=== PATIENT | male | born 1930 | race Hispanic/Latino ===

== ENCOUNTER 2018-05-20 11:06 | Day surgery (SDC) | payer MEDICARE, BC ==
[2018-05-17 13:03] VITALS: BMI 25.9
[2018-05-20] MEDS ORDERED: Midazolam 2 MG/2 ML VIAL ONE (14:43)
[2018-05-20] MEDS ORDERED: Lidocaine 1% Inj (20ml) ONE (14:43)
[2018-05-20] MEDS ORDERED: Oxycodone/Acetaminophen 5/325 mg Tab PO PRN (16:12)
[2018-05-20] MEDS ORDERED: Sodium Chloride 0.45% 1,000 ML IV SCH (16:15)
[2018-05-20 17:15] VITALS: RESP 18; TEMP 97.8; O2SAT 96
[2018-05-20 17:50] VITALS: BP 132/70; PULSE 73
--- NOTE | 2018-05-20 19:53 | CT ---
PROCEDURE: CT guided liver biopsy. HISTORY: Pancreatic mass with multiple liver lesions. Evaluate for metastatic disease. PHYSICIAN(S): Albert Clark MD. TECHNIQUE: The relative risks and indications of the procedure were explained to the patient and consent obtained. The patient was placed supine on the CT scanner and preliminary images through the liver obtained. Conscious sedation and monitoring were provided throughout the procedure by a nurse. A 2.5 cm lesion in the right lobe of the liver adjacent to the gallbladder was selected for biopsy. . A right lateral approach was selected and the area prepped and draped in the usual sterile fashion. 1% Xylocaine was used to anesthetize the skin and soft tissues. A 17-gauge guiding needle was advanced into the 2.5 cm right liver mass. Its position was confirmed with CT. Using coaxial technique, multiple core biopsies were obtained. The postprocedure images show no evidence of significant hemorrhage. IMPRESSION: 1. CT-guided liver biopsy as described above.
== END 2018-05-20 17:50 | disposition home or self-care (01) ==
LOC: SDS 11:06
PROVIDERS: ATTEND Radiology Vascular & Interventional Radiology
DX: K86.89 Other specified diseases of pancreas (principal); K76.89 Other specified diseases of liver
CPT/HCPCS: 47000; 77012; 88307; J2250; J2405; J3010; J7030

== ENCOUNTER 2018-06-15 08:23 | Day surgery (SDC) | payer MEDICARE, BC ==
[2018-06-14 11:22] VITALS: BMI 26.1
[2018-06-15 09:04] LABS: BASO # 0.02 K/mm3 (0.0-2.0); BASO % 0.4 % (0.0-3.0); EOS # 0.1 (0.0-0.7); EOS % 1.5 % (1.5-5.0); GRAN # 3.25 (1.4-6.5); GRAN % 62.2 % (50.0-68.0); HEMOGLOBIN 12.5 g/dL (14.0-18.0); LYMPH # 1.4 (1.2-3.4); LYMPH % 25.9 % (22.0-35.0); MEAN CELL VOLUME 88.6 fl (80.0-105.0); MEAN CORPUSCULAR HEMOGLOBIN 29.6 pg (25.0-35.0); MEAN CORPUSCULAR HGB CONC 33.4 g/dl (31.0-37.0); MEAN PLATELET VOLUME 9.2 fl (7.0-11.0); MONO # 0.5 (0.1-0.6); RBC 4.22 10^6/uL (3.5-6.1); RED CELL DISTRIBUTION WIDTH 14.5 % (11.5-14.5); WHITE BLOOD COUNT 5.2 10^3/ul (4.5-11.0)
[2018-06-15 09:07] LABS: INR 0.99; PROTHROMBIN TIME 11.4 SECONDS (9.4-12.5)
[2018-06-15 09:10] LABS: PARTIAL THROMBOPLASTIN TIME 27.9 Seconds (25.1-36.5)
[2018-06-15] MEDS ORDERED: Midazolam 2 MG/2 ML VIAL ONE (11:14)
[2018-06-15] MEDS ORDERED: Oxycodone/Acetaminophen 5/325 mg Tab PO PRN (12:11)
[2018-06-15] MEDS ORDERED: Sodium Chloride 0.45% 1,000 ML IV SCH (12:15)
[2018-06-15 12:31] VITALS: O2SAT 96
[2018-06-15 13:18] VITALS: BP 143/46; PULSE 61; RESP 20; TEMP 97
--- NOTE | 2018-06-15 15:14 | VASCULAR ---
PROCEDURE: Ultrasound and fluoroscopic right internal jugular venous access port. CLINICAL HISTORY: Pancreatic carcinoma.Venous port for chemotherapy. PHYSICIAN(S): Albert Clark M.D. TECHNIQUE: The relative risks and indications of the procedure were explained to the patient and his daughter and consent obtained. The patient was placed supine on the arteriogram table and the right neck and chest prepped and draped in the usual sterile fashion. Conscious sedation monitoring was provided throughout the procedure by a nurse. Antibiotics were given prior to the procedure. Under direct ultrasound guidance, the right internal jugular vein was punctured with a micro-puncture set. A 0.035 angled Glidewire was advanced into the IVC. A 4 cm incision was made below the right clavicle and the pocket blunted dissected. A 8 Spanish single-lumen catheter, 22 cm long, was advanced to the SVC/RA junction. The catheter was trimmed and attached to the port. The port aspirates and injects easily. The port was placed in the pocket and closed in 2 layers. The patient tolerated the procedure well. IMPRESSION: Ultrasound and fluoroscopically placed right internal jugular venous access port.
== END 2018-06-15 13:36 | disposition home or self-care (01) ==
LOC: SDS 08:23
PROVIDERS: ATTEND Radiology Vascular & Interventional Radiology
DX: C25.9 Malignant neoplasm of pancreas, unspecified (principal)
CPT/HCPCS: 36415; 36561; 76937; 77001; 85025; 85610; 85730; 99152; C1769; C1788; J0690; J1644; J2250; J2405; J3010; J7030

== ENCOUNTER 2018-10-31 12:07 | Emergency (ER) | payer MEDICARE, BC ==
[2018-10-31 12:33] VITALS: BMI 27.8
[2018-10-31 12:35] VITALS: TEMP 97.4
--- NOTE | 2018-10-31 12:46 | ED PDOC ---
Arrival/HPI - General Time Seen by Provider: 10/31/18 12:19 Historian: Patient - History of Present Illness Narrative History of Present Illness (Text): 10/31/18 12:47 88 year old male, whose past medical history includes pancreatic CA (chemotherapy on 10/26/18), and persistent hernia, presents with abdominal pain associated with hernia, for 1 week. Patient states he's had hernia for many months. Patient informs starting chemotherapy in the summer, and it exacerbating his hernia. Patient informs of chronic constipation, which he states makes he pain much worse. Patient denies any fevers, chills, headache, dizziness, chest pain, shortness of breath, cough, back pain, neck pain, or any other complaint. Oncology: Dr Pearson PMD: Dr Oates Time/Duration: 1 week Symptom Course: Unchanged Past Medical History - Provider Review Nursing Documentation Reviewed: Yes - Infectious Disease Hx of Infectious Diseases: None - Cardiac Hx Pacemaker: No - Neurological Hx Paralysis: No - Hematological/Oncological Hx Blood Transfusions: No Hx Blood Transfusion Reaction: No - Musculoskeletal/Rheumatological Hx Musculoskeletal Disorders: Yes - Psychiatric Hx Emotional Abuse: No Hx Physical Abuse: No Hx Substance Use: No - Anesthesia Hx Anesthesia Reactions: No Hx Malignant Hyperthermia: No - Suicidal Assessment Feels Threatened In Home Enviroment: No Family/Social History - Physician Review Nursing Documentation Reviewed: Yes Family/Social History: No Known Family HX Hx Alcohol Use: Yes (FEW GLASSES WINE/NIGHT; STOPPED FEW WEEKS AGO) Hx Substance Use: No Allergies/Home Meds Allergies/Adverse Reactions: Allergies No Known Allergies Allergy (Verified 10/31/18 12:35) Home Medications: Home Meds Medication Instructions Recorded Confirmed Aspirin [Adult Low Dose Aspirin EC] 81 mg PO QAM 05/18/18 06/15/18 Atorvastatin [Lipitor] 20 mg PO QAM 05/18/18 06/15/18 Fluticasone/Vilanterol [Breo 1 pow IH [facility] 05/18/18 06/15/18 Ellipta] Umeclidinium [place] [Incruse 62.5 mcg [facility] 05/18/18 06/15/18 Ellipta] Lipase/Protease/Amylase [Creon 1 cap PO ACTID 06/14/18 06/15/18 [id number]] Review of Systems - Physician Review All systems were reviewed & negative as marked: Yes - Review of Systems Constitutional: absent: Fevers, Night Sweats Respiratory: absent: SOB, Cough Cardiovascular: absent: Chest Pain Gastrointestinal: Abdominal Pain Musculoskeletal: absent: Back Pain, Neck Pain Neurological: absent: Headache, Dizziness Physical Exam Vital Signs Reviewed: Yes Vital Signs Temp Pulse Resp BP Pulse Ox 10/31/18 12:33 97.4 F L 95 H 20 119/76 96 Temperature: Afebrile Blood Pressure: Normal Pulse: Regular Respiratory Rate: Normal Appearance: Positive for: Well-Appearing, Non-Toxic, Comfortable Pain Distress: None Mental Status: Positive for: Alert and Oriented X 3 - Systems Exam Head: Present: Atraumatic, Normocephalic Pupils: Present: PERRL Extroacular Muscles: Present: EOMI Conjunctiva: Present: Normal Mouth: Present: Moist Mucous Membranes Neck: Present: Normal Range of Motion Respiratory/Chest: Present: Clear to Auscultation, Good Air Exchange. No: Respiratory Distress, Accessory Muscle Use Cardiovascular: Present: Regular Rate and Rhythm, Normal S1, S2. No: Murmurs Abdomen: Present: Tenderness (Hernia mildly tender), Hernias (right inguinal hernia ) Back: Present: Normal Inspection Upper Extremity: Present: Normal Inspection. No: Cyanosis, Edema Lower Extremity: Present: Normal Inspection. No: Edema Neurological: Present: Speech Normal Skin: Present: Warm, Dry, Normal Color. No: Rashes Psychiatric: Present: Alert, Oriented x 3, Normal Insight, Normal Concentration Medical Decision Making ED Course and Treatment: 10/31/18 12:56 Impression: 88 year old male presents with hernia and abdominal pain. Plan: -- CMP, Lipase, Mg -- CBC, Heme -- Urinalysis -- Reassess and disposition Prior Visits: Notes and results from previous visits were reviewed. Progress Notes: 10/31/18 12:57 EKG reviewed by me, shows: Normal sinus rhythm @85 Right Bundle Branch Block 10/31/18 15:02 incerated hernia reduced by surgery bedside. leukocysosis suspected 2/2 pillo serrano. s/p reductions abd soft no ttp pain resolved. asking for dc. updated dr juarez covering dr puente./ - Scribe Statement The provider has reviewed the documentation as recorded by the Sharlene Jamison Provider Scribe Attestation: All medical record entries made by the Scribe were at my direction and personally dictated by me. I have reviewed the chart and agree that the record accurately reflects my personal performance of the history, physical exam, medical decision making, and the department course for this patient. I have also personally directed, reviewed, and agree with the discharge instructions and disposition. Disposition/Present on Arrival - Present on Arrival Any Indicators Present on Arrival: No History of DVT/PE: No History of Uncontrolled Diabetes: No Urinary Catheter: No History of Decub. Ulcer: No History Surgical Site Infection Following: None - Disposition Have Diagnosis and Disposition been Completed?: Yes Diagnosis: Hernia Disposition: HOME/ ROUTINE Disposition Time: 14:00 Condition: STABLE Discharge Instructions (ExitCare): Abdominal Hernia (DC) Additional Instructions: return to er with worsening symptoms or concerns. Referrals: Gerardo Oates MD [Primary Care Provider] - Follow up with primary Mckay Verma MD [Staff Provider] - Follow up with primary Feliciano Cote MD [Staff Provider] - Follow up with primary Forms: [employer] (Polish)
[2018-10-31] MEDS ORDERED: Morphine 2 mg/ml ISec IVP STA (13:10)
[2018-10-31] MEDS ORDERED: Sodium Chloride 0.9% 500 ML IV STA (13:10)
[2018-10-31 13:40] LABS: VENOUS BLOOD GAS BASE EXCESS 2.4 mmol/L (0.0-2.0); VENOUS BLOOD GAS PO2 69 mm/Hg (30-55); VENOUS BLOOD PH 7.32 (7.32-7.43)
[2018-10-31 13:43] LABS: BASO # 0.02 K/mm3 (0.0-2.0); BASO % 0.1 % (0.0-3.0); EOS % 0.2 % (1.5-5.0); GRAN # 15.34 (1.4-6.5); GRAN % 93.7 % (50.0-68.0); HEMOGLOBIN 9.9 g/dL (14.0-18.0); LYMPH # 0.8 (1.2-3.4); LYMPH % 5.1 % (22.0-35.0); MEAN CELL VOLUME 88.4 fl (80.0-105.0); MEAN CORPUSCULAR HGB CONC 31.6 g/dl (31.0-37.0); MEAN PLATELET VOLUME 9.6 fl (7.0-11.0); MONO # 0.2 (0.1-0.6); MONO % 0.9 % (1.0-6.0); PLATELET COUNT 289 10^3/uL (120.0-450.0); RBC 3.54 10^6/uL (3.5-6.1); WHITE BLOOD COUNT 16.4 10^3/uL (4.5-11.0)
[2018-10-31 13:56] LABS: ALB/GLOB RATIO 1.4 (1.1-1.8); ALBUMIN 3.5 g/dL (3.0-4.8); ALT/SGPT 41 U/L (7-56); AST/SGOT 25 U/L (17-59); BLOOD UREA NITROGEN 10 mg/dL (7-21); CALCIUM 8.9 mg/dL (8.4-10.5); GFR NON-AFRICAN AMERICAN > 60; LIPASE 35 U/L (23-300)
--- NOTE | 2018-10-31 14:01 | RAD ---
Date of service: 10/31/2018 HISTORY: abd pain COMPARISON: 11/29/2017 FINDINGS: LUNGS: No active pulmonary disease. PLEURA: No significant pleural effusion identified, no pneumothorax apparent. CARDIOVASCULAR: Aortic calcification Normal cardiac size. No pulmonary vascular congestion. OSSEOUS STRUCTURES: No significant abnormalities. VISUALIZED UPPER ABDOMEN: Normal. OTHER FINDINGS: Right-sided Port-A-Cath IMPRESSION: No active disease.
[2018-10-31 14:09] LABS: INR 1.03; PROTHROMBIN TIME 11.9 SECONDS (9.4-12.5)
[2018-10-31 14:18] LABS: LYMPHOCYTE 1 % (22.0-35.0); NEUTROPHIL 99 % (50.0-70.0); PLATELET ESTIMATE NORMAL (NORMAL)
--- NOTE | 2018-10-31 14:20 | CP.PCM.CON ---
History of Present Illness - History of Present Illness History of Present Illness: Surgery consult note for Dr. Cote, covering for Dr. Verma Consulted for: painful inguinal hernia Patient is an 88M with extensive PMH including CAD s/p NORMA, COPD, GERD and pancreatic cancer with invasion of the liver who is on chemotherapy and PSH including open appendectomy for ruptured appendix who has had BL inguinal her nias for several years. Patient states that the hernias have started giving him pain since he has started chemotherapy which causes him constipation. Patient states that yesterday he took several stool softeners and had many large, non- bloody bowel movements and last night/this AM he had worsening pain in his right inguinal hernia and could not reduce either inguinal hernia. He denies any nausea, vomiting, abdominal pain, fevers, chills, dysuria, hematuria, melena, hematochezia, chest pain, or SOB. He is passing gas. PMH: CAD, COPD, GERD, pancreatic adenocarcinoma PSH; R portacath, percutaneous coronary stent 2014, spinal surgery, open appendectomy ALL: NKDA Social: smoking cigarettes for 50 years--quit 20 years ago, smoked cigars--quit 5 years ago. 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 when he began chemotherapy, denies any drugs Review of Systems - Review of Systems All systems: reviewed and no additional remarkable complaints except (as per HPI) Past Patient History - Infectious Disease Hx of Infectious Diseases: None - Past Medical History & Family History Past Medical History?: Yes Past Family History: Reviewed and not pertinent - Past Social History Smoking Status: Former Smoker (quit cigarettes 20 years ago--smoked 50 years) Cigar Use: Yes (former quit 5 years ago) Alcohol: Other (former daily whisky) Drugs: Denies Home Situation {Lives}: With Family - CARDIAC Hx Pacemaker: No - NEUROLOGICAL Hx Paralysis: No - HEMATOLOGICAL/ONCOLOGICAL Hx Blood Transfusions: No Hx Blood Transfusion Reaction: No - MUSCULOSKELETAL/RHEUMATOLOGICAL Hx Musculoskeletal Disorders: Yes - PSYCHIATRIC Hx Emotional Abuse: No Hx Physical Abuse: No Hx Substance Use: No - SURGICAL HISTORY Hx Surgeries: Yes - ANESTHESIA Hx Anesthesia Reactions: No Hx Malignant Hyperthermia: No Meds Allergies/Adverse Reactions: Allergies Allergy/AdvReac Type Severity Reaction Status Date / Time No Known Allergies Allergy Verified 10/31/18 12:35 Physical Exam - Constitutional Appears: Well, Non-toxic, No Acute Distress - Head Exam Head Exam: ATRAUMATIC, NORMOCEPHALIC - Eye Exam Eye Exam: Normal appearance. absent: Conjunctival injection, Scleral icterus - ENT Exam ENT Exam: Mucous Membranes Moist, Normal Oropharynx - Respiratory Exam Respiratory Exam: NORMAL BREATHING PATTERN. absent: Accessory Muscle Use, Respiratory Distress - Cardiovascular Exam Cardiovascular Exam: RRR - GI/Abdominal Exam GI & Abdominal Exam: Soft. absent: Distended, Rebound, Tenderness - Exam Additional comments: BL inguinal hernias with no overlying skin changes L inguinal hernia easily reducible, non-tender R inguinal hernia reduced with some difficulty, moderately tender - Extremities Exam Extremities exam: Positive for: pedal pulses present. Negative for: calf tende rness, pedal edema - Neurological Exam Neurological exam: Alert, Oriented x3 - Psychiatric Exam Psychiatric exam: Normal Affect, Normal Mood - Skin Skin Exam: Dry, Intact, Normal Color, Warm Results - Vital Signs Recent Vital Signs: Last Vital Signs Temp 97.4 F L 10/31/18 12:33 Pulse 95 H 10/31/18 12:33 Resp 20 10/31/18 12:33 BP 119/76 10/31/18 12:33 Pulse Ox 96 10/31/18 12:33 - Labs Result Diagrams: 10/31/18 13:15 10/31/18 13:15 Labs: Laboratory Results - last 24 hr 10/31/18 10/31/18 10/31/18 13:15 13:15 13:15 WBC 16.4 H RBC 3.54 Hgb 9.9 L D Hct 31.3 L MCV 88.4 MCH 28.0 MCHC 31.6 RDW 18.0 H Plt Count 289 MPV 9.6 Gran % 93.7 H Lymph % (Auto) 5.1 L [place] % (Auto) 0.9 L Eos % (Auto) 0.2 L Baso % (Auto) 0.1 Gran # 15.34 H Lymph # (Auto) 0.8 L [place] # (Auto) 0.2 Eos # (Auto) 0.0 Baso # (Auto) 0.02 PT 11.9 INR 1.03 APTT 25.0 L pO2 VBG pH VBG pCO2 VBG HCO3 VBG Total CO2 VBG O2 Sat (Calc) VBG Base Excess VBG Potassium Sodium 131 L Chloride 97 L Glucose Lactate FiO2 Potassium 4.6 Carbon Dioxide 29 Anion Gap 10 BUN 10 Creatinine 0.6 L Est GFR ( Amer) > 60 Est GFR (Non-Af Amer) > 60 Random Glucose 105 Calcium 8.9 Magnesium 1.9 Total Bilirubin 0.9 AST 25 ALT 41 Alkaline Phosphatase 121 Total Protein 6.1 Albumin 3.5 Globulin 2.6 Albumin/Globulin Ratio 1.4 Lipase 35 Venous Blood Potassium 10/31/18 13:15 WBC RBC Hgb Hct MCV MCH MCHC RDW Plt Count MPV Gran % Lymph % (Auto) [place] % (Auto) Eos % (Auto) Baso % (Auto) Gran # Lymph # (Auto) [place] # (Auto) Eos # (Auto) Baso # (Auto) PT INR APTT pO2 69 H VBG pH 7.32 VBG pCO2 58.0 VBG HCO3 29.9 H VBG Total CO2 31.7 H VBG O2 Sat (Calc) 95.2 H VBG Base Excess 2.4 H VBG Potassium 4.6 Sodium 131.0 L Chloride 98.0 Glucose 107 Lactate 1.0 FiO2 21.0 Potassium Carbon Dioxide Anion Gap BUN Creatinine Est GFR ( Amer) Est GFR (Non-Af Amer) Random Glucose Calcium Magnesium Total Bilirubin AST ALT Alkaline Phosphatase Total Protein Albumin Globulin Albumin/Globulin Ratio Lipase Venous Blood Potassium 4.6 Assessment & Plan - Assessment and Plan (Free Text) Assessment: 88M with reducible BL inguinal hernias Plan: Inguinal hernias were reduced at bedside in the ER. Patient had no abdominal pain, no sign of obstruction Patient is clear for discharge to home with follow up with Dr. Verma in his office if needed for recurrent symptoms Patient educated on when to return to the ER: any fevers, chills, abdominal pain, nausea, vomiting, failure to pass gas or a bowel movement, or any other c oncerning symptoms. Discussed with Dr. Cote, who is covering for Dr. Luci Duncan, PGY2
[2018-10-31 14:34] VITALS: BP 124/80; PULSE 88; RESP 18
[2018-10-31 14:44] VITALS: O2SAT 99
--- NOTE | 2018-11-01 01:13 | CARD ---
APPROVED REPORT Date of service: 10/31/2018 EKG Measurement Heart [id number] IN [id number] <Conclusion> Sinus rhythm with 1st degree AV block with premature atrial complexes Left axis deviation Right bundle branch block Abnormal ECG
== END 2018-10-31 14:44 | disposition home or self-care (01) ==
LOC: ED 12:07
DX: K40.20 Bilateral inguinal hernia, without obstruction or gangrene, not specified as recurrent (principal); I25.10 Atherosclerotic heart disease of native coronary artery without angina pectoris; J44.9 Chronic obstructive pulmonary disease, unspecified; K21.9 Gastro-esophageal reflux disease without esophagitis; C25.9 Malignant neoplasm of pancreas, unspecified; Z87.891 Personal history of nicotine dependence
CPT/HCPCS: 71045; 80053; 82803; 83690; 83735; 85025; 85610; 85730; 93005; 96361; 96374; 99284; J2270; J7040

== ENCOUNTER 2018-11-06 08:49 | Inpatient (IN) | payer MEDICARE, BC ==
[2018-11-06] MEDS ORDERED: Sodium Chloride 0.9% 500 ML IV STA (09:17)
--- NOTE | 2018-11-06 09:23 | ED PDOC ---
Arrival/HPI - General Chief Complaint: Abdominal Pain Time Seen by Provider: 11/06/18 09:12 Historian: Patient - History of Present Illness Narrative History of Present Illness (Text): 11/06/18 09:20 88 year old male, whose past medical history includes pancreatic CA, hernia, chemotherapy, and CAD, who presents to the Emergency department complaining of abdominal hernia pain, subjective fever, and diarrhea. Patient was seen and d/c in the Emergency department last week. Patient denies any chills, chest pain, shortness of breath, nausea, vomiting, back pain, neck pain, headache, dizziness, or any other complaint. Symptom Onset: Gradual Symptom Course: Unchanged Activities at Onset: Light Context: Home Past Medical History - Provider Review Nursing Documentation Reviewed: Yes - Infectious Disease Hx of Infectious Diseases: None - Cardiac Hx Hypertension: Yes Hx Pacemaker: No - Neurological Hx Paralysis: No - Hematological/Oncological Hx Blood Transfusions: No Hx Blood Transfusion Reaction: No Hx Cancer: Yes (Pancreatic) - Musculoskeletal/Rheumatological Hx Musculoskeletal Disorders: Yes - Gastrointestinal Other/Comment: Pancreatic cancer - Psychiatric Hx Emotional Abuse: No Hx Physical Abuse: No Hx Substance Use: No - Surgical History Other/Comment: Port-a-cath - Anesthesia Hx Anesthesia Reactions: No Hx Malignant Hyperthermia: No - Suicidal Assessment Feels Threatened In Home Enviroment: No Family/Social History - Physician Review Nursing Documentation Reviewed: Yes Family/Social History: Unknown Family HX Smoking Status: Former Smoker Hx Alcohol Use: Yes (FEW GLASSES WINE/NIGHT; STOPPED FEW WEEKS AGO) Hx Substance Use: No Allergies/Home Meds Allergies/Adverse Reactions: Allergies No Known Allergies Allergy (Verified 11/06/18 09:10) Home Medications: Home Meds Medication Instructions Recorded Confirmed Aspirin [Adult Low Dose Aspirin EC] 81 mg PO QAM 05/18/18 11/06/18 Atorvastatin [Lipitor] 20 mg PO QAM 05/18/18 11/06/18 Fluticasone/Vilanterol [Breo 1 pow IH QAM 05/18/18 11/06/18 Ellipta] Umeclidinium [place] [Incruse 62.5 mcg IH QAM 05/18/18 11/06/18 Ellipta] Lipase/Protease/Amylase [Creon 1 cap PO ACTID 06/14/18 11/06/18 [id number]] Review of Systems - Physician Review All systems were reviewed & negative as marked: Yes - Review of Systems Constitutional: Normal Eyes: Normal ENT: Normal Respiratory: Normal. absent: SOB, Cough Cardiovascular: Normal. absent: Chest Pain Gastrointestinal: Abdominal Pain, Diarrhea. absent: Nausea, Vomiting Genitourinary Male: Normal. absent: Dysuria, Frequency Musculoskeletal: Normal. absent: Back Pain, Neck Pain Skin: Normal. absent: Rash Neurological: Normal. absent: Headache, Dizziness Endocrine: Normal Hemo/Lymphatic: Normal Psychiatric: Normal Physical Exam Vital Signs Reviewed: Yes Vital Signs Temp Pulse Resp BP Pulse Ox 11/06/18 09:01 98.8 F 78 18 121/70 95 Temperature: Afebrile Blood Pressure: Normal Pulse: Regular Respiratory Rate: Normal Appearance: Positive for: Well-Appearing, Non-Toxic, Comfortable Pain Distress: None Mental Status: Positive for: Alert and Oriented X 3 - Systems Exam Head: Present: Atraumatic, Normocephalic Pupils: Present: PERRL Extroacular Muscles: Present: EOMI Conjunctiva: Present: Normal Mouth: Present: Moist Mucous Membranes Neck: Present: Normal Range of Motion Respiratory/Chest: Present: Clear to Auscultation, Good Air Exchange. No: Respiratory Distress, Accessory Muscle Use Cardiovascular: Present: Regular Rate and Rhythm, Normal S1, S2. No: Murmurs Abdomen: Present: Tenderness (mild tenderness rt side), Hernias (bilateral inguinal hernias). No: Distention, Peritoneal Signs Back: Present: Normal Inspection Upper Extremity: Present: Normal Inspection. No: Cyanosis, Edema Lower Extremity: Present: Normal Inspection. No: Edema Neurological: Present: GCS=15, CN II-XII Intact, Speech Normal Skin: Present: Warm, Dry, Normal Color. No: Rashes Psychiatric: Present: Alert, Oriented x 3, Normal Insight, Normal Concentration Medical Decision Making ED Course and Treatment: 11/06/18 09:23 Impression: 88 year old male presents to the Emergency department complaining of abdominal hernia pain, fever, and diarrhea. Plan: -- VBG -- Cardiac ISO -- EKG -- Labs -- Chest X-ray -- Sodium Chloride -- UA -- Reassess and disposition Progress Notes: 11/06/18 09:32 EKG reviewed, shows NSR at 94 bpm. PVC's. 11/06/18 09:54 CXR reviewed, shows: IMPRESSION: Stable chronic prominence of the bilateral interstitial markings. No focal consolidation or pleural effusion. 11/06/18 14:17 CT abd/pelvis: IMPRESSION: Pancolitis, likely infectious/inflammatory in etiology. Redemonstration of pancreatic neck/body mass and Hepatic metastases. Additional stable findings as above. - RAD Interpretation Radiology Orders: 11/06/18 09:16 CHEST PORTABLE [RAD] Stat - Medication Orders Current Medication Orders: Sodium Chloride (Sodium Chloride 0.9%) 500 mls @ 999 mls/hr IV .Q31M STA Stop: 11/06/18 09:47 - Scribe Statement The provider has reviewed the documentation as recorded by the Scribe Stacy Hameed All medical record entries made by the Scribe were at my direction and personally dictated by me. I have reviewed the chart and agree that the record accurately reflects my personal performance of the history, physical exam, medical decision making, and the department course for this patient. I have also personally directed, reviewed, and agree with the discharge instructions and disposition. Disposition/Present on Arrival - Present on Arrival History of DVT/PE: No History of Uncontrolled Diabetes: No Urinary Catheter: No History of Decub. Ulcer: No History Surgical Site Infection Following: None - Disposition
[2018-11-06 09:42] LABS: BASO # 0.02 K/mm3 (0.0-2.0); BASO % 0.2 % (0.0-3.0); EOS % 0.1 % (1.5-5.0); GRAN # 7.5 (1.4-6.5); GRAN % 73.3 % (50.0-68.0); HEMOGLOBIN 10.1 g/dL (14.0-18.0); LYMPH # 0.8 (1.2-3.4); LYMPH % 7.6 % (22.0-35.0); MEAN CELL VOLUME 86.3 fl (80.0-105.0); MEAN CORPUSCULAR HEMOGLOBIN 27.6 pg (25.0-35.0); MEAN PLATELET VOLUME 9.6 fl (7.0-11.0); MONO # 1.9 (0.1-0.6); MONO % 18.8 % (1.0-6.0); RBC 3.66 10^6/uL (3.5-6.1); RED CELL DISTRIBUTION WIDTH 17.7 % (11.5-14.5); VENOUS BLOOD GAS BASE EXCESS -0.4 mmol/L (0.0-2.0); VENOUS BLOOD GAS PO2 116 mm/Hg (30-55); VENOUS BLOOD PH 7.38 (7.32-7.43); WHITE BLOOD COUNT 10.2 10^3/uL (4.5-11.0)
--- NOTE | 2018-11-06 09:44 | RAD ---
Date of service: 11/06/2018 HISTORY: abd pain COMPARISON: Chest radiograph dated 10/31/2018. FINDINGS: LUNGS: Stable chronic prominence of the bilateral interstitial markings. No focal consolidation. PLEURA: No significant pleural effusion identified, no pneumothorax apparent. CARDIOVASCULAR: Aortic atherosclerotic calcifications. Cardiomediastinal silhouette stably enlarged. OSSEOUS STRUCTURES: Unchanged. VISUALIZED UPPER ABDOMEN: Normal. OTHER FINDINGS: Right internal jugular access chest port, unchanged.. IMPRESSION: Stable chronic prominence of the bilateral interstitial markings. No focal consolidation or pleural effusion.
[2018-11-06 09:49] LABS: INR 1.11; PARTIAL THROMBOPLASTIN TIME 28.6 Seconds (25.1-36.5); PROTHROMBIN TIME 12.8 SECONDS (9.4-12.5)
[2018-11-06 10:03] LABS: TROPONIN I 0.06 ng/mL
[2018-11-06] MEDS ORDERED: Iohexol 240 (50 ml) ONE (10:11)
[2018-11-06] MEDS ORDERED: Iohexol 350 MG/100 ML VIAL ONE (10:11)
[2018-11-06 10:28] LABS: ALB/GLOB RATIO 1.3 (1.1-1.8); ALBUMIN 3.6 g/dL (3.0-4.8); ALT/SGPT 40 U/L (7-56); AST/SGOT 25 U/L (17-59); BLOOD UREA NITROGEN 9 mg/dL (7-21); CALCIUM 8.7 mg/dL (8.4-10.5); GFR NON-AFRICAN AMERICAN > 60; LIPASE 35 U/L (23-300)
[2018-11-06] MEDS ORDERED: Morphine 4 mg/ml ISec IVP STA (10:29)
--- NOTE | 2018-11-06 11:33 | CP.PCM.CON ---
History of Present Illness - History of Present Illness History of Present Illness: General surgery consult note for Dr. Cote, covering Dr. 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 Patient states that the hernias have started giving him pain since he has started chemotherapy which causes him constipation. Patient presented to the ED 6 days ago after taking multiple stool softeners with a painful right inguinal hernia that he couldn't reduce at home. Hernia was reduced at bedside with improvement in the symptoms and patient was sent home. Patient states that he has had persistent pain in the right groin all week, and has had non-bloody diarrhea for a few days, where he has a bowel movement every 2-3 hours. The hernia has recurred and he hasn't been able to reduce it, and now is associated with RLQ abdominal pain. He also admits to increased urinary frequency but denies any nausea, vomiting, fevers, chills, dysuria, hematuria, melena, hematochezia, chest pain, or SOB. He is passing gas. Hernia was reducible at bedside but recurred shortly afterwards. CT with PO contrast was performed which showed no intestinal obstruction, BL inguinal hernias with fat and fluid contents only, but pancolitis. PMH: CAD, COPD, GERD, pancreatic adenocarcinoma, BL inguinal hernias PSH; R portacath, percutaneous coronary stent 2014, spinal surgery, open appendectomy ALL: NKDA Social: smoking cigarettes for 50 years--quit 20 years ago, smoked cigars--quit 5 years ago. 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 when he began chemoth erapy, denies any drugs Review of Systems - Review of Systems All systems: reviewed and no additional remarkable complaints except (as per HPI) Past Patient History - Infectious Disease Hx of Infectious Diseases: None - Past Medical History & Family History Past Medical History?: Yes Past Family History: Reviewed and not pertinent - Past Social History Smoking Status: Former Smoker Alcohol: Other (former drinker 2-3 whiskies/day until began chemotherapy) Drugs: Denies - CARDIAC Hx Hypertension: Yes Hx Pacemaker: No - NEUROLOGICAL Hx Paralysis: No - HEMATOLOGICAL/ONCOLOGICAL Hx Blood Transfusions: No Hx Blood Transfusion Reaction: No Hx Cancer: Yes (Pancreatic) - MUSCULOSKELETAL/RHEUMATOLOGICAL Hx Musculoskeletal Disorders: Yes - GASTROINTESTINAL Other/Comment: Pancreatic cancer - PSYCHIATRIC Hx Emotional Abuse: No Hx Physical Abuse: No Hx Substance Use: No - SURGICAL HISTORY Other/Comment: Port-a-cath - ANESTHESIA Hx Anesthesia Reactions: No Hx Malignant Hyperthermia: No Meds Allergies/Adverse Reactions: Allergies Allergy/AdvReac Type Severity Reaction Status Date / Time No Known Allergies Allergy Verified 11/06/18 09:10 Physical Exam - Constitutional Appears: Well, Non-toxic, No Acute Distress - Head Exam Head Exam: ATRAUMATIC, NORMOCEPHALIC - Eye Exam Eye Exam: Normal appearance. absent: Conjunctival injection, Scleral icterus - ENT Exam ENT Exam: Mucous Membranes Moist, Normal Oropharynx - Respiratory Exam Respiratory Exam: NORMAL BREATHING PATTERN. absent: Accessory Muscle Use, Respiratory Distress - Cardiovascular Exam Cardiovascular Exam: RRR - GI/Abdominal Exam GI & Abdominal Exam: Soft, Tenderness (RLQ mild tenderness to palpation). absent: Distended - Exam Additional comments: Right inguinal hernia with palpable bowel contents, mildly tender, no overlying skin changes, reducible left inguinal hernia with palpable bowel contents, non-tender, no overlying skin changes, easily reduced - Extremities Exam Extremities exam: Positive for: pedal pulses present. Negative for: calf tenderness, pedal edema - Neurological Exam Neurological exam: Alert, Oriented x3 - Psychiatric Exam Psychiatric exam: Normal Affect, Normal Mood - Skin Skin Exam: Dry, Intact, Normal Color, Warm Results - Vital Signs Recent Vital Signs: Last Vital Signs Temp 98.8 F 11/06/18 09:01 Pulse 78 11/06/18 09:01 Resp 18 11/06/18 09:01 BP 121/70 11/06/18 09:01 Pulse Ox 95 11/06/18 09:01 - Labs Result Diagrams: 11/06/18 09:25 11/06/18 09:25 Labs: Laboratory Results - last 24 hr 11/06/18 11/06/18 11/06/18 09:25 09:25 09:25 WBC 10.2 D RBC 3.66 Hgb 10.1 L Hct 31.6 L MCV 86.3 MCH 27.6 MCHC 32.0 RDW 17.7 H Plt Count 153 MPV 9.6 Gran % 73.3 H Lymph % (Auto) 7.6 L Banner % (Auto) 18.8 H Eos % (Auto) 0.1 L Baso % (Auto) 0.2 Gran # 7.50 H Lymph # (Auto) 0.8 L [place]anner # (Auto) 1.9 H Eos # (Auto) 0.0 Baso # (Auto) 0.02 PT 12.8 H INR 1.11 APTT 28.6 pO2 VBG pH VBG pCO2 VBG HCO3 VBG Total CO2 VBG O2 Sat (Calc) VBG Base Excess VBG Potassium Sodium 128 L Chloride 97 L Glucose Lactate FiO2 Potassium 4.3 Carbon Dioxide 27 Anion Gap 8 L BUN 9 Creatinine 0.6 L Est GFR ( Amer) > 60 Est GFR (Non-Af Amer) > 60 Random Glucose 110 Calcium 8.7 Magnesium 1.8 Total Bilirubin 0.6 AST 25 ALT 40 Alkaline Phosphatase 164 H D Lactate Dehydrogenase 419 Total Creatine Kinase 24 L Troponin I 0.06 Total Protein 6.3 Albumin 3.6 Globulin 2.7 Albumin/Globulin Ratio 1.3 Lipase 35 Venous Blood Potassium 11/06/18 09:25 WBC RBC Hgb Hct MCV MCH MCHC RDW Plt Count MPV Gran % Lymph % (Auto) Banner % (Auto) Eos % (Auto) Baso % (Auto) Gran # Lymph # (Auto) Banner # (Auto) Eos # (Auto) Baso # (Auto) PT INR APTT pO2 116 H VBG pH 7.38 VBG pCO2 42.0 VBG HCO3 24.8 VBG Total CO2 26.1 VBG O2 Sat (Calc) 99.1 H VBG Base Excess -0.4 L VBG Potassium 4.1 Sodium 129.0 L Chloride 97.0 L Glucose 109 Lactate 0.8 FiO2 21.0 Potassium Carbon Dioxide Anion Gap BUN Creatinine Est GFR ( Amer) Est GFR (Non-Af Amer) Random Glucose Calcium Magnesium Total Bilirubin AST ALT Alkaline Phosphatase Lactate Dehydrogenase Total Creatine Kinase Troponin I Total Protein Albumin Globulin Albumin/Globulin Ratio Lipase Venous Blood Potassium 4.1 Assessment & Plan - Assessment and Plan (Free Text) Assessment: 88M with pancolitis and painful right inguinal hernia, non-painful left inguinal hernia Plan: No surgical intervention indicated at this time--patient is currently on chem otherapy and has pancolitis, so repair of the inguinal hernia is not ideal. May reconsider if patient's hernia becomes incarcerated or shows signs of obstruction Trend CBC and BMP, Mag, phos while inpatient--supplement as needed PRN pain and nausea medication IVF PT, incentive spirometer, SCD's Discussed with Dr. Cote, covering Dr. Luci Duncan, PGY2
--- NOTE | 2018-11-06 13:46 | CT ---
Date of service: 11/06/2018 PROCEDURE: CT Abdomen and Pelvis with contrast HISTORY: abd pain vomiting diarhea, h/o of hernia COMPARISON: PET-CT dated 09/13/2018 TECHNIQUE: Contrast dose: 100 mL Omnipaque 350 Radiation dose: Total exam DLP = 607.73 mGy-cm. This CT exam was performed using one or more of the following dose reduction techniques: Automated exposure control, adjustment of the mA and/or kV according to patient size, and/or use of iterative reconstruction technique. FINDINGS: LOWER THORAX: Cardiomegaly. Coronary arterial and valvular calcifications. Partially imaged implanted cardiac device leads. Chronic bibasilar interstitial changes. Right lower lobe 1.0 cm and 5 mm adjacent pulmonary nodules. LIVER: Multiple low-density hepatic lesions, the largest of which measures 4.8 x 4.1 cm in the inferior right hepatic lobe. Small scattered hepatic cysts. Mild intrahepatic biliary ductal dilatation. GALLBLADDER AND BILE DUCTS: Distended gallbladder. Dilated CBD measuring up to 1.4 cm. PANCREAS: Pancreatic atrophy. Low-density pancreatic neck/body lesion measuring 1.6 x 1.9 cm. Dilated main pancreatic duct measuring 9 mm. SPLEEN: Unremarkable. ADRENALS: Unremarkable. No mass. KIDNEYS AND URETERS: Unremarkable. No hydronephrosis. No solid mass. VASCULATURE: Unremarkable. No aortic aneurysm. No aortic atherosclerotic calcification or mural plaque present. BOWEL: Diffuse colonic wall thickening and pericolonic inflammatory change. APPENDIX: Findings to suggest acute appendicitis. PERITONEUM: Bilateral fat fluid containing inguinal hernias. No free air. LYMPH NODES: Unremarkable. No enlarged lymph nodes. BLADDER: Unremarkable. REPRODUCTIVE: Unremarkable. BONES: Diffuse osteopenia. Scattered lucent lesions within a few vertebral bodies and within the left iliac bone, measuring 121.6 x 1.0 cm (series 3, image 106). Multilevel spinal degenerative changes. Prior laminectomies from L3-5. OTHER FINDINGS: None. IMPRESSION: Pancolitis, likely infectious/inflammatory in etiology. Redemonstration of pancreatic neck/body mass and Hepatic metastases. Additional stable findings as above.
[2018-11-06] MEDS ORDERED: Piperacillin/Tazobact 3.375 gm 100 ML IVPB STA (13:52)
[2018-11-06] MEDS ORDERED: Sodium Chloride 0.9% 1,000 ML IV SCH (16:00)
[2018-11-06] MEDS: LIPASE PO SCH (17:23)
[2018-11-06] MEDS: PROTEASE PO SCH (17:23)
[2018-11-06] MEDS: AMYLASE PO SCH (17:23)
[2018-11-06 17:39] VITALS: BMI 24.2
--- NOTE | 2018-11-06 20:22 | CARD ---
APPROVED REPORT Date of service: 11/06/2018 EKG Measurement Heart [id number] <Conclusion> Sinus rhythm with premature ventricular complexes in bigeminy pattern RBBB Marked T wave abnormality, consider inferolateral ischemia Abnormal ECG
[2018-11-06] MEDS ORDERED: cefTRIAXone 1 gm 1 GM/100 ML BAG IV ONE (21:00)
[2018-11-06] MEDS ORDERED: metroNIDAZOLE IV 500 mg/100 ml 500 MG/100 ML BAG IV ONE (21:00)
--- NOTE | 2018-11-07 00:05 | HP ---
DATE OF EXAM: 11/06/2018 HISTORY OF PRESENT ILLNESS: This is an 88-year-old male who is coming into the hospital with pain in his right inguinal area. The patient has a past medical history of pancreatic cancer with invasion into his liver. He has been on chemotherapy, coronary artery disease with stent, COPD, GERD. The patient has right inguinal hernia. He had presented to the emergency room 6 days ago and it was reduced and he was discharged home. He has been on stool softeners. He currently was feeling well and he had another episode overnight. The patient has been having persisting pain in the right groin all week. The patient also complains of diarrhea. He has been given chemotherapy from Dr. Pearson for his pancreatic cancer. His next dose of chemotherapy in 3 days. The patient had his hernia reduced. The patient also was complaining of right lower quadrant abdominal pain. The patient had a CAT scan that showed colitis and is being admitted to the hospital for further evaluation. He denies any fevers or chills. No nausea. No vomiting. No dysuria, frequency. He has been having diarrhea for the past 3 days. He has no dizziness. No dysarthria. No diplopia. ALLERGIES: NO KNOW DRUG ALLERGIES. PAST MEDICAL HISTORY: 1. Coronary artery disease. 2. COPD. 3. GERD. 4. Pancreatic adenocarcinoma. 5. Inguinal hernia. PAST SURGICAL HISTORY: Right Port-A-Cath placement, stent placement 2014, spinal surgery, appendectomy. SOCIAL HISTORY: He quit smoking about 20 years ago, but he used to smoker cigars. He quit cigars about 5 years ago, he did smoke for about 50 years. He has a history of drinking whisky, but quit earlier this year when started getting physical therapy. He denies drug use. FAMILY HISTORY: Noncontributory. REVIEW OF SYSTEMS: All other review of symptoms are within normal limits except as mentioned. PHYSICAL EXAMINATION" VITAL SIGNS: Temperature is 98.2, pulse 78, blood pressure 122/62, respirations 18, O2 saturation 98%, height 5 feet 3 inches, weight 150 pounds, BMI is 26.6. GENERAL: The patient lying in bed, uncomfortable, and in no acute distress. HEENT: Atraumatic and normocephalic. Anicteric sclerae. Moist mucosa. [place] conjunctivae. No oral lesions. NECK: No JVD, anterior and posterior adenopathy, thyromegaly, or bruits. CARDIOVASCULAR: S1 and S2 regular. No murmur, rubs, or gallop. LUNGS: Clear to auscultation bilaterally. No wheezes, rales, or rhonchi. ABDOMEN: Bowel sounds are positive. Soft, nontender and nondistended. No hepatosplenomegaly. No rebound and no guarding EXTREMITIES: No cyanosis, clubbing, or edema. NEUROLOGIC: No facial asymmetry. Tongue is midline. No vulva deviation. Power is 5/5 upper extremity and lower extremity. Sensation intact in upper extremity and lower extremity. PSYCHIATRIC: He is awake, alert and oriented x3. No anxiety or depression. He has normal affect. GENITOURINARY: No CVA tenderness. Right inguinal hernia reduced, mild bulge. VASCULAR: 2+ pulses in the carotid pulses and pedal pulses. SKIN: No erythema or nodules SPINE: Shows normal curvature. LABORATORY DATA: White count of 10.2, hemoglobin 10.1, platelet count 153, INR is 1.1. Chemistry showed sodium 128, potassium 4.3, creatinine 0.6, AST, ALT 25 and 40. Troponin 0.06. Lipase is 35. He has CT of the abdomen and pelvis p.o. and IV contrast and it showed pancolitis with hepatic metastasis. His chest x-ray done shows stable chronic prominence of the bilateral incisional markings, no focal consolidation. ASSESSMENT: 1. Colitis. 2. Hyponatremia. 3. Coronary artery disease. 4. Right Port-A-Cath. 5. Diarrhea. 6. Right inguinal hernia. 7. Chronic obstructive pulmonary disease. 8. Gastroesophageal reflux disease. 9. Anemia, chronic. PLAN: The patient is going to be admitted to the hospital. He has colitis. He is going to be started on Zosyn for antibiotic. I will get consultation with Dr. Pearson from Oncology for the pancreatic adenocarcinoma and also get Dr. Lemus for colitis. The patient was seen by surgery. No surgical intervention done at this time. The patient is going to be on liquid diet. I will place the patient on IV fluids. The patient has hyponatremia, so I will repeat the patient's blood work tomorrow including magnesium and phosphorous level. I will order Clostridium difficile to rule out infection. I did speak to the patient's family at the bedside. Kana Penaloza MD [facility] # [id number]
[2018-11-07 00:37] VITALS: RESP 20
[2018-11-07 04:26] LABS: URINE BILIRUBIN NEGATIVE (NEGATIVE); URINE BLOOD LARGE (NEGATIVE); URINE GLUCOSE (UA) NEGATIVE (NEGATIVE); URINE LEUKOCYTE ESTERASE NEGATIVE Leu/uL (NEGATIVE); URINE PROTEIN TRACE mg/dL (<30 mg/dL); URINE UROBILINOGEN 0.2 E.U./dL (<1 E.U./dL)
[2018-11-07 04:35] LABS: URINE APPEARANCE SL CLOUDY (CLEAR); URINE COLOR YELLOW (YELLOW)
[2018-11-07 04:41] LABS: URINE BACTERIA RARE /hpf; URINE EPITHELIAL CELLS 0 - 2 /hpf (0-5); URINE RBC 20 - 25 /hpf (0-2); URINE WBC 0 - 2 /hpf (0-6)
[2018-11-07] MEDS: metroNIDAZOLE IV 500 mg/100 ml 500 MG/100 ML BAG IV SCH ×3 (05:12→21:23)
[2018-11-07 07:05] LABS: HEMOGLOBIN 8.9 g/dL (14.0-18.0); MEAN CELL VOLUME 86.8 fl (80.0-105.0); MEAN CORPUSCULAR HEMOGLOBIN 27.9 pg (25.0-35.0); MEAN CORPUSCULAR HGB CONC 32.1 g/dl (31.0-37.0); MEAN PLATELET VOLUME 9.9 fl (7.0-11.0); RBC 3.19 10^6/uL (3.5-6.1); RED CELL DISTRIBUTION WIDTH 17.7 % (11.5-14.5); WHITE BLOOD COUNT 8.5 10^3/uL (4.5-11.0)
[2018-11-07 07:15] LABS: ALB/GLOB RATIO 1.2 (1.1-1.8); ALBUMIN 2.8 g/dL (3.0-4.8); ALT/SGPT 30 U/L (7-56); AST/SGOT 19 U/L (17-59); BLOOD UREA NITROGEN 8 mg/dL (7-21); GFR NON-AFRICAN AMERICAN > 60
[2018-11-07 07:20] LABS: TROPONIN I 0.08 ng/mL
--- NOTE | 2018-11-07 08:44 | CP.PCM.PN ---
Subjective - Date & Time of Evaluation Date of Evaluation: 11/07/18 Time of Evaluation: 07:44 - Subjective Subjective: PGY-1 Farrah Geronimo D.O. Surgery progress note for Dr. Cote (covering Dr. Verma): Patient was seen and examined this morning. He states his inguinal hernias are back out, but it does not bother him. He denies any pain. He is tolerating PO intake. His diarrhea has improved. He admits to one episode of hematuria yesterday but subsequently has not seen any blood in his urine. He denies recent use of urinary catheters. Denies fevers/chills. Denies abdominal pain, nausea, vomiting. Objective - Vital Signs/Intake and Output Vital Signs (last 24 hours): Temp Pulse Resp BP Pulse Ox 99.6 F 74 20 98/55 L 95 11/07/18 08:14 11/07/18 08:14 11/07/18 08:14 11/07/18 08:14 11/07/18 08:14 - Medications Medications: Current Medications Acetaminophen (Tylenol 325mg Tab) 650 mg PO Q6H PRN PRN Reason: Fever >100.4 F Last Admin: 11/06/18 22:00 Dose: 650 mg Aspirin (Ecotrin) 81 mg PO QAM [facility]RA Sodium Chloride (Sodium Chloride 0.9%) 1,000 mls @ 100 mls/hr IV .Q10H [facility] Stop: 11/07/18 11:59 Last Admin: 11/06/18 17:22 Dose: 100 mls/hr Metronidazole (Flagyl) 500 mg in 100 mls @ 100 mls/hr IV Q8 [facility]; Protocol Last Admin: 11/07/18 05:12 Dose: 100 mls/hr Ceftriaxone Sodium (Rocephin 1 Gram Ivpb) 1 gm in 100 mls @ 200 mls/hr IV DAILY [facility]; Protocol Metoprolol Tartrate (Lopressor) 25 mg PO Q12 [facility] Lipase/Protease/Amylase [Suamya Martinez 24 ,000 Units Capsule] 1 Cap (Home Med) 1 cap PO ACTID [facility] Last Admin: 11/06/18 17:23 Dose: Not Given - Labs Labs: 11/07/18 05:30 11/07/18 05:30 PT 12.8 SECONDS (9.4-12.5) H 11/06/18 09:25 INR 1.11 11/06/18 09:25 APTT 28.6 Seconds (25.1-36.5) 11/06/18 09:25 - Constitutional Appears: Non-toxic, No Acute Distress - Head Exam Head Exam: ATRAUMATIC, NORMAL INSPECTION - Eye Exam Eye Exam: EOMI, Normal appearance - ENT Exam ENT Exam: Mucous Membranes Moist - Neck Exam Neck Exam: Normal Inspection - Respiratory Exam Respiratory Exam: NORMAL BREATHING PATTERN. absent: Accessory Muscle Use, Respiratory Distress - Cardiovascular Exam Cardiovascular Exam: REGULAR RHYTHM - GI/Abdominal Exam GI & Abdominal Exam: Soft. absent: Distended, Tenderness - Exam Additional comments: b/l inguinal hernia- easily reducible, no overlying skin changes, nontender - Extremities Exam Extremities Exam: absent: Pedal Edema - Neurological Exam Neurological Exam: Alert, Awake, Oriented x3 - Psychiatric Exam Psychiatric exam: Normal Affect, Normal Mood - Skin Skin Exam: Dry, Intact, Normal Color, Warm Assessment and Plan - Assessment and Plan (Free Text) Assessment: 88M with pancolitis and bilateral inguinal hernias (chronic) Plan: - No surgical intervention- poor candidate (chemotherapy for pancreatic CA) and patient does not desire surgical repair at this time - PRN analgesics Case discussed with attending, Dr. Cote.
[2018-11-07] MEDS: cefTRIAXone 1 gm 1 GM/100 ML BAG IV SCH (09:09)
--- NOTE | 2018-11-07 10:25 | PN ---
DATE: 11/07/2018 SUBJECTIVE: The patient has no complaints of any chest pain or shortness of breath. He says that his abdominal pain is better. PHYSICAL EXAMINATION: VITAL SIGNS: Temperature is 99.6, pulse of 74, blood pressure 98/55, respirations 20. GENERAL: The patient is lying in bed, flat, comfortable. HEENT: No oral lesion. Anicteric sclerae. Moist mucosa. NECK: No JVD, adenopathy, or thyromegaly. CARDIOVASCULAR: S1 and S2, regular. No murmurs, rubs, or gallops. LUNGS: Clear to auscultation bilaterally. No wheeze, rales, or rhonchi. ABDOMEN: Bowel sounds are positive, soft, nontender and nondistended. EXTREMITIES: No cyanosis, clubbing or edema. LABS: White count of 8.5, hemoglobin 8.9, creatinine 0.6. Sodium is 128. ASSESSMENT: 1. Colitis, acute. 2. Hyponatremia. 3. Coronary artery disease. 4. Diarrhea. 5. Right Port-A-Cath. 6. Right inguinal hernia. 7. Chronic obstructive pulmonary disease. 8. Gastroesophageal reflux disease. 9. Anemia, chronic. PLAN: The patient is currently comfortable. He is on Flagyl for his antibiotics. He is on morphine for pain. He is on metoprolol for his coronary disease. He is on Rocephin for antibiotics. The patient is on Tylenol. He is getting IV fluids. His troponin is 0.08. He does not have any chest pain. Currently, he is feeling well. I will advance his diet to a regular diet. He is waiting to get physical therapy. Kana Penaloza MD
[2018-11-07] MEDS ORDERED: Darbepoetin Alfa 100 mcg/ml Inj SC ONE (11:46)
[2018-11-07] MEDS: Lactobacillus Acidophilus 500 MU Cap PO SCH ×2 (13:42→17:13)
[2018-11-07] MEDS: LIPASE PO SCH ×2 (13:43→17:14)
[2018-11-07] MEDS: PROTEASE PO SCH ×2 (13:43→17:14)
[2018-11-07] MEDS: AMYLASE PO SCH ×2 (13:43→17:14)
--- NOTE | 2018-11-07 17:49 | CON ---
DATE: 11/07/2018 GASTROENTEROLOGY CONSULTATION REQUESTING PHYSICIAN: Dr. Penaloza. REASON FOR CONSULTATION: I have been asked to see this 88-year-old male with known stage IV pancreatic cancer with liver metastasis on chemotherapy with last chemotherapy dose approximately 12 days ago, who comes to the hospital with 3 days of worsening diarrhea. The patient states that his chemotherapy usually gives some constipation. He had been taking Senokot and Colace. The patient also has a right inguinal hernia, which has been reducible. He complains of intermittent right groin pain when the hernia protrudes. He denies any fevers, chills, nausea or vomiting. He denies any recent travel. He denies the ingestion of any unusual foods. There is no one at home with a gastrointestinal illness. PAST MEDICAL HISTORY: Notable for stage IV pancreatic cancer, right inguinal hernia, coronary artery disease, COPD, gastroesophageal reflux disease. PAST SURGICAL HISTORY: Past surgical history is notable for appendectomy, spinal surgery and right Port-A-Cath placement. SOCIAL HISTORY: The patient is a former cigarette smoker, having quit 20 years ago. The patient consumed alcohol socially. FAMILY HISTORY: Noncontributory. REVIEW OF SYSTEMS: Fourteen-point review of systems is notable for diarrhea and right inguinal pain. MEDICATIONS: Medications at home include Incruse Ellipta, Creon 120,000, Breo Ellipta, Lipitor, and aspirin. PHYSICAL EXAMINATION: GENERAL: Elderly male, sitting in a chair, in no acute distress. VITAL SIGNS: Reveal a temperature of 99.6, blood pressure 98/55, heart rate 74. HEENT: Revealed sclerae to be white. Conjunctivae pale. NECK: Supple. CHEST: Revealed lungs to be clear. HEART: Exam reveals regular rate and rhythm. ABDOMEN: Softly distended. There are increased bowel sounds. He has a reducible right inguinal hernia. EXTREMITIES: Show no edema. He has a right Port-A-Cath. LABORATORY DATA: Revealed white blood cell count 8.5, hemoglobin 8.9, platelet count 158,000. Chemistries revealed sodium of 128. AST, ALT are normal. Alk phos is 128. CT scan of the abdomen and pelvis revealed a hypodense mass in the body and neck of the pancreas with multiple liver metastasis. There is also diffuse mural thickening of the colon with some mild pericolonic inflammatory changes. IMPRESSION: An 88-year-old male with stage IV pancreatic cancer with liver metastasis, status post chemotherapy approximately 12 days ago, now with increasing diarrhea. CT scan of the abdomen and pelvis reveals diffuse mural thickening with some mild pericolonic inflammatory changes. One must rule out an infectious etiology versus a viral gastroenteritis. RECOMMENDATIONS: 1. Check stool for C and S, O and P and C. difficile. 2. Continue IV fluid hydration. 3. Advance diet as tolerated. His long-term prognosis is extremely poor. Raymundo Sinclair MD [facility] # [id number]
--- NOTE | 2018-11-07 21:39 | CON ---
DATE: 11/07/2018 This is [facility] consult on the medical floor. For Dr. Pearson: CHIEF COMPLAINT: Diarrhea. 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 He is admitted via the emergency room for worsening diarrhea with his herniae reduced by surgical team earlier. Upon testing, he was noted to have to colitis for which he is now admitted for evaluation and treatment. He also has significant anemic indices which will also be treated. ALLERGIES: NO KNOWN ALLERGIES. PRESENT MEDICATIONS: Include Ecotrin, Flagyl, pancreas, Lopressor, Rocephin, piperacillin/tazobactam, Tylenol. PAST MEDICAL HISTORY: Significant for ASCVD, pancreatic cancer with invasion to liver on chemotherapy, stenting of his heart, GERD, bilateral inguinal herniae, anemic of chronic disease. FAMILY/SOCIAL HISTORY: Quit smoking 20 years ago. Smoked for about 50 years prior to this. Quit alcohol years ago. Daughter and son at the bedside, otherwise noncontributory. REVIEW OF SYSTEMS: A 12-point review of systems was done which is negative to questions except for items mentioned in history of present illness. OBJECTIVE/PHYSICAL EXAMINATION VITAL SIGNS: Temperature 99.6 with 100.8 noted yesterday, pulse 74, respirations 20, blood pressure 98/55, pulse oximetry 95%. HEENT: Unremarkable. NECK: Supple. HEART: Regular rate. LUNGS: Clear. ABDOMEN: Minimal generalized tenderness with herniae noted bilaterally. EXTREMITIES: No edema. SKIN: Warm and dry. NEUROLOGIC: Awake and alert. LABORATORY DATA: The patient's labs were done. White blood cell count 8.5 today with hemoglobin 8.9, hematocrit 27.7 with a platelet count of 158,000, INR of 1.1. Metabolic panel showing sodium of 128, chloride of 97, calcium 8, alk phos of 128. Urine showing large amount of blood. The patient had a chest x-ray on admission, it was read as stable chronic prominence of the bilateral interstitial markings, no consolidation or pleural effusion. EKG was done yesterday, was read as sinus rhythm with premature ventricular complexes, bigeminy pattern, RBBB, marked T-wave abnormality, consider for lateral ischemia, abnormal EKG. CAT scan of the abdomen and pelvis was done yesterday, was read as with oral and IV contrast; the impression was pancolitis, likely infectious, inflammatory in etiology, re-demonstration of pancreatic neck body mass and hepatic metastasis. ASSESSMENT: For this patient is that of acute colitis, hyponatremia, pancreatic cancer with liver metastasis undergoing treatment, bilateral inguinal herniae, diarrhea, rule out Clostridium difficile, chronic obstructive pulmonary disease, gastroesophageal reflux disease, anemia of chronic disease. PLAN: For this patient in conversation with Dr. Pearson, continue present medical regimen as per Dr. Penaloza . We will add lactobacillus as per the family request with Venofer to be given and also dose of Aranesp. We will monitor clinically with labs. We will continue antibiotics and await for consult with Dr. 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 Also for his hematuria, we will repeat his urinalysis. This is a complex patient with a comprehensive medically necessary and appropriate visit carried out in excess of 40 minutes with the patient's questions answered to his satisfaction. Ruperto Tatum MD
[2018-11-08] MEDS: metroNIDAZOLE IV 500 mg/100 ml 500 MG/100 ML BAG IV SCH ×2 (05:01→15:34)
[2018-11-08 06:56] VITALS: BP 116/74; PULSE 85; TEMP 98.2; O2SAT 100
[2018-11-08 07:03] LABS: BASO # 0.02 K/mm3 (0.0-2.0); BASO % 0.5 % (0.0-3.0); GRAN # 2.59 (1.4-6.5); GRAN % 62.5 % (50.0-68.0); HEMOGLOBIN 8.9 g/dL (14.0-18.0); LYMPH # 0.9 (1.2-3.4); LYMPH % 22.7 % (22.0-35.0); MEAN CELL VOLUME 85.2 fl (80.0-105.0); MEAN CORPUSCULAR HGB CONC 32.8 g/dl (31.0-37.0); MEAN PLATELET VOLUME 9.3 fl (7.0-11.0); MONO # 0.6 (0.1-0.6); MONO % 13.3 % (1.0-6.0); RBC 3.18 10^6/uL (3.5-6.1); RED CELL DISTRIBUTION WIDTH 17.3 % (11.5-14.5); WHITE BLOOD COUNT 4.1 10^3/uL (4.5-11.0)
[2018-11-08 07:20] LABS: ALB/GLOB RATIO 1.1 (1.1-1.8); ALBUMIN 2.8 g/dL (3.0-4.8); ALT/SGPT 31 U/L (7-56); AST/SGOT 18 U/L (17-59); BLOOD UREA NITROGEN 10 mg/dL (7-21); GFR NON-AFRICAN AMERICAN > 60
[2018-11-08] MEDS: Lactobacillus Acidophilus 500 MU Cap PO SCH (09:04)
[2018-11-08] MEDS: PROTEASE PO SCH ×2 (09:05→13:21)
[2018-11-08] MEDS: LIPASE PO SCH ×2 (09:05→13:21)
[2018-11-08] MEDS: AMYLASE PO SCH ×2 (09:05→13:21)
[2018-11-08] MEDS: cefTRIAXone 1 gm 1 GM/100 ML BAG IV SCH (09:06)
--- NOTE | 2018-11-08 13:52 | DS ---
HISTORY OF PRESENT ILLNESS: This is an 88-year-old male, who is coming into the hospital and was found to have acute colitis. The patient was started on IV fluids and antibiotics, he had improvement of his symptoms. He was seen by GI Surgery and Oncology. The patient is feeling better, he is tolerating his diet. He is cleared by GI, we will discharge the patient home today. He is eager to go come because he would like to come to see his Oncologist, Dr. Pearson for possible chemotherapy during this week. He has no headaches or dizziness. No nausea. No vomiting. PHYSICAL EXAMINATION: VITAL SIGNS: Temperature is 98.2, pulse of 85, blood pressure is 116/74, respirations 20. GENERAL: The patient is lying in bed, flat, comfortable. HEENT: No oral lesion. Anicteric sclerae. Moist mucosa. NECK: No JVD, adenopathy, or thyromegaly. CARDIOVASCULAR: S1 and S2, regular. No murmurs, rubs, or gallops. LUNGS: Clear to auscultation bilaterally. No wheeze, rales, or rhonchi. ABDOMEN: Bowel sounds are positive, soft, nontender and nondistended. EXTREMITIES: no cyanosis, clubbing or edema. LABS: White count of 4.1, hemoglobin 8.9, sodium is 129, creatinine is 0.6. ASSESSMENT: 1. Acute colitis. 2. Hyponatremia. 3. Coronary artery disease. 4. Diarrhea. 5. Right Port-A-Cath. 6. Right inguinal hernia. 7. Chronic obstructive pulmonary disease. 8. Gastroesophageal reflux disease. 9. Anemia, chronic. PLAN: The patient is currently comfortable. He is going to continue with aspirin. He is on iron because of iron deficiency. He is on metoprolol. He is going to continue with Rocephin and Flagyl. He is on Tylenol as needed. CONDITION: Stable. ACTIVITY: 1. Increased as tolerated. Discharged home. Follow if symptoms recur. Followup with Dr. Chakraborty in 1 to 2 weeks. [address] Pearson within 1 week. DISCHARGE MEDICATIONS: 1. Augmentin 875 mg b.i.d. 2. Flagyl 500 mg every 8 hours. Kana Penaloza MD [facility] # [id number]
== END 2018-11-08 15:36 | disposition home or self-care (01) | DRG 392 ==
LOC: ED 08:49 → ERH 14:03 → 3RNO 20:29
PROVIDERS: ADMIT Internal Medicine Nephrology; ATTEND Internal Medicine Nephrology
DX: A09 Infectious gastroenteritis and colitis, unspecified (principal); C25.9 Malignant neoplasm of pancreas, unspecified; C78.7 Secondary malignant neoplasm of liver and intrahepatic bile duct; E87.1 Hypo-osmolality and hyponatremia; I10 Essential (primary) hypertension; I25.10 Atherosclerotic heart disease of native coronary artery without angina pectoris; J44.9 Chronic obstructive pulmonary disease, unspecified; K21.9 Gastro-esophageal reflux disease without esophagitis; K40.20 Bilateral inguinal hernia, without obstruction or gangrene, not specified as recurrent; K59.00 Constipation, unspecified; D63.8 Anemia in other chronic diseases classified elsewhere; I45.10 Unspecified right bundle-branch block; Z79.82 Long term (current) use of aspirin; Z87.891 Personal history of nicotine dependence; Z92.21 Personal history of antineoplastic chemotherapy; Z95.5 Presence of coronary angioplasty implant and graft

== ENCOUNTER 2018-11-09 13:09 | Outpatient (CLI) | payer MEDICARE, BC | END 2018-11-09 13:10 | disposition home or self-care (01) | LOC: OPLAB 13:09 ==

== ENCOUNTER 2018-11-11 13:21 | Outpatient (CLI) | payer MEDICARE, BC | END 2018-11-11 13:22 | disposition home or self-care (01) | LOC: OPLAB 13:21 ==

== ENCOUNTER 2018-11-14 14:59 | Outpatient (CLI) | payer MEDICARE, BC | END 2018-11-14 15:00 | disposition home or self-care (01) | LOC: RAD 15:00 ==

== ENCOUNTER 2018-11-16 11:48 | Outpatient (CLI) | payer MEDICARE, BC | END 2018-11-16 11:49 | disposition home or self-care (01) | LOC: OPLAB 11:48 | DX: D64.9 Anemia, unspecified (principal); E78.5 Hyperlipidemia, unspecified; E83.40 Disorders of magnesium metabolism, unspecified; M81.0 Age-related osteoporosis without current pathological fracture ==

== ENCOUNTER 2018-11-17 12:37 | Outpatient (CLI) | payer MEDICARE, BC | END 2018-11-17 12:38 | disposition home or self-care (01) | LOC: OPLAB 12:37 ==

== ENCOUNTER 2018-11-30 12:07 | Outpatient (CLI) | payer MEDICARE, BC | END 2018-11-30 12:08 | disposition home or self-care (01) | LOC: OPLAB 12:07 ==

== ENCOUNTER 2018-12-01 11:26 | Outpatient (CLI) | payer MEDICARE, BC | END 2018-12-01 11:27 | disposition home or self-care (01) | LOC: OPLAB 11:26 ==

== ENCOUNTER 2018-12-14 11:49 | Outpatient (CLI) | payer MEDICARE, BC | END 2018-12-14 11:50 | disposition home or self-care (01) | LOC: OPLAB 11:49 ==

== ENCOUNTER 2018-12-15 11:12 | Outpatient (CLI) | payer MEDICARE, BC | END 2018-12-15 11:13 | disposition home or self-care (01) | LOC: OPLAB 11:12 ==

== ENCOUNTER 2018-12-28 12:26 | Outpatient (CLI) | payer MEDICARE, BC | END 2018-12-28 12:27 | disposition home or self-care (01) | LOC: OPLAB 12:26 ==

== ENCOUNTER 2018-12-29 12:09 | Outpatient (CLI) | payer MEDICARE, BC | END 2018-12-29 12:10 | disposition home or self-care (01) | LOC: OPLAB 12:09 ==

== ENCOUNTER 2019-01-03 13:37 | Outpatient (CLI) | payer MEDICARE, BC | END 2019-01-03 13:38 | disposition home or self-care (01) | LOC: OPLAB 13:37 ==

== ENCOUNTER 2019-01-06 21:55 | Emergency (ER) | payer MEDICARE, BC ==
[2019-01-06 22:09] VITALS: BMI 25.8
[2019-01-06 22:11] VITALS: RESP 18
[2019-01-06 22:37] VITALS: TEMP 98.2
--- NOTE | 2019-01-06 22:40 | ED PDOC ---
Arrival/HPI - General Chief Complaint: Male Genitourinary Time Seen by Provider: 01/06/19 22:02 Historian: Patient, Family - History of Present Illness Narrative History of Present Illness (Text): 01/06/19 22:28 Raymundo Godoy is an 88 year old male, whose past medical history includes pancreatic cancer and bilateral inguinal hernias (non-painful), who presents to the Emergency department complaining of burning on urination. Patient denies any history of fever. Patient states he is only urinating small amounts at at time. Patient also denies any fever, chills, back pain, abdominal pain, nausea, vomiting, or diarrhea, however family note patient did have a slight bout of diarrhea earlier in the week. Symptom Onset: Gradual Symptom Course: Unchanged Activities at Onset: Light Context: Home Past Medical History - Provider Review Nursing Documentation Reviewed: Yes - Infectious Disease Hx of Infectious Diseases: None - Cardiac Hx Hypertension: Yes Hx Pacemaker: No - Pulmonary Hx Chronic Obstructive Pulmonary Disease (COPD): Yes - Neurological Hx Paralysis: No - Hematological/Oncological Hx Blood Transfusions: No Hx Blood Transfusion Reaction: No Hx Cancer: Yes (Pancreatic) - Musculoskeletal/Rheumatological Hx Musculoskeletal Disorders: Yes - Gastrointestinal Other/Comment: Pancreatic cancer - Psychiatric Hx Emotional Abuse: No Hx Physical Abuse: No Hx Substance Use: No - Surgical History Other/Comment: Port-a-cath - Anesthesia Hx Anesthesia Reactions: No Hx Malignant Hyperthermia: No - Suicidal Assessment Feels Threatened In Home Enviroment: No Family/Social History - Physician Review Nursing Documentation Reviewed: Yes Family/Social History: Unknown Family HX Smoking Status: Former Smoker Hx Alcohol Use: Yes (FEW GLASSES WINE/NIGHT; STOPPED FEW WEEKS AGO) Hx Substance Use: No Allergies/Home Meds Allergies/Adverse Reactions: Allergies No Known Allergies Allergy (Verified 11/06/18 09:10) Home Medications: Home Meds Medication Instructions Recorded Confirmed Aspirin [Adult Low Dose Aspirin EC] 81 mg PO [facility] 05/18/18 01/06/19 Atorvastatin [Lipitor] 20 mg PO [facility] 05/18/18 01/06/19 Fluticasone/Vilanterol [Breo 1 pow [facility] 05/18/18 01/06/19 Ellipta 100-25 Mcg INH] Umeclidinium [place] [Incruse 62.5 mcg IH [facility] 05/18/18 01/06/19 Ellipta] Lipase/Protease/Amylase [Saumya Hernandez cap PO ACTID 06/14/18 01/06/19 24,000 Units Capsule] Review of Systems - Physician Review All systems were reviewed & negative as marked: Yes - Review of Systems Constitutional: Normal. absent: Fevers Eyes: Normal ENT: Normal Respiratory: Normal. absent: SOB, Cough Cardiovascular: Normal. absent: Chest Pain Gastrointestinal: absent: Abdominal Pain, Nausea, Vomiting Genitourinary Male: Dysuria Musculoskeletal: Normal. absent: Back Pain, Neck Pain Skin: Normal. absent: Rash Neurological: Normal. absent: Headache, Dizziness Endocrine: Normal Hemo/Lymphatic: Normal Psychiatric: Normal Physical Exam Vital Signs Reviewed: Yes Vital Signs Pulse Resp BP Pulse Ox 01/06/19 22:10 90 18 122/66 99 Temperature: Afebrile Blood Pressure: Normal Pulse: Regular Respiratory Rate: Normal Appearance: Positive for: Well-Appearing, Non-Toxic, Comfortable Pain Distress: None Mental Status: Positive for: Alert and Oriented X 3 - Systems Exam Head: Present: Atraumatic, Normocephalic Pupils: Present: PERRL Extroacular Muscles: Present: EOMI Conjunctiva: Present: Normal Mouth: Present: Moist Mucous Membranes Neck: Present: Normal Range of Motion Respiratory/Chest: Present: Clear to Auscultation, Good Air Exchange. No: Respiratory Distress, Accessory Muscle Use Cardiovascular: Present: Regular Rate and Rhythm, Normal S1, S2. No: Murmurs Abdomen: No: Tenderness, Distention, Peritoneal Signs Genitourinary Male: Present: Hernias (Bilateral inguinal hernias, non-tender, reducible), Other (Testes descended bilaterally) Back: Present: Normal Inspection Upper Extremity: Present: Normal Inspection. No: Cyanosis, Edema Lower Extremity: Present: Normal Inspection. No: Edema Neurological: Present: GCS=15, CN II-XII Intact, Speech Normal Skin: Present: Warm, Dry, Normal Color. No: Rashes Psychiatric: Present: Alert, Oriented x 3, Normal Insight, Normal Concentration Medical Decision Making ED Course and Treatment: 01/06/19 22:28 Impression: 88 year old male complaining of burning on urination. Plan: -- Urinalysis, urine cultures -- Reassess and disposition Prior Visits: Notes and results from previous visits were reviewed. Progress Notes: 01/07/19 01:41 Case discussed with who is aware and agrees with plan. - Scribe Statement The provider has reviewed the documentation as recorded by the Sharlene Olivera Provider Scribe Attestation: All medical record entries made by the Scribe were at my direction and personally dictated by me. I have reviewed the chart and agree that the record accurately reflects my personal performance of the history, physical exam, medical decision making, and the department course for this patient. I have also personally directed, reviewed, and agree with the discharge instructions and disposition. Disposition/Present on Arrival - Present on Arrival Any Indicators Present on Arrival: No History of DVT/PE: No History of Uncontrolled Diabetes: No Urinary Catheter: No History of Decub. Ulcer: No History Surgical Site Infection Following: None - Disposition Have Diagnosis and Disposition been Completed?: Yes Diagnosis: UTI (urinary tract infection) Disposition: HOME/ ROUTINE Disposition Time: 01:46 Patient Plan: Discharge Condition: GOOD Discharge Instructions (ExitCare): Urinary Tract Infection, Adult (DC) Additional Instructions: Take meds as prescribed/follow up with your doctor this week/any worsening symptoms(fever/chills,ecc.)return to the emergency room Prescriptions: Cephalexin [cephalexin] 500 mg PO BID #14 cap Phenazopyridine [Pyridium] 200 mg PO TID #15 tab Referrals: FAMILY PROVIDER,NO [Non-Staff] - Follow up with primary Forms: [employer] ([place]orese)
[2019-01-06 23:00] LABS: URINE BILIRUBIN SMALL (NEGATIVE); URINE BLOOD LARGE (NEGATIVE); URINE GLUCOSE (UA) 100 mg/dL (NEGATIVE); URINE LEUKOCYTE ESTERASE MODERATE Leu/uL (NEGATIVE); URINE PROTEIN 100 mg/dL (<30 mg/dL)
[2019-01-06 23:50] LABS: URINE APPEARANCE CLEAR (CLEAR); URINE COLOR YELLOW (YELLOW)
[2019-01-07 00:17] LABS: URINE BACTERIA MANY /hpf; URINE RBC TNTC /hpf (0-2); URINE WBC TNTC /hpf (0-6)
[2019-01-07] MEDS ORDERED: cefTRIAXone 1 gm 1 GM/100 ML BAG IV STA (00:46)
[2019-01-07 01:13] LABS: MEAN CELL VOLUME 84.5 fl (80.0-105.0); MEAN CORPUSCULAR HEMOGLOBIN 26.7 pg (25.0-35.0); MEAN CORPUSCULAR HGB CONC 31.5 g/dl (31.0-37.0); MEAN PLATELET VOLUME 9.9 fl (7.0-11.0); RBC 3.75 10^6/uL (3.5-6.1); RED CELL DISTRIBUTION WIDTH 18.5 % (11.5-14.5); WHITE BLOOD COUNT 6.8 10^3/uL (4.5-11.0)
[2019-01-07 01:18] LABS: BLOOD UREA NITROGEN 13 mg/dL (7-21); CALCIUM 8.9 mg/dL (8.4-10.5); GFR NON-AFRICAN AMERICAN > 60
[2019-01-07 03:04] VITALS: BP 121/85; PULSE 85; O2SAT 100
== END 2019-01-07 02:15 | disposition home or self-care (01) ==
LOC: ED 21:55
DX: N39.0 Urinary tract infection, site not specified (principal); I10 Essential (primary) hypertension; Z85.07 Personal history of malignant neoplasm of pancreas; Z87.891 Personal history of nicotine dependence
CPT/HCPCS: 80048; 81001; 85027; 87086; 87181; 96374; 99284; J0696

== ENCOUNTER 2019-01-11 05:19 | Outpatient (CLI) | payer MEDICARE, BC | END 2019-01-11 05:20 | disposition home or self-care (01) | LOC: PET-BROA 05:19 ==

== ENCOUNTER 2019-01-23 17:35 | Outpatient (CLI) | payer MEDICARE, BC | END 2019-01-23 17:36 | disposition home or self-care (01) | LOC: OPLAB 17:35 ==

== ENCOUNTER 2019-01-25 12:43 | Outpatient (CLI) | payer MEDICARE, BC | END 2019-01-25 12:44 | disposition home or self-care (01) | LOC: OPLAB 12:43 ==

== ENCOUNTER 2019-01-26 13:55 | Outpatient (CLI) | payer MEDICARE, BC | END 2019-01-26 13:56 | disposition home or self-care (01) | LOC: OPLAB 13:55 | DX: D64.9 Anemia, unspecified (principal); E78.5 Hyperlipidemia, unspecified; E83.40 Disorders of magnesium metabolism, unspecified; M81.0 Age-related osteoporosis without current pathological fracture ==

== ENCOUNTER 2019-01-30 13:25 | Outpatient (CLI) | payer MEDICARE, BC | END 2019-01-30 13:26 | disposition home or self-care (01) | LOC: OPLAB 13:25 ==

== ENCOUNTER 2019-02-01 13:25 | Outpatient (CLI) | payer MEDICARE, BC | END 2019-02-01 13:26 | disposition home or self-care (01) | LOC: OPLAB 13:25 ==

== ENCOUNTER 2019-02-08 14:54 | Outpatient (CLI) | payer MEDICARE, BC | END 2019-02-08 14:55 | disposition home or self-care (01) | LOC: OPLAB 14:54 ==

== ENCOUNTER 2019-02-13 13:02 | Outpatient (CLI) | payer MEDICARE, BC | END 2019-02-13 13:03 | disposition home or self-care (01) | LOC: OPLAB 13:02 ==

== ENCOUNTER → 2019-02-14 | Outpatient (CLI) | payer MEDICARE, BC | LOC: OPLAB 14:11 ==

== ENCOUNTER → 2019-02-15 | Outpatient (CLI) | payer MEDICARE, BC | LOC: OPLAB 13:30 ==

== ENCOUNTER 2019-02-20 13:48 | Outpatient (CLI) | payer MEDICARE, BC | END 2019-02-20 13:49 | disposition home or self-care (01) | LOC: OPLAB 13:48 ==

== ENCOUNTER 2019-02-21 13:06 | Outpatient (CLI) | payer MEDICARE, BC | END 2019-02-21 13:07 | disposition home or self-care (01) | LOC: OPLAB 13:06 ==

== ENCOUNTER 2019-02-22 09:59 | Outpatient (CLI) | payer MEDICARE, BC | END 2019-02-22 10:00 | disposition home or self-care (01) | LOC: RAD 09:59 ==

== ENCOUNTER 2019-02-22 13:17 | Outpatient (CLI) | payer MEDICARE, BC | END 2019-02-22 13:18 | disposition home or self-care (01) | LOC: OPLAB 13:17 ==

== ENCOUNTER 2019-02-23 12:43 | Outpatient (CLI) | payer MEDICARE, BC | END 2019-02-23 12:44 | disposition home or self-care (01) | LOC: OPLAB 12:43 ==

== ENCOUNTER 2019-02-27 13:55 | Outpatient (CLI) | payer MEDICARE, BC | END 2019-02-27 13:56 | disposition home or self-care (01) | LOC: OPLAB 13:55 ==

== ENCOUNTER 2019-02-27 16:25 | Emergency (ER) | payer MEDICARE, BC ==
[2019-02-27 16:43] VITALS: RESP 19; TEMP 98; O2SAT 96; BMI 27.3
[2019-02-27] MEDS ORDERED: Sodium Chloride 0.9% 1,000 ML IV STA (16:44)
--- NOTE | 2019-02-27 17:19 | ED PDOC ---
Arrival/HPI - General Chief Complaint: GI Problem Time Seen by Provider: 02/27/19 16:30 Historian: Family (daughter ) - History of Present Illness Narrative History of Present Illness (Text): 02/27/19 17:19 88 year old M with pmh of pancreatic cancer and bilateral inguinal hernias (non- painful) presents for evaluation of abdominal bloating x 2weeks. Per daughter, patient was advised by Dr. Pearson to have an inpatient Fleet Enema given. Patient recent abdominal X Ray showed residual stool in colon. Patient denies any fevers, chills, headache, dizziness, chest pain, shortness of breath, dyspnea on exertion, cough, diaphoresis, abdominal pain, nausea, vomiting, diarrhea, back pain, neck pain, or any other complaint. PCP: Dr. Oates Specialist: Dr. Pearson(oncology) Time/Duration: Prior to Arrival Symptom Onset: Sudden Symptom Course: Unchanged Activities at Onset: Light Context: Home Past Medical History - Provider Review Nursing Documentation Reviewed: Yes - Infectious Disease Hx of Infectious Diseases: None - Cardiac Hx Hypertension: Yes Hx Pacemaker: No - Pulmonary Hx Chronic Obstructive Pulmonary Disease (COPD): Yes - Neurological Hx Paralysis: No - Hematological/Oncological Hx Blood Transfusions: No Hx Blood Transfusion Reaction: No Hx Cancer: Yes (Pancreatic) - Musculoskeletal/Rheumatological Hx Musculoskeletal Disorders: Yes - Gastrointestinal Other/Comment: Pancreatic cancer - Psychiatric Hx Emotional Abuse: No Hx Physical Abuse: No Hx Substance Use: No - Surgical History Other/Comment: Port-a-cath - Anesthesia Hx Anesthesia: Yes Hx Anesthesia Reactions: No Hx Malignant Hyperthermia: No - Suicidal Assessment Feels Threatened In Home Enviroment: No Family/Social History - Physician Review Nursing Documentation Reviewed: Yes Family/Social History: Unknown Family HX Smoking Status: Former Smoker Hx Alcohol Use: Yes (FEW GLASSES WINE/NIGHT; STOPPED FEW WEEKS AGO) Hx Substance Use: No Allergies/Home Meds Allergies/Adverse Reactions: Allergies No Known Allergies Allergy (Verified 11/06/18 09:10) Home Medications: Home Meds Medication Instructions Recorded Confirmed Aspirin [Adult Low Dose Aspirin EC] 81 mg PO QAM 05/18/18 01/06/19 Atorvastatin [Lipitor] 20 mg PO QAM 05/18/18 01/06/19 Fluticasone/Vilanterol [Breo 1 pow IH QAM 05/18/18 01/06/19 Ellipta 100-25 Mcg INH] Umeclidinium [place] [Incruse 62.5 mcg IH QAM 05/18/18 01/06/19 Ellipta] Lipase/Protease/Amylase [Saumya Hernandez cap PO ACTID 06/14/18 01/06/19 24,000 Units Capsule] Review of Systems - Physician Review All systems were reviewed & negative as marked: Yes - Review of Systems Constitutional: absent: Fevers ENT: absent: Rhinorrhea Respiratory: absent: SOB, Cough Cardiovascular: absent: Chest Pain Gastrointestinal: absent: Abdominal Pain, Constipation, Diarrhea, Nausea, Vomiting Musculoskeletal: absent: Arthralgias, Back Pain, Neck Pain, Myalgias Skin: absent: Rash Neurological: absent: Headache, Dizziness Physical Exam Vital Signs Reviewed: Yes Vital Signs Temp Pulse Resp BP Pulse Ox 02/27/19 16:36 98 F 100 H 19 129/74 96 Temperature: Afebrile Blood Pressure: Normal Pulse: Tachycardic Respiratory Rate: Normal Appearance: Positive for: Well-Appearing, Non-Toxic, Comfortable Pain Distress: None Mental Status: Positive for: Alert and Oriented X 3 - Systems Exam Head: Present: Atraumatic, Normocephalic Pupils: Present: PERRL Extroacular Muscles: Present: EOMI Conjunctiva: Present: Normal Mouth: Present: Moist Mucous Membranes Neck: Present: Normal Range of Motion Respiratory/Chest: Present: Clear to Auscultation, Good Air Exchange. No: Respiratory Distress, Accessory Muscle Use Cardiovascular: Present: Regular Rate and Rhythm, Normal S1, S2, Tachycardic. No: Murmurs Abdomen: No: Tenderness, Distention, Peritoneal Signs Back: Present: Normal Inspection Upper Extremity: Present: Normal Inspection. No: Cyanosis, Edema Lower Extremity: Present: Normal Inspection. No: Edema Neurological: Present: GCS=15, CN II-XII Intact, Speech Normal Skin: Present: Warm, Dry, Normal Color. No: Rashes Psychiatric: Present: Alert, Oriented x 3, Normal Insight, Normal Concentration Medical Decision Making ED Course and Treatment: 02/27/19 17:23 Impression: 88 year old presents for evaluation of abdominal bloating x 2weeks. Per daughter, patient was advised by Dr. Pearson to have an inpatient Fleet Enema given. Patient recent abdominal X Ray showed residual stool in colon. Plan: -- Fleet Enema -- Reassess and disposition Prior Visits: Notes and results from previous visits were reviewed. Progress Notes: - Medication Orders Current Medication Orders: Discontinued Medications Sodium Phosphate (Fleet Enema) 135 ml RC STAT STA Stop: 02/27/19 17:11 - Scribe Statement The provider has reviewed the documentation as recorded by the Scribe Laura Richards All medical record entries made by the Scribe were at my direction and personally dictated by me. I have reviewed the chart and agree that the record accurately reflects my personal performance of the history, physical exam, medical decision making, and the department course for this patient. I have also personally directed, reviewed, and agree with the discharge instructions and disposition. Disposition/Present on Arrival - Present on Arrival Any Indicators Present on Arrival: No History of DVT/PE: No History of Uncontrolled Diabetes: No Urinary Catheter: No History of Decub. Ulcer: No History Surgical Site Infection Following: None - Disposition Have Diagnosis and Disposition been Completed?: Yes Diagnosis: Constipation Disposition: HOME/ ROUTINE Disposition Time: 19:55 Patient Plan: Discharge Condition: IMPROVED Discharge Instructions (ExitCare): Constipation, Adult (DC) Print Language: DANISH Additional Instructions: All medical record entries made by the Scribe were at my direction and personally dictated by me. I have reviewed the chart and agree that the record accurately reflects my personal performance of the history, physical exam, medical decision making, and the department course for this patient. I have also personally directed, reviewed, and agree with the discharge instructions and disposition. Please follow up with Dr. Pearson in 1 week Please use enema only ONCE a day Prescriptions: Sod Phos,M-B/Na Phos,Di-Ba [Enema 7 gm/118 ml-19 gm/118 ml 133 ml] 133 ml RC ONCE #2 nma Referrals: Katy Pearson MD [Staff Provider] - Follow up with primary Forms: [employer] (Sammarinese)
[2019-02-27 20:05] VITALS: BP 106/59; PULSE 98
== END 2019-02-27 20:04 | disposition home or self-care (01) ==
LOC: ED 16:25
DX: K59.00 Constipation, unspecified (principal); I10 Essential (primary) hypertension; J44.9 Chronic obstructive pulmonary disease, unspecified; Z85.07 Personal history of malignant neoplasm of pancreas; Z87.891 Personal history of nicotine dependence

== ENCOUNTER 2019-03-02 11:13 | Outpatient (CLI) | payer MEDICARE, BC | END 2019-03-02 11:14 | disposition home or self-care (01) | LOC: RAD 11:14 | DX: C25.9 Malignant neoplasm of pancreas, unspecified (principal); R18.8 Other ascites ==

== ENCOUNTER 2019-03-02 12:33 | Outpatient (CLI) | payer MEDICARE, BC | END 2019-03-02 12:34 | disposition home or self-care (01) | LOC: OPLAB 12:33 ==

== ENCOUNTER → 2019-03-03 | Day surgery (SDC) | payer MEDICARE, BC ==
[2019-03-02 15:38] VITALS: BMI 28.4
[~2019-03-03] MED LIST: Lidocaine PF 2% (5 ml) Inj (For Cardiac Arrhy) ONE; Midazolam 2 MG/2 ML VIAL ONE; Oxycodone/Acetaminophen 5/325 mg Tab PO PRN; Sodium Chloride 0.45% 1,000 ML IV SCH
[2019-03-03 12:30] LABS: EOS % 0.1 % (1.5-5.0); HEMOGLOBIN 9.5 g/dL (14.0-18.0); LYMPH % 14.9 % (22.0-35.0); MEAN CELL VOLUME 86.1 fl (80.0-105.0); MEAN CORPUSCULAR HEMOGLOBIN 26.9 pg (25.0-35.0); MEAN CORPUSCULAR HGB CONC 31.3 g/dl (31.0-37.0); MEAN PLATELET VOLUME 8.9 fl (7.0-11.0); MONO # 0.7 (0.1-0.6); MONO % 10.1 % (1.0-6.0); RBC 3.53 10^6/uL (3.5-6.1); RED CELL DISTRIBUTION WIDTH 19.8 % (11.5-14.5)
[2019-03-03 12:37] LABS: BLOOD UREA NITROGEN 14 mg/dL (7-21); GFR NON-AFRICAN AMERICAN > 60
[2019-03-03 12:38] LABS: INR 1.12; PROTHROMBIN TIME 12.6 SECONDS (9.4-12.5)
[2019-03-03 14:57] VITALS: BP 124/71; PULSE 85; RESP 20; TEMP 97; O2SAT 95
--- NOTE | 2019-03-03 15:14 | VASCULAR ---
Date of service: 03/03/2019 PROCEDURE: Ultrasound fluoroscopically placed tunneled peritoneal catheter HISTORY: Stage IV pancreatic CA. Recurrent ascites with abdominal pain and distension. COMPARISON: TECHNIQUE: The relative risks and indications of the procedure explained the patient's family consent obtained. The patient was placed supine on the arteriography table and preliminary sonography abdomen performed. This revealed a moderate amount of non loculated ascites. A catheter placement site in the right lower quadrant was selected the area prepped and draped usual sterile fashion. Conscious sedation monitoring were provided throughout the procedure by a nurse. 1 percent xylocaine was used to anesthetize the skin soft tissues. An 18 gauge needle was advanced into the peritoneum in clear straw-colored fluid aspirated. A 0.035 glidewire was advanced posteriorly and superiorly. The peel-away sheath was placed. Next the 15.5 [place] Aspira catheter was advanced over the guidewire. The catheter was tunneled in the right lower quadrant. The abdomen was drained. 4200 cc of clear straw-colored fluid was removed. FINDINGS: IMPRESSION: Ultrasound fluoroscopically placed peritoneal tunneled catheter 4200 cc of clear straw-colored fluid was aspirated. Initially, the patient should be drained once a week, up to 1200 cc of fluid can be removed. The frequency and amount of drainages can be adjusted according to the patient's abdominal distention
== END | disposition home or self-care (01) ==
LOC: SDS 11:49
PROVIDERS: ATTEND Radiology Vascular & Interventional Radiology
DX: C25.9 Malignant neoplasm of pancreas, unspecified (principal); R18.8 Other ascites; I25.10 Atherosclerotic heart disease of native coronary artery without angina pectoris; Z87.891 Personal history of nicotine dependence
CPT/HCPCS: 36415; 49418; 80048; 85025; 85610; 85730; 99152; C1729; C1769; J1644; J2250; J2405; J3010; J7030

== ENCOUNTER 2019-03-06 13:35 | Outpatient (CLI) | payer MEDICARE, BC | END 2019-03-06 13:36 | disposition home or self-care (01) | LOC: OPLAB 13:35 ==

== ENCOUNTER 2019-03-13 14:53 | Outpatient (CLI) | payer MEDICARE, BC | END 2019-03-13 14:54 | disposition home or self-care (01) | LOC: OPLAB 14:53 ==

== ENCOUNTER 2019-03-18 03:03 | Emergency (ER) | payer MEDICARE, BC ==
[2019-03-18 03:23] VITALS: BMI 26.2
[2019-03-18 03:24] VITALS: RESP 18; TEMP 97.7; O2SAT 100
--- NOTE | 2019-03-18 03:44 | ED PDOC ---
Arrival/HPI - General Chief Complaint: Medical Clearance Time Seen by Provider: 03/18/19 03:08 Historian: Patient, Family - History of Present Illness Narrative History of Present Illness (Text): 03/18/19 03:37 An 88 year old male, whose past medical history includes pancreatic cancer and bilateral inguinal hernia, presents to the emergency department accompanied by family sent by primary care doctor for abdominal catheter evaluation. Patient's family reports noticing leaking from abdominal catheter earlier today. Daughter notes patient was not given his usual nightly Tylenol and instead took his temperature. Daughter notes the patient's visiting nurse did not note any abnormalities in the abdominal catheter or fluids. Patient denies any current pain. Patient denies any fever, chills, shortness of breath, chest pain, diarrhea, nausea, vomiting, urinary symptoms, back pain, neck pain, headache, dizziness, or any other complaints. PMD: Dr. Pearson Time/Duration: 1-3 hours Symptom Onset: Gradual Symptom Course: Unchanged Activities at Onset: Light Context: Home Past Medical History - Provider Review Nursing Documentation Reviewed: Yes - Infectious Disease Hx of Infectious Diseases: None - Cardiac Hx Pacemaker: No - Pulmonary Hx Chronic Obstructive Pulmonary Disease (COPD): Yes - Neurological Hx Paralysis: No - Hematological/Oncological Hx Blood Transfusions: No Hx Blood Transfusion Reaction: No - Musculoskeletal/Rheumatological Hx Musculoskeletal Disorders: Yes - Gastrointestinal Other/Comment: Pancreatic cancer - Psychiatric Hx Emotional Abuse: No Hx Physical Abuse: No Hx Substance Use: No - Surgical History Other/Comment: aspira cath insertion - Anesthesia Hx Anesthesia: Yes Hx Anesthesia Reactions: No Hx Malignant Hyperthermia: No - Suicidal Assessment Feels Threatened In Home Enviroment: No Family/Social History - Physician Review Nursing Documentation Reviewed: Yes Family/Social History: No Known Family HX Smoking Status: Former Smoker Hx Alcohol Use: Yes (SOCIAL) Hx Substance Use: No Allergies/Home Meds Allergies/Adverse Reactions: Allergies No Known Allergies Allergy (Verified 03/18/19 21:36) Home Medications: Home Meds Medication Instructions Recorded Confirmed Aspirin [Adult Low Dose Aspirin EC] 81 mg PO QAM 05/18/18 03/18/19 Atorvastatin [Lipitor] 20 mg PO DAILY 05/18/18 03/18/19 Fluticasone/Vilanterol [Breo 1 puff IH QAM 05/18/18 03/18/19 Ellipta 100-25 Mcg INH] Umeclidinium [place] [Incruse 62.5 mcg IH QAM 05/18/18 03/18/19 Ellipta] Lipase/Protease/Amylase [[place] Dr 1 cap PO TID 06/14/18 03/18/19 24,000 Units Capsule] Finasteride 5 mg PO DAILY 03/02/19 03/18/19 Pyridoxine [Vitamin B6] 100 mg PO BID 03/02/19 03/18/19 Tamsulosin [Flomax] 0.4 mg PO DAILY 03/02/19 03/18/19 Lactulose [Constulose] 10 gm PO BID 03/08/19 03/18/19 Cholecalciferol (Vitamin D3) 1 cap PO DAILY 03/18/19 03/18/19 [Vitamin D3] Famotidine [Pepcid] 1 tab PO DAILY 03/18/19 03/18/19 Review of Systems - Physician Review All systems were reviewed & negative as marked: Yes - Review of Systems Constitutional: absent: Fevers, Other (chills) ENT: Other (phlegm ) Respiratory: absent: SOB Cardiovascular: absent: Chest Pain Gastrointestinal: Other (abdominal catheter leaking). absent: Diarrhea, Nausea, Vomiting Genitourinary Male: absent: Urinary Output Changes Musculoskeletal: absent: Back Pain, Neck Pain Neurological: absent: Headache, Dizziness Physical Exam Vital Signs Reviewed: Yes Vital Signs Temp Pulse Resp BP Pulse Ox 03/18/19 03:23 97.7 F 90 18 119/75 100 Temperature: Afebrile Blood Pressure: Normal Pulse: Regular Respiratory Rate: Normal Mental Status: Positive for: Alert and Oriented X 3 - Systems Exam Head: Present: Atraumatic, Normocephalic Pupils: Present: PERRL Extroacular Muscles: Present: EOMI Conjunctiva: Present: Normal Mouth: Present: Moist Mucous Membranes Respiratory/Chest: Present: Clear to Auscultation, Good Air Exchange. No: Respiratory Distress, Accessory Muscle Use Cardiovascular: Present: Regular Rate and Rhythm, Normal S1, S2. No: Murmurs Abdomen: Present: Other (abdominal catheter with yellow clear fluid noted) Neurological: Present: GCS=15, CN II-XII Intact, Speech Normal Skin: Present: Warm, Dry, Normal Color. No: Rashes Psychiatric: Present: Alert, Oriented x 3, Normal Insight, Normal Concentration Medical Decision Making ED Course and Treatment: 03/18/19 03:38 Impression: 88 year old male presenting to the emergency room sent by primary care doctor for abdominal catheter evaluation. Plan: -- Tylenol -- Xray of abdomen -- Reassess and disposition Prior Visits: Notes and results from previous visits were reviewed. Progress Notes: 03/18/19 04:39 Xray results show catheter intact and in place, family was updated. Will proceed to apply abdominal dressings. 03/18/19 05:17 Patient's daughter advised to follow up with Dr. Clark on Wednesday and to keep a close eye on the catheter, she acknowledges. Catheter dressings applied. - Scribe Statement The provider has reviewed the documentation as recorded by the Scribe Anahi Brower All medical record entries made by the Scribe were at my direction and personally dictated by me. I have reviewed the chart and agree that the record accurately reflects my personal performance of the history, physical exam, m edical decision making, and the department course for this patient. I have also personally directed, reviewed, and agree with the discharge instructions and disposition.\ Disposition/Present on Arrival - Present on Arrival Any Indicators Present on Arrival: No History of DVT/PE: No History of Uncontrolled Diabetes: No Urinary Catheter: No History of Decub. Ulcer: No History Surgical Site Infection Following: None - Disposition Have Diagnosis and Disposition been Completed?: Yes Diagnosis: Leaking PEG tube Disposition: HOME/ ROUTINE Disposition Time: 05:16 Patient Plan: Discharge Patient Problems: Current Active Problems Problem Status Onset Complication of catheter Acute Condition: STABLE Print Language: ITALIAN Additional Instructions: All medical record entries made by the Scribe were at my direction and personally dictated by me. I have reviewed the chart and agree that the record accurately reflects my personal performance of the history, physical exam, medical decision making, and the department course for this patient. I have also personally directed, reviewed, and agree with the discharge instructions and disposition. Please follow up with Dr. Albert Clark on Wednesday for reevaluation of the catheter Referrals: Albert Clark MD [Staff Provider] - Follow up with primary Katy Pearson MD [Primary Care Provider] - Follow up with primary Forms: [employer] (Georgian)
[2019-03-18 05:33] VITALS: BP 122/71; PULSE 88
--- NOTE | 2019-03-18 11:33 | RAD ---
Date of service: 03/18/2019 HISTORY: drainage from abdominal catheter COMPARISON: 02/27/2019 TECHNIQUE: 1 view obtained. FINDINGS: BOWEL: There are normal caliber gas-filled small bowel loops and gas in the colon. No evidence of bowel dilatation or obstruction. BONES: Status post laminectomy in the lower lumbar spine. Multilevel degenerative changes. OTHER FINDINGS: A drainage catheter overlies the right abdomen and with its tip overlying the left lower quadrant. IMPRESSION: Nonspecific nonobstructive bowel gas pattern.
== END 2019-03-18 05:33 | disposition home or self-care (01) ==
LOC: ED 03:03
DX: K94.23 Gastrostomy malfunction (principal); Y84.8 Other medical procedures as the cause of abnormal reaction of the patient, or of later complication, without mention of misadventure at the time of the procedure

== ENCOUNTER 2019-03-18 21:21 | Inpatient (IN) | payer MEDICARE, BC ==
--- NOTE | 2019-03-18 21:41 | ED PDOC ---
Arrival/HPI - General Historian: Patient - History of Present Illness Narrative History of Present Illness (Text): 03/18/19 21:26 88 y/o male, pmh including asthma/hld/bph/pancreatic cancer stage 4, nkda, bib family member, c/o leaking fluid around the abdominal peritoneal tunneled catheter. As per family, the fluid has been draining since the past week Wednesday, originally drained 1 time per week to twice per week now for the ascites, still leaking, seen by the visiting nurse, no fever or chills, no abdominal pain, no catheter skin redness, no diarrhea, no other medical or psychological complaints. PMD: Past Medical History - Provider Review Nursing Documentation Reviewed: Yes - Infectious Disease Hx of Infectious Diseases: None - Cardiac Hx Pacemaker: No - Pulmonary Hx Chronic Obstructive Pulmonary Disease (COPD): Yes - Neurological Hx Paralysis: No - Hematological/Oncological Hx Blood Transfusions: No Hx Blood Transfusion Reaction: No - Musculoskeletal/Rheumatological Hx Musculoskeletal Disorders: Yes - Gastrointestinal Other/Comment: Pancreatic cancer - Psychiatric Hx Emotional Abuse: No Hx Physical Abuse: No Hx Substance Use: No - Surgical History Other/Comment: aspira cath insertion - Anesthesia Hx Anesthesia: Yes Hx Anesthesia Reactions: No Hx Malignant Hyperthermia: No - Suicidal Assessment Feels Threatened In Home Enviroment: No Family/Social History - Physician Review Nursing Documentation Reviewed: Yes Family/Social History: Unknown Family HX Smoking Status: Former Smoker Hx Alcohol Use: Yes (SOCIAL) Hx Substance Use: No Allergies/Home Meds Allergies/Adverse Reactions: Allergies No Known Allergies Allergy (Verified 03/18/19 21:36) Home Medications: Home Meds Medication Instructions Recorded Confirmed Aspirin [Adult Low Dose Aspirin EC] 81 mg PO QAM 05/18/18 03/18/19 Atorvastatin [Lipitor] 20 mg PO DAILY 05/18/18 03/18/19 Fluticasone/Vilanterol [Breo 1 puff IH [facility] 05/18/18 03/18/19 Ellipta 100-25 Mcg INH] Umeclidinium [place] [Incruse 62.5 mcg IH QAM 05/18/18 03/18/19 Ellipta] Lipase/Protease/Amylase [Creon Dr 1 cap PO TID 06/14/18 03/18/19 24,000 Units Capsule] Finasteride 5 mg PO DAILY 03/02/19 03/18/19 Pyridoxine [Vitamin B6] 100 mg PO BID 03/02/19 03/18/19 Tamsulosin [Flomax] 0.4 mg PO DAILY 03/02/19 03/18/19 Lactulose [Constulose] 10 gm PO BID 03/08/19 03/18/19 Cholecalciferol (Vitamin D3) 1 cap PO DAILY 03/18/19 03/18/19 [Vitamin D3] Famotidine [Pepcid] 1 tab PO DAILY 03/18/19 03/18/19 Review of Systems - Review of Systems Constitutional: absent: Fatigue, Fevers Eyes: absent: Vision Changes ENT: absent: Hearing Changes Respiratory: absent: SOB, Cough Cardiovascular: absent: Chest Pain Gastrointestinal: absent: Abdominal Pain, Nausea, Vomiting Musculoskeletal: absent: Arthralgias, Back Pain Skin: absent: Rash, Pruritis Psychiatric: absent: Anxiety, Depression, Suicidal Ideation Physical Exam Vital Signs Reviewed: Yes Temperature: Afebrile Pulse: Regular Respiratory Rate: Normal Appearance: Positive for: Well-Appearing, Non-Toxic, Comfortable Pain Distress: None Mental Status: Positive for: Alert and Oriented X 3 - Systems Exam Head: Present: Atraumatic, Normocephalic Pupils: Present: PERRL Extroacular Muscles: Present: EOMI Conjunctiva: Present: Normal Mouth: Present: Moist Mucous Membranes Neck: Present: Normal Range of Motion Respiratory/Chest: Present: Clear to Auscultation, Good Air Exchange. No: Respiratory Distress, Accessory Muscle Use Cardiovascular: Present: Regular Rate and Rhythm, Normal S1, S2. No: Murmurs Abdomen: Present: Normal Bowel Sounds, Other (visible abdomnial cathetr noted on the rt. periumbilical region with 1 suture noted with no streaking/erythematous or ulcers. ). No: Tenderness, Distention, Peritoneal Signs, Rebound, Guarding, McBurney's Point Tender, Rovsing's Sign Present, Scars Back: Present: Normal Inspection Upper Extremity: Present: Normal Inspection. No: Cyanosis, Edema Lower Extremity: Present: Normal Inspection. No: Edema Neurological: Present: GCS=15, CN II-XII Intact, Speech Normal Skin: Present: Warm, Dry, Normal Color. No: Rashes Psychiatric: Present: Alert, Oriented x 3, Normal Insight, Normal Concentration Medical Decision Making ED Course and Treatment: 03/18/19 22:04 -Pt. has been seen in the ER in 24 hours for the same complaints, will admit the patient for observation and have Dr. Clark evaluate the drainage catheter as well. The abdominal sonogram performed yesterday confirmed the catheter tip in the abdomen. -Labs/blood cultures due to the extraluminal catheter -Ekg -chest xray -Observe and reassess 03/18/19 22:20 -EKG:SR @ 88 BPM with PAC, RBBB, Lt. anterior fascicular block, no ST elevation or depression, no T wave inversion -Chest xray: ER wet read: no acute changes compared with previous chest xray -Labs show no acute findings except worsening of the elevated AST 673 from 400s, ALT 480s from 300s, Alk Phos 1900 from 1500s, worsening of LFTs and hyperbili 2.3 -Case discussed with Dr. Rushing, he agreed on the diagnosis/admission and admitting doctor for further evaluation -I discussed with Dr. Loving, covering for Dr. Oates, he agreed to admit the patient with Dr. Clark and Michel for routine consult. I discussed with the family and the patient, they agreed to be admitted. - RAD Interpretation Radiology Orders: no active pulmonary disease Software Tools Developer: Radiologist - EKG Interpretation EKG Interpretation (Text): 03/18/19 22:11 SR @ 88 BPM with PAC, RBBB, Lt. anterior fascicular block, no ST elevation or depression, no T wave inversion Interpreted by ED Physician: Yes Type: 12 lead EKG - PA / [employer] PE TE[employer]ER / Resident Statement MD/DO has reviewed & agrees with the documentation as recorded. Disposition/Present on Arrival - Present on Arrival Any Indicators Present on Arrival: No History of DVT/PE: No History of Uncontrolled Diabetes: No Urinary Catheter: No History of Decub. Ulcer: No History Surgical Site Infection Following: None - Disposition Have Diagnosis and Disposition been Completed?: Yes Diagnosis: Ascites, Complication of catheter, Pancreatic cancer, Transaminitis Disposition: HOSPITALIZED Disposition Time: 22:07 Patient Plan: Observation Patient Problems: Current Active Problems Problem Status Onset Ascites Acute Complication of catheter Acute Pancreatic cancer Acute Transaminitis Acute Condition: GUARDED
[2019-03-18 21:45] VITALS: BMI 25.5
[2019-03-18 22:34] LABS: BASO # 0.02 K/mm3 (0.0-2.0); BASO % 0.4 % (0.0-3.0); EOS # 0.1 (0.0-0.7); EOS % 1.5 % (1.5-5.0); HEMOGLOBIN 10.2 g/dL (14.0-18.0); MEAN CELL VOLUME 85.6 fl (80.0-105.0); MEAN CORPUSCULAR HEMOGLOBIN 27.8 pg (25.0-35.0); MEAN CORPUSCULAR HGB CONC 32.5 g/dl (31.0-37.0); MEAN PLATELET VOLUME 9.6 fl (7.0-11.0); MONO # 0.9 (0.1-0.6); MONO % 17.3 % (1.0-6.0); RBC 3.67 10^6/uL (3.5-6.1); RED CELL DISTRIBUTION WIDTH 19.6 % (11.5-14.5); WHITE BLOOD COUNT 5.4 10^3/uL (4.5-11.0)
[2019-03-18 22:38] LABS: INR 1.07; PARTIAL THROMBOPLASTIN TIME 27.2 Seconds (26.9-38.3); PROTHROMBIN TIME 11.9 SECONDS (9.4-12.5)
[2019-03-18 22:53] LABS: ALT/SGPT 483 U/L (7-56); AST/SGOT 673 U/L (17-59); BLOOD UREA NITROGEN 18 mg/dL (7-21); CALCIUM 8.6 mg/dL (8.4-10.5); GFR NON-AFRICAN AMERICAN > 60
[2019-03-19 07:43] LABS: URINE BILIRUBIN MODERATE (NEGATIVE); URINE BLOOD NEGATIVE (NEGATIVE); URINE GLUCOSE (UA) NEGATIVE (NEGATIVE); URINE LEUKOCYTE ESTERASE NEGATIVE Leu/uL (NEGATIVE); URINE PROTEIN NEGATIVE mg/dL (<30 mg/dL)
[2019-03-19 07:44] LABS: URINE APPEARANCE CLEAR (CLEAR); URINE COLOR DARK YELLOW (YELLOW)
--- NOTE | 2019-03-19 08:28 | RAD ---
Date of service: 03/18/2019 HISTORY: medical clearance COMPARISON: 11/14/2018 FINDINGS: Right-sided central venous catheter terminates at the cavoatrial junction. LUNGS: The lungs are well inflated and clear. There is linear scarring in the right lung base. PLEURA: No pleural effusions or pneumothorax. CARDIOVASCULAR: The heart is normal in size. There are aortic atherosclerotic calcifications present. OSSEOUS STRUCTURES: Within normal limits for the patient's age. VISUALIZED UPPER ABDOMEN: Normal. OTHER FINDINGS: None. IMPRESSION: No active pulmonary disease.
[2019-03-19] MEDS: [UNRECOGNIZED DRUG - OTHER] PO SCH ×3 (09:56→18:58)
[2019-03-19] MEDS: Potassium Chl 10 mEq in D5-1/2 1,000 ML IV SCH (15:53)
--- NOTE | 2019-03-19 21:39 | HP ---
DATE OF EXAM: 03/19/2019 CHIEF COMPLAINT AND HISTORY OF PRESENT ILLNESS: This is an 88-year-old male who is coming to the hospital because of leakage from his tunneled catheter that is in the abdomen. 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 The patient has been drained, but continues to have leakage around the catheter. The patient's at the bedside states that they had called Dr. Albert Clark, and he had explained that ascites should be drained so that decreased with pressure and causing the leakage. She states that it was drained, but he continues to have so much leakage that he did require towel to help clean up and prevent the leakage from the . The towels do get wet. The patient denies any abdominal pain. No back pain. No dysuria or frequency. No nocturia. No weakness in the arms and the legs. He is able to ambulate. He is able to eat, but not as well as before. He has no diarrhea. No nausea or vomiting. No dysarthria or dysphagia. REVIEW OF SYMPTOMS: All other review of symptoms are within normal limits except that was mentioned. PAST MEDICAL HISTORY: Pancreatic cancer, coronary artery disease, COPD, GERD. SOCIAL HISTORY: He is a former smoker. Drinks socially in the past. He denies substance abuse. FAMILY HISTORY: Noncontributory. ALLERGIES: NO KNOWN DRUG ALLERGIES. HOME MEDICATIONS: Aspirin, lactulose, Creon, finasteride, Flomax, Lipitor, Pepcid. PHYSICAL EXAMINATION VITAL SIGNS: Temperature is 98, pulse of 85, blood pressure is 101/64, respirations 20 and O2 saturation is 96%. Height is 5 feet, 8 inches. Weight is 168 pounds. BMI is 25.5. GENERAL: The patient is lying in bed, comfortable, and in no acute distress. HEENT: Atraumatic and normocephalic. Anicteric sclerae. Moist mucosa. [place] conjunctivae. No oral lesions. NECK: No JVD, anterior and posterior adenopathy, thyromegaly, or bruits. CARDIOVASCULAR: S1 and S2 regular. No murmurs, rubs or gallops. LUNGS: Clear to auscultation bilaterally. No wheezes, rales, or rhonchi. ABDOMEN: There is a tunneled catheter in the abdomen. There is some drainage with wet dressing around his catheter site. His abdomen is soft. There is no tense ascites. EXTREMITIES: No cyanosis, clubbing, or edema. NEUROLOGIC: No facial asymmetry. Tongue is midline. No uvula deviation. Power is 5/5 upper extremities and lower extremities. Sensation intact in upper extremities and lower extremities. PSYCHIATRIC: She is awake, alert and oriented x3. No anxiety or depression. She has normal affect. GENITOURINARY: No CVA tenderness. VASCULAR: 2+ pulses in the carotid pulses and pedal pulses. SKIN: No erythema or nodules. SPINE: Shows normal curvature. LABORATORY DATA: White count of 5.4, hemoglobin 10.2, platelet count is 235. INR is 1.07. Chemistry shows a sodium 134. The creatinine is 0.6. AST and ALT 673 and 483. Albumin is 3.0. The patient's urine shows bilirubin is moderate. Ketone is negative. Blood is negative. Chest x-ray done shows no active pulmonary disease. ASSESSMENT: 1. Ascites. 2. Malfunction of peritoneal dialysis catheter. 3. Pancreatic cancer. 4. Transaminitis. 5. Coronary artery disease. 6. Chronic obstructive pulmonary disease. 7. Anemia, chronic. Also EKG shows sinus rhythm at 88 with PACs, there is no ST-T changes. PLAN: The patient is going to be brought into the hospital to evaluate the dysfunction of the catheter in his abdomen. The patient is on lactulose for constipation. He is on aspirin daily. He is on Lipitor for dyslipidemia. The patient is on Proscar for his BPH. He is on aspirin for his coronary artery disease. The patient is on a heart healthy diet. I will get to Dr. Albert Clark from IR to evaluate the patient and also Dr. Pearson from Oncology to follow the patient. I did speak to the patient's at the bedside. The patient is also on Creon for his digestion because of pancreatic insufficiency. Kana Penaloza MD
[2019-03-19] MEDS ORDERED: Albuterol-Ipratrop 3 mg / 0.5 (3 ml) UD IH STA (22:33)
--- NOTE | 2019-03-20 01:04 | HP ---
DATE OF EXAM: 03/19/2019 This is [facility] admission history and physical on the medical floor. For Dr. Pearson. CHIEF COMPLAINT: Abdominal pain/drain leak. HISTORY OF PRESENT ILLNESS: The patient is an 88-year-old male with a known past history for pancreatic cancer with liver invasion, now with recurrent ascites, for which he has a peritoneal catheter which was functioning well for approximately two weeks time and now for the past few days, increased leakage around the catheter site despite taking off extra fluid with the patient having had an emergency room visit two days prior with pressure dressings applied with continued leaking despite this and now admitted for 5/10 abdominal pain with continued persistent leakage around the site of his abdominal catheter. Family members were at the bedside with the patient tolerating minimal amounts of p.o. We are refusing narcotic analgesics for his pain with Tylenol helping at home with liver function tests significantly elevated from his underlying disease process. ALLERGIES: NO KNOWN ALLERGIES. PAST MEDICAL HISTORY: Significant for pancreatic cancer with invasion to liver stage I, on chemotherapy; status post stenting for his heart; ASCVD; GERD; bilateral inguinal herniae repair recently; anemia of chronic disease; intractable pain of cancer and COPD. MEDICATIONS: The patient's medicines include aspirin, lactulose, tamsulosin, Breo Ellipta, Lipitor, Pepcid with dietary supplements, famotidine, and Proscar. SOCIAL HISTORY: He quit smoking 20 years ago, smoked for about 50 years prior to this. Quit alcohol years ago. Daughter and son at the bedside, otherwise noncontributory. REVIEW OF SYSTEMS: A 12-point review of systems was done which is negative to questions except for items mentioned in history of present illness. OBJECTIVE/PHYSICAL EXAMINATION: VITAL SIGNS: Temperature 98, pulse 85, respirations 20, blood pressure 101/64, and pulse oximetry 96%. HEENT: Unremarkable. Tongue is moist. NECK: Supple. HEART: Regular rate, occasional ectopic beat. LUNGS: Rare rhonchi. ABDOMEN: Soft, minimal tenderness to general palpation at mid epigastrium with a viable catheter site. Catheter noted with no skin breakage in that area to inspection. EXTREMITIES: No edema. SKIN: Warm and dry. NEUROLOGIC: Somnolent, but arousable. LABORATORY DATA: The patient's labs were done. White blood cell count of 5.4, hemoglobin 10.2, hematocrit 31.4, and platelet count of 235,000. Metabolic panel showing a nonfasting glucose 124, T bili of 2.3, AST of 673 with ALT of 483, and alk phos of 1971. It should be noted that the patient did have tumor marker testings in the past, which show CA 19-9 in 04/2018 of 2360 with more recent testing from our office which should be addended to this dictation in the future. His PSA is also to be tested. The patient had a chest x-ray done yesterday. It was read as no active pulmonary disease. He had a flat plate of his abdomen done yesterday; it was read as nonspecific nonobstructive bowel gas pattern with the drainage catheter in the right abdomen with its tip overlying the left lower quadrant with the patient being status post laminectomy in the lower spine with DJD changes. An EKG was also done with preliminary reading that is sinus rhythm, anterior fascicular block, [id number] depression. No T-wave inversion. Official report pending. ASSESSMENT: The assessment for this patient is that of a leaking peritoneal catheter with ascites, stage IV pancreatic cancer with liver metastases, abnormal liver function tests, chronic obstructive pulmonary disease, gastroesophageal reflux disease, anemia of chronic disease, and atherosclerotic cardiovascular disease, status post stenting. PLAN: The plan for this patient after conversation with Dr. Pearson is to admit to the medical floor. We have asked for consult of Dr. Penaloza who covers for Dr. Oates, his primary doctor. Also consult with Dr. Raymundo Sinclair, his channel lip wetter and Dr. Albert Clark to address his catheter leakage with further recommendations as indicated. We will also start low-flow IV fluids as this may be resulting in his heme constriction with abnormally elevated liver function tests and his blood counts. We will also consider low-dose 1 mg every 4 hours of morphine sulfate parenterally should it be necessary for his pain; however, at this point, we will resume the Tylenol with tramadol as needed as a nonsteroidal may cause more gastrointestinal discomfort with possible bleeding as the patient is not tolerating a diet well at this time. This is a complex patient with a comprehensive medically necessary and appropriate visit carried out in excess of 60 minutes with the patient's questions answered to his satisfaction. Ruperto MD Deepti [facility] # [id number]
--- NOTE | 2019-03-20 02:06 | CP.PCM.PN ---
Subjective - Date & Time of Evaluation Date of Evaluation: 03/20/19 Time of Evaluation: 02:06 - Subjective Subjective: TBD Objective - Vital Signs/Intake and Output Vital Signs (last 24 hours): Temp Pulse Resp BP Pulse Ox 97.9 F 82 20 95/58 L 95 03/19/19 16:00 03/19/19 16:00 03/19/19 16:00 03/19/19 16:00 03/19/19 16:00 Intake and Output: 03/19/19 03/20/19 18:59 06:59 Intake Total 647 Balance 647 - Medications Medications: Current Medications Acetaminophen (Tylenol 325mg Tab) 650 mg PO Q4H PRN PRN Reason: Pain, Mild (1-3) Last Admin: 03/19/19 20:28 Dose: 650 mg Aspirin (Ecotrin) 81 mg PO QAM [facility] Last Admin: 03/19/19 09:56 Dose: 81 mg Atorvastatin Calcium (Lipitor) 20 mg PO 1700 [facility] Last Admin: 03/19/19 18:58 Dose: 20 mg Famotidine (Pepcid) 20 mg PO [facility] Last Admin: 03/19/19 22:08 Dose: 20 mg Finasteride (Proscar) 5 mg PO [facility] Last Admin: 03/19/19 22:08 Dose: 5 mg Home Med (Home Med) 1 unit PO TID [facility] Last Admin: 03/19/19 18:58 Dose: 1 unit Potassium Chloride/Dextrose/Sod Cl (Potassium Chl 10 Meq In D5-1/2ns) 1,000 mls @ 40 mls/hr IV .Q24H [facility] Last Admin: 03/19/19 15:53 Dose: 40 mls/hr Lactulose (Enulose) 10 gm PO BID [facility] Last Admin: 03/19/19 18:57 Dose: 10 gm Non-Formulary Medication (Fluticasone/Vilanterol [Breo Ellipta 100-25 Mcg Inh]) 1 puff IH QAM [facility] Tamsulosin HCl (Flomax) 0.4 mg PO 1800 [facility] Last Admin: 03/19/19 18:57 Dose: 0.4 mg Tramadol HCl (Ultram) 50 mg PO TID PRN PRN Reason: Pain, moderate (4-7) - Labs Labs: 03/18/19 22:05 05/11/19 22:05 PT 11.9 SECONDS (9.4-12.5) 03/18/19 22:05 INR 1.07 03/18/19 22:05 APTT 27.2 Seconds (26.9-38.3) 03/18/19 22:05
[2019-03-20 07:07] LABS: BASO # 0.02 K/mm3 (0.0-2.0); BASO % 0.4 % (0.0-3.0); EOS # 0.1 (0.0-0.7); EOS % 1.4 % (1.5-5.0); HEMOGLOBIN 9.3 g/dL (14.0-18.0); LYMPH # 1.2 (1.2-3.4); MEAN CELL VOLUME 85.2 fl (80.0-105.0); MEAN CORPUSCULAR HEMOGLOBIN 27.5 pg (25.0-35.0); MEAN CORPUSCULAR HGB CONC 32.3 g/dl (31.0-37.0); MEAN PLATELET VOLUME 9.7 fl (7.0-11.0); MONO # 0.9 (0.1-0.6); MONO % 15.8 % (1.0-6.0); RBC 3.38 10^6/uL (3.5-6.1); RED CELL DISTRIBUTION WIDTH 19.2 % (11.5-14.5); WHITE BLOOD COUNT 5.5 10^3/uL (4.5-11.0)
--- NOTE | 2019-03-20 07:18 | CARD ---
APPROVED REPORT Date of service: 03/18/2019 EKG Measurement Heart [id number] <Conclusion> Sinus rhythm with premature atrial complexes Right bundle branch block Left anterior fascicular block Bifascicular block Cannot rule out Inferior infarct (masked by fascicular block?), age undetermined Abnormal ECG
[2019-03-20 07:35] LABS: ALB/GLOB RATIO 0.9 (1.1-1.8); ALBUMIN 2.6 g/dL (3.0-4.8); ALT/SGPT 358 U/L (7-56); AST/SGOT 381 U/L (17-59); BLOOD UREA NITROGEN 12 mg/dL (7-21); CALCIUM 8.3 mg/dL (8.4-10.5); GFR NON-AFRICAN AMERICAN > 60
[2019-03-20] MEDS: [UNRECOGNIZED DRUG - OTHER] PO SCH ×3 (09:45→18:02)
[2019-03-20] MEDS: Non Formulary Medication (Fluticasone/Vilanterol [Breo Ellipta 100-25 Mcg Inh] 1 PUFF) IH SCH (09:47)
--- NOTE | 2019-03-20 11:57 | CON ---
DATE OF CONSULTATION: 03/20/2019 GASTROENTEROLOGY CONSULTATION REQUESTING PHYSICIAN: Dr. Penaloza. 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 The patient states that the dressing around the catheter becomes wet shortly after the dressing change. He currently denies any abdominal pain, fevers or chills. His last chemotherapy dose was about a month ago. A PET scan of the abdomen 2 months ago reveals a large mass in the junction of the body and head of the pancreas as well as two metastatic lesions in the right lobe of the liver, one measuring approximately 5 x 3 cm with a necrotic-appearing center of the mass. I have been asked to see this patient for elevated liver enzymes. His AST on 03/18 was 673 with an ALT of 483 and an alkaline phosphatase of 1971 with a total bilirubin 2.3 and this morning his AST is 381 with an ALT of 358 and an alkaline phosphatase of 1690. He denies any fevers or chills. 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 He denies alcohol abuse. FAMILY HISTORY: Noncontributory. REVIEW OF SYSTEMS: Fourteen-point review of systems is notable for abdominal distention and leakage of ascites fluid around his peritoneal catheter. MEDICATIONS: Medications at home include Creon finasteride Flomax, Lipitor, Pepcid, lactulose and aspirin. PHYSICAL EXAMINATION: GENERAL: Well-developed, elderly male, lying in bed ,comfortable. VITAL SIGNS: Reveal a temperature of 98.2, blood pressure 110/65, heart rate of 85. HEENT: Reveals sclerae to be white. Conjunctivae pink. NECK: Supple. CHEST: Reveal distant breath sounds. HEART: Exam reveals regular rate and rhythm. ABDOMEN: Soft. He has a peritoneal catheter covered by dressing in his mid abdomen. EXTREMITIES: Show no edema. LABORATORY DATA: Reveals liver enzymes as above. CBC reveals hemoglobin 9.3. Coags reveal normal PT/INR. IMPRESSION: An 88-year-old male with stage IV pancreatic cancer with metastasis to liver with intractable ascites and leakage of ascitic fluid from around his peritoneal catheter. The elevated liver enzymes are secondary to two large metastatic lesions in the right lobe of the liver. RECOMMENDATIONS: Interventional Radiology evaluation for large volume paracentesis to decrease leakage around the peritoneal catheter. Raymundo Sinclair MD
--- NOTE | 2019-03-20 13:32 | CT ---
Date of service: 03/20/2019 PROCEDURE: CT Abdomen and Pelvis without intravenous contrast HISTORY: Panc CA. Eval ascites and Aspira for leaking COMPARISON: CT 02/22/2019 TECHNIQUE: Without contrast.. Contrast dose: Radiation dose: Total exam DLP = 648.82 mGy-cm. This CT exam was performed using one or more of the following dose reduction techniques: Automated exposure control, adjustment of the mA and/or kV according to patient size, and/or use of iterative reconstruction technique. FINDINGS: LOWER THORAX: Unremarkable. LIVER: There is a slight increase in the size of the metastatic lesions in the liver. The largest lesion now measures 4 by 6.2 cm previously 3.5 x 5.5 cm. GALLBLADDER AND BILE DUCTS: Mildly distended PANCREAS: Unremarkable. No gross lesion or ductal dilatation. SPLEEN: Unremarkable. ADRENALS: Unremarkable. No mass. KIDNEYS AND URETERS: Unremarkable. No hydronephrosis. No solid mass. VASCULATURE: Unremarkable. No aortic aneurysm. No aortic atherosclerotic calcification or mural plaque present. BOWEL: Unremarkable. No obstruction. No gross mural thickening. APPENDIX: Unremarkable. Normal appendix. PERITONEUM: There is a small amount of ascites. The ascites has decreased since the prior exam. There is now a peritoneal drainage catheter in place. Fluid can be seen extending into the scrotum bilaterally right greater than left. This is unchanged. LYMPH NODES: Unremarkable. No enlarged lymph nodes. BLADDER: Unremarkable. REPRODUCTIVE: Unremarkable. BONES: No acute fracture. OTHER FINDINGS: None. IMPRESSION: Small amount of ascites. Ascites has slightly decreased since the prior exam. There is now a drainage catheter in place. Slight increase in size of liver metastases.
--- NOTE | 2019-03-20 14:50 | CP.PCM.PN ---
<Eliot Benitez - Last Filed: 03/20/19 14:47> Subjective - Date & Time of Evaluation Date of Evaluation: 03/20/19 Time of Evaluation: 07:35 - Subjective Subjective: Eliot Benitez D.O. PGY-3, Internal Medicine Resident, Dr. Penaloza's Service, Progress Note 88-year-old male with a past medical history of asthma, BPH, hyperlipidemia, and stage IV pancreatic cancer who presented for malfunctioning aspira catheter. Patient was seen and examined at bedside with present. States that currently he is doing "okay." States pain is well controlled. Recently had dressings around the catheter insertion site changed but states the last ones were very soaked and he continues to drain around the catheter. Objective - Vital Signs/Intake and Output Vital Signs (last 24 hours): Temp Pulse Resp BP Pulse Ox 98.2 F 82 19 110/65 98 03/20/19 07:51 03/20/19 07:51 03/20/19 07:51 03/20/19 07:51 03/20/19 07:51 Intake and Output: 03/20/19 03/20/19 06:59 18:59 Intake Total 480 Balance 480 - Medications Medications: Current Medications Acetaminophen (Tylenol 325mg Tab) 650 mg PO Q4H PRN PRN Reason: Pain, Mild (1-3) Last Admin: 03/20/19 09:55 Dose: 650 mg Aspirin (Ecotrin) 81 mg PO QAM [facility] Last Admin: 03/20/19 09:46 Dose: 81 mg Atorvastatin Calcium (Lipitor) 20 mg PO 1700 [facility] Last Admin: 03/19/19 18:58 Dose: 20 mg Famotidine (Pepcid) 20 mg PO [facility] Last Admin: 03/19/19 22:08 Dose: 20 mg Finasteride (Proscar) 5 mg PO [facility] Last Admin: 03/19/19 22:08 Dose: 5 mg Home Med (Home Med) 1 unit PO TID [facility] Last Admin: 03/20/19 09:45 Dose: 1 unit Potassium Chloride/Dextrose/Sod Cl (Potassium Chl 10 Meq In D5-1/2ns) 1,000 mls @ 40 mls/hr IV .Q24H [facility] Last Admin: 03/19/19 15:53 Dose: 40 mls/hr Lactulose (Enulose) 10 gm PO BID [facility] Last Admin: 03/20/19 09:46 Dose: 10 gm Non-Formulary Medication (Fluticasone/Vilanterol [Breo Ellipta 100-25 Mcg Inh]) 1 puff IH QAM [facility] Last Admin: 03/20/19 09:47 Dose: Not Given Tamsulosin HCl (Flomax) 0.4 mg PO BID [facility] Tramadol HCl (Ultram) 50 mg PO TID PRN PRN Reason: Pain, moderate (4-7) Last Admin: 03/20/19 06:34 Dose: 50 mg - Labs Labs: 03/20/19 06:20 03/20/19 06:20 PT 11.9 SECONDS (9.4-12.5) 03/18/19 22:05 INR 1.07 03/18/19 22:05 APTT 27.2 Seconds (26.9-38.3) 03/18/19 22:05 - Constitutional Appears: No Acute Distress, Chronically Ill - Head Exam Head Exam: ATRAUMATIC, NORMOCEPHALIC - Eye Exam Eye Exam: EOMI. absent: Scleral icterus - ENT Exam ENT Exam: Mucous Membranes Moist - Neck Exam Neck Exam: Normal Inspection - Respiratory Exam Respiratory Exam: Clear to Ausculation Bilateral. absent: Rhonchi, Wheezes - Cardiovascular Exam Cardiovascular Exam: +S1, +S2. absent: Rubs - GI/Abdominal Exam GI & Abdominal Exam: Distended (mildly), Soft, Tenderness (mild diffuse) Additional comments: aspira catheter with fresh dressing, no erythema noted - Extremities Exam Extremities Exam: Normal Capillary Refill. absent: Calf Tenderness - Neurological Exam Neurological Exam: Alert, Awake, Oriented x3 - Skin Skin Exam: Dry, Warm Assessment and Plan - Assessment and Plan (Free Text) Assessment: 88-year-old male with a past medical history of asthma, BPH, hyperlipidemia, and stage IV pancreatic cancer who presented for malfunctioning aspira catheter. Plan: 1. Malfunctioning aspira catheter 2. Asthma 3. Hyperlipidemia 4. BPH 5. CAD 6. Constipation 7. Anemia of chronic disease 8. Transaminitis Interventional radiology to evaluate patient. Catheter was inserted on 03/03/2019. Repeat abdomen and pelvis CT has been ordered, will follow up the results. Heme-onc is also been consulted, recs appreciated. GI was consulted as well, recs also reviewed and appreciated. Will continue with aspirin, atorvastatin, famotidine, Proscar, lactulose, Breo ellipta, Flomax. Pain appears to be well controlled at this time will continue with tramadol. Continue gentle IV hydration per heme-onc. Management at this time is palliative in nature. Patient was seen and examined and case was discussed at length with attending physician. <Kana Penaloza S - Last Filed: 03/20/19 15:42> Objective - Vital Signs/Intake and Output Vital Signs (last 24 hours): Temp Pulse Resp BP Pulse Ox 98.2 F 82 19 110/65 98 03/20/19 07:51 03/20/19 07:51 03/20/19 07:51 03/20/19 07:51 03/20/19 07:51 Intake and Output: 03/20/19 03/20/19 06:59 18:59 Intake Total 480 Balance 480 - Medications Medications: Current Medications Acetaminophen (Tylenol 325mg Tab) 650 mg PO Q4H PRN PRN Reason: Pain, Mild (1-3) Last Admin: 03/20/19 09:55 Dose: 650 mg Albuterol/Ipratropium (Duoneb 3 Mg/0.5 Mg (3 Ml) Ud) 3 ml IH [id number] PRN PRN Reason: Shortness of Breath Aspirin (Ecotrin) 81 mg PO QAM [facility] Last Admin: 03/20/19 09:46 Dose: 81 mg Atorvastatin Calcium (Lipitor) 20 mg PO 1700 [facility] Last Admin: 03/19/19 18:58 Dose: 20 mg Famotidine (Pepcid) 20 mg PO [facility] Last Admin: 03/19/19 22:08 Dose: 20 mg Finasteride (Proscar) 5 mg PO [facility] Last Admin: 03/19/19 22:08 Dose: 5 mg Home Med (Home Med) 1 unit PO TID [facility] Last Admin: 03/20/19 09:45 Dose: 1 unit Potassium Chloride/Dextrose/Sod Cl (Potassium Chl 10 Meq In D5-1/2ns) 1,000 mls @ 40 mls/hr IV .Q24H [facility] Last Admin: 03/19/19 15:53 Dose: 40 mls/hr Albumin Human (Albumin Human 25% (25 Gm/100 Ml)) 100 mls @ 1 mls/min IVPB ONCE ONE Stop: 03/20/19 16:38 Lactulose (Enulose) 10 gm PO BID [facility] Last Admin: 03/20/19 09:46 Dose: 10 gm Non-Formulary Medication (Fluticasone/Vilanterol [Breo Ellipta 100-25 Mcg Inh]) 1 puff IH QAM [facility] Last Admin: 03/20/19 09:47 Dose: Not Given Tamsulosin HCl (Flomax) 0.4 mg PO BID [facility] Tramadol HCl (Ultram) 50 mg PO TID PRN PRN Reason: Pain, moderate (4-7) Last Admin: 03/20/19 06:34 Dose: 50 mg - Labs Labs: 03/20/19 06:20 03/20/19 06:20 PT 11.9 SECONDS (9.4-12.5) 03/18/19 22:05 INR 1.07 03/18/19 22:05 APTT 27.2 Seconds (26.9-38.3) 03/18/19 22:05 Assessment and Plan - Assessment and Plan (Free Text) Plan: Pt seen and examined by me. I have reviewed the note of the medical affairs leader and I agree with it. I have discussed the assessment and plan with the resident. I have reviewed the medications and the last labs.
[2019-03-20] MEDS ORDERED: Albuterol-Ipratrop 3 mg / 0.5 (3 ml) UD IH PRN (14:55)
[2019-03-20] MEDS ORDERED: Morphine 2 mg/ml ISec IVP STA ×3 (15:58→18:58)
[2019-03-20] MEDS: Potassium Chl 10 mEq in D5-1/2 1,000 ML IV SCH (18:08)
--- NOTE | 2019-03-20 20:45 | PN ---
DATE: 03/20/2019 The patient was seen and examined. I do agree with the note of the medical specialist that was involved with the plan of care. The patient has a catheter in his abdomen that has been leaking. He is waiting for evaluation by Dr. Albert Clark. The patient's son is at the bedside. I did speak to him regarding update. The patient is on lactulose for his constipation and the patient is on atorvastatin for his dyslipidemia. He is on Proscar for his BPH. He is on Breo for his COPD. He is on Flomax for his BPH. The patient is not eating well. The patient's family is trying to encourage to increase his intake. The patient is currently on IV fluids that was placed by the Oncology team. The patient is on a heart healthy diet. He has pancreatic CA that is advanced with malignant ascites. The patient does have a transaminitis. We will continue to follow with blood work. Anemia is chronic and we will continue to follow the hemoglobin. Kana Penaloza MD
[2019-03-20 20:51] LABS: ALB/GLOB RATIO 1.1 (1.1-1.8); ALT/SGPT 357 U/L (7-56); AST/SGOT 404 U/L (17-59); BLOOD UREA NITROGEN 15 mg/dL (7-21); CALCIUM 8.5 mg/dL (8.4-10.5); GFR NON-AFRICAN AMERICAN > 60
--- NOTE | 2019-03-21 05:00 | PN ---
DATE: 03/20/2019 ONCOLOGY PROGRESS NOTE LOCATION: The patient is in room 360, bed 2. 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 The patient is now admitted to the hospital over the weekend because of progressive leakage of fatty fluid around the Aspira catheter. The dressing was getting wet and saturated despite being changed every 4 hours. The patient had been seen by the [facility] at home, advised to come to the ER if the drainage persisted and this happened all of a sudden in the last 48 hours. The issue was not clear at this point for the leakage that was coming around the catheter was some progressive increase in the ascites or whether because there was leakage around the cuff that the patient may need additional stitches. The patient came into the emergency room, has been admitted, and he has been put on medications. He has had fluid in catheter, and about 1100 mL of ascitic fluid has been removed. The patient had a CAT scan of the abdomen and pelvis done today without noncontrast. Since then, the patient is back on the floor. We reviewed the films with the patient, and I spoke to Dr. Albert Clark it looks like because of the continuous leakage around the site where the catheter enters the abdominal cavity. It is tunneled subcutaneously for several inches before it actually penetrates into the peritoneal cavity, so the tunnel itself may not be densely adherent to the catheter, and there could be leakage coming around it. Protecting with an additional suture may be more appropriate, which is going to be done later on today. Subjectively, the patient tells me that his appetite has decreased. There is no significant nausea, no coughing, and no wheezing. Abdominal discomfort is still there because of the distention. The patient has been taking pain medications in the form of tramadol and Tylenol. He has not required any IV narcotics. PHYSICAL EXAMINATION: GENERAL: The patient is ill looking. Temporal muscle wasting is noted. VITAL SIGNS: Stable. T-max is 98.4, pulse of 82, respiration is 19, blood pressure is 110/65, and pulse ox is 98% on room air. HEENT: Head is normocephalic and atraumatic. Conjunctivae are pale. Sclerae are anicteric. Pupils are equally reacting to light and accommodation with no evidence of significant icterus at this time. Examination of the oropharynx reveals tongue to be moist. No ulcerations are noted. No evidence of candidiasis is noted. NECK: Supple. There is no adenopathy. LUNGS: Reveal decreased breath sounds in both bases. CARDIOVASCULAR SYSTEM: Reveals S1 and S2 to be normal. No gallop or murmur is heard. ABDOMEN: Soft, mildly distended with ascites with leakage around the tunneled catheter in the right lower quadrant. I reviewed the site with Dr. Albert Clark who is now planning to do an additional suture at the site of the insertion, so that hopefully with a pursestring suture, the oozing should cease over the next few hours. Abdominal examination does not reveal any significant rebound, rigidity, or guarding. No palpable masses per se are noted. The patient has fluid extending into his scrotum. The patient does have bilateral inguinal hernia. EXTREMITIES: No surgeries. No significant cyanosis, clubbing, or edema. NEUROLOGIC: The patient's higher functions are normal. No focal deficits are noted. The patient is awake, alert, and oriented to time, place, and person. He feels that his appetite has decreased. He wants to have some comfort level with discomfort in his belly, which I told him that we might try to give him small amounts of morphine to alleviate his pain. MEDICATIONS: The patient's medications were reviewed. He is on Tylenol 650 mg every 4 hours p.r.n., aspirin 81 mg daily, Lipitor 20 mg daily, Pepcid 20 mg p.o. daily, Proscar 5 mg p.o. at bedtime, Flomax 0.4 mg b.i.d.. He is on Creon supplements. He is on lactulose 10 g p.o. b.i.d. He is on Breo Ellipta one puff inhaled once daily. He is on tramadol 50 mg p.o. t.i.d. p.r.n. LABORATORY DATA: Today lab data was reviewed with the patient. White count is 5.5, hemoglobin 9.3, hematocrit 28.8, and platelet count is 226,000. Chemistries reveal electrolytes to be normal. Calcium is 8.3, total bilirubin is 2, AST is 381, ALT is 358, alkaline phosphatase is 1690. Ammonia level is 47. Total protein is 5.4 with an albumin of 2.6. CEA is 38.2. ASSESSMENT, NOTES, AND PLAN: The patient's medications were reviewed. I had a long discussion with the patient and his daughter. I spoke to Dr. Albert Clark as well. Plan is to take an additional stitch at the site where the leakage is taking place. Watch the patient for the next several hours to see if the drainage is going stop. I am also going to give the patient intravenous albumin and monitor him very carefully. I am going to give him small amounts of morphine to alleviate some of the discomfort as long as his systolic pressures are above 90. I will follow the patient very carefully and also hydrate him gently. The patient has been started on intravenous fluids at 60 mL an hour. Blood work for morning has been requested. We will follow the patient very carefully. If the patient's condition is stable and does not have any more oozing from the site. We plan on tapping additional fluid in the morning and then discharge the patient for further followup as an outpatient. Our plan is to see how his condition improves. The patient is on intravenous alimentation once a week along with Aspira catheter drainage at least twice a week. If his condition continues to improve, then I will plan giving him additional therapy. Right now prognostically speaking, the patient's condition is stable, though he is progressively worsening from the point of view of his pancreatic cancer site and the liver getting larger. The patient has not had any therapy now for about a month, and we have to make a judicious choice which direction we should proceed. The patient's family want us to be aggressive as best as is feasible, and we are trying to do that, which is giving him intravenous alimentation and see if we can turn things around before giving him his next cycle of treatment. Routine post-exam instructions have been given to the patient. We will try to coordinate events for morning by monitoring the patient very carefully through the night. Blood work for morning has also been requested. Please make a note this is a complex patient with multiple comorbid and medical issues. A considerable amount of time was spent counseling the patient and the family including the son and the daughter. Katy Pearson MD [facility] # [id number]
[2019-03-21] MEDS ORDERED: oxyCODONE 5 mg Immediate Release Tab PO PRN (07:37)
[2019-03-21 08:32] VITALS: BP 100/57; PULSE 87; RESP 20; TEMP 97.7; O2SAT 98
[2019-03-21] MEDS ORDERED: Potassium Chl 10 mEq in D5-1/2 1,000 ML IV SCH (08:50)
[2019-03-21] MEDS: [UNRECOGNIZED DRUG - OTHER] PO SCH (09:45)
[2019-03-21] MEDS: Non Formulary Medication (Fluticasone/Vilanterol [Breo Ellipta 100-25 Mcg Inh] 1 PUFF) IH SCH (09:46)
--- NOTE | 2019-03-21 14:19 | PN ---
DATE: 03/21/2019 SUBJECTIVE: The patient is lying in bed. He has had less drainage of ascites fluid since Dr. Clark put a suture around his peritoneal tube. His dressing is dry. He is comfortable and denies abdominal pain. PHYSICAL EXAMINATION: VITAL SIGNS: Reveal temperature of 97.7, blood pressure 100/57, heart rate of 87. HEENT: Reveal sclerae to be white. Conjunctivae pale. NECK: Supple. HEART: Reveals a regular rate and rhythm. CHEST: Reveal distant breath sounds. ABDOMEN: Distended with ascites. He has a peritoneal catheter in the mid abdomen. EXTREMITIES: Show no edema. LABORATORY DATA: Laboratory data reveal white blood cell count of 5.5, hemoglobin 9.3. Chemistries reveal AST of 404, ALT of 357, alkaline phosphatase of 1642, total bilirubin of 2.4. These numbers are essentially been stable over the last [address] scan of the abdomen and pelvis show increase in the size of his liver metastases. There is ascites still present, but appears less than from his prior CAT scan. IMPRESSION: Stage IV pancreatic cancer with ascites and elevated liver enzymes secondary to increasing liver metastasis. His long-term prognosis is extremely poor. RECOMMENDATIONS: Continue conservative treatment. He is to have more ascitic fluid drained from the peritoneal catheter today with Dr. Clark. Raymundo Sinclair MD
--- NOTE | 2019-03-21 17:09 | CP.PCM.PN ---
<Eliot Benitez - Last Filed: 03/21/19 17:05> Subjective - Date & Time of Evaluation Date of Evaluation: 03/21/19 Time of Evaluation: 08:00 - Subjective Subjective: Eliot Benitez D.O. PGY-3, Internal Medicine Resident, Dr. Penaloza's Service, Progress Note 88-year-old male with a past medical history of asthma, BPH, hyperlipidemia, and stage IV pancreatic cancer who presented for malfunctioning aspira catheter. Patient was seen and examined at bedside wit son at bedside. States has had no more leakage from drain since new stitch. Still with some aches and pain. Objective - Vital Signs/Intake and Output Vital Signs (last 24 hours): Temp Pulse Resp BP Pulse Ox 97.7 F 87 20 100/57 L 98 03/21/19 08:32 03/21/19 08:32 03/21/19 08:32 03/21/19 08:32 03/21/19 08:32 Intake and Output: 03/21/19 03/21/19 06:59 18:59 Intake Total 240 Balance 240 - Medications Medications: Current Medications Acetaminophen (Tylenol 325mg Tab) 650 mg PO Q4H PRN PRN Reason: Pain, Mild (1-3) Last Admin: 03/21/19 03:32 Dose: 650 mg Albuterol/Ipratropium (Duoneb 3 Mg/0.5 Mg (3 Ml) Ud) 3 ml IH [id number] PRN PRN Reason: Shortness of Breath Aspirin (Ecotrin) 81 mg PO QAM [facility] Last Admin: 03/21/19 09:45 Dose: 81 mg Atorvastatin Calcium (Lipitor) 20 mg PO 1700 [facility] Last Admin: 03/20/19 18:03 Dose: 20 mg Famotidine (Pepcid) 20 mg PO HS [facility] Last Admin: 03/20/19 21:42 Dose: 20 mg Finasteride (Proscar) 5 mg PO HS [facility] Last Admin: 03/20/19 21:42 Dose: 5 mg Home Med (Home Med) 1 unit PO TID [facility] Last Admin: 03/21/19 09:45 Dose: 1 unit Potassium Chloride/Dextrose/Sod Cl (Potassium Chl 10 Meq In D5-1/2ns) 1,000 mls @ 60 mls/hr IV .[id number] [facility] Last Admin: 03/21/19 10:16 Dose: 60 mls/hr Lactulose (Enulose) 10 gm PO BID [facility] Last Admin: 03/21/19 09:45 Dose: 10 gm Non-Formulary Medication (Fluticasone/Vilanterol [Breo Ellipta 100-25 Mcg Inh]) 1 puff IH QAM [facility] Last Admin: 03/21/19 09:46 Dose: Not Given Oxycodone HCl (Oxycodone Immediate Release Tab) 5 mg PO Q6H PRN PRN Reason: Pain, severe (8-10) Last Admin: 03/21/19 07:51 Dose: 5 mg Tamsulosin HCl (Flomax) 0.4 mg PO BID [facility] Last Admin: 03/21/19 09:45 Dose: 0.4 mg Tramadol HCl (Ultram) 50 mg PO TID PRN PRN Reason: Pain, moderate (4-7) Last Admin: 03/21/19 00:32 Dose: 50 mg - Labs Labs: 03/20/19 06:20 03/20/19 20:25 PT 11.9 SECONDS (9.4-12.5) 03/18/19 22:05 INR 1.07 03/18/19 22:05 APTT 27.2 Seconds (26.9-38.3) 03/18/19 22:05 - Constitutional Appears: No Acute Distress, Chronically Ill - Head Exam Head Exam: ATRAUMATIC, NORMOCEPHALIC - Eye Exam Eye Exam: EOMI. absent: Scleral icterus - ENT Exam ENT Exam: Mucous Membranes Moist - Neck Exam Neck Exam: Normal Inspection - Respiratory Exam Respiratory Exam: Clear to Ausculation Bilateral. absent: Rhonchi, Wheezes - Cardiovascular Exam Cardiovascular Exam: +S1, +S2. absent: Rubs - GI/Abdominal Exam GI & Abdominal Exam: Distended (mildly), Soft, Tenderness (mild diffuse) Additional comments: aspira catheter with fresh dressing, no drainage - Extremities Exam Extremities Exam: Normal Capillary Refill. absent: Calf Tenderness - Neurological Exam Neurological Exam: Alert, Awake, Oriented x3 - Skin Skin Exam: Dry, Warm Assessment and Plan - Assessment and Plan (Free Text) Assessment: 88-year-old male with a past medical history of asthma, BPH, hyperlipidemia, and stage IV pancreatic cancer who presented for malfunctioning aspira catheter. Plan: 1. Malfunctioning aspira catheter 2. Asthma 3. Hyperlipidemia 4. BPH 5. CAD 6. Constipation 7. Anemia of chronic disease 8. Transaminitis New stitch was placed by interventional radiologist with cessation of leakage. Was monitored overnight since then and had no more leakage. Plan today for some drainage with aspire catheter. Field Service Supervisor oncologist note reviewed and appreciated. Patient was started on oxycodone as needed. GI consultations appreciated. Continue with patient's atorvastatin, aspirin, Proscar, f amotidine, lactulose, Breo inhaler and Flomax. We will continue to follow while inpatient. Patient was seen and examined and case discussed with attending physician. <Kana Penaloza S - Last Filed: 03/21/19 18:06> Objective - Vital Signs/Intake and Output Vital Signs (last 24 hours): Temp Pulse Resp BP Pulse Ox 97.7 F 87 20 100/57 L 98 03/21/19 08:32 03/21/19 08:32 03/21/19 08:32 03/21/19 08:32 03/21/19 08:32 Intake and Output: 03/21/19 03/21/19 06:59 18:59 Intake Total 240 Balance 240 - Labs Labs: 03/20/19 06:20 03/20/19 20:25 PT 11.9 SECONDS (9.4-12.5) 03/18/19 22:05 INR 1.07 03/18/19 22:05 APTT 27.2 Seconds (26.9-38.3) 03/18/19 22:05 Assessment and Plan - Assessment and Plan (Free Text) Plan: Pt seen and examined by me. I have reviewed the note of the medical instructor and I agree with it. I have discussed the assessment and plan with the resident. I have reviewed the medications and the last labs.
--- NOTE | 2019-03-22 08:17 | PN ---
DATE: 03/21/2019 HOSPITAL COURSE: The patient was seen and examined. I do agree with the note of the er medical technician. I was involved in the plan of care. The patient had a malfunctioning catheter. The patient had stitches placed and he is feeling better. His leakage has improved. The patient is being followed by Oncology. I started the patient on oxycodone for pain. The patient is on Lipitor for dyslipidemia. The patient is on Proscar for his BPH. He is on aspirin for his coronary artery disease. He is receiving lactulose for his constipation. He is on Flomax for his BPH. He does have elevated LFTs which are chronic. I did speak to the patient's son at the bedside to give him update on the patient's diagnosis and plan of care today. The patient will most likely be discharged back home and followed up with his Oncologist Dr. Pearson. Kana Penaloza MD
== END 2019-03-21 17:16 | disposition home or self-care (01) | DRG 920 ==
LOC: ED 21:21 → ERH 22:22 → 3RNO 23:52 → OBSVTOIN 03-19 00:04
PROVIDERS: ADMIT Internal Medicine Nephrology; ATTEND Family Medicine
DX: T85.618A Breakdown (mechanical) of other specified internal prosthetic devices, implants and grafts, initial encounter (principal); C25.9 Malignant neoplasm of pancreas, unspecified; C78.7 Secondary malignant neoplasm of liver and intrahepatic bile duct; R18.0 Malignant ascites; E46 Unspecified protein-calorie malnutrition; J44.9 Chronic obstructive pulmonary disease, unspecified; K21.9 Gastro-esophageal reflux disease without esophagitis; I25.10 Atherosclerotic heart disease of native coronary artery without angina pectoris; N40.0 Benign prostatic hyperplasia without lower urinary tract symptoms; R62.7 Adult failure to thrive; D63.8 Anemia in other chronic diseases classified elsewhere; K59.00 Constipation, unspecified; E78.5 Hyperlipidemia, unspecified; R74.0 Nonspecific elevation of levels of transaminase and lactic acid dehydrogenase [LDH]; R94.5 Abnormal results of liver function studies; Y84.8 Other medical procedures as the cause of abnormal reaction of the patient, or of later complication, without mention of misadventure at the time of the procedure; Z79.82 Long term (current) use of aspirin; Z87.891 Personal history of nicotine dependence

== ENCOUNTER 2019-03-27 13:06 | Day surgery (SDC) | payer MEDICARE, BC ==
[2019-03-27 13:07] VITALS: BMI 26.2
[2019-03-27] MEDS ORDERED: Oxycodone/Acetaminophen 5/325 mg Tab PO STA (13:41)
--- NOTE | 2019-03-27 13:44 | ED PDOC ---
Arrival/HPI - General Chief Complaint: Abdominal Pain Time Seen by Provider: 03/27/19 13:09 Historian: Patient - History of Present Illness Narrative History of Present Illness (Text): 03/27/19 13:09 Patient is an 88 year old male, with a past medical history of metastatic pancreatic cancer and peritoneal catheter, who presents to the emergency department complaining of leaking peritoneal catheter since 2 days. Patient was evaluated by Dr. Clark for similar complaints last week and had additional stitch placed. Patient seen by oncologist today and was sent to the ED for further evaluation of complaint. Baseline complaints secondary to metastatic cancer but no new complaints. 03/27/19 14:52 Time/Duration: < week (2 days ) Symptom Onset: Sudden Activities at Onset: Light Context: Home Past Medical History - Provider Review Nursing Documentation Reviewed: Yes - Infectious Disease Hx of Infectious Diseases: None - Cardiac Hx Pacemaker: No - Pulmonary Hx Respiratory Disorders: Yes - Neurological Hx Neurological Disorder: No - HEENT Hx HEENT Disorder: No - Renal Hx Renal Disorder: No - Endocrine/Metabolic Hx Endocrine Disorders: No - Hematological/Oncological Hx Blood Disorders: Yes - Integumentary Hx Dermatological Disorder: No - Musculoskeletal/Rheumatological Hx Musculoskeletal Disorders: Yes - Gastrointestinal Hx Gastrointestinal Disorders: Yes - Genitourinary/Gynecological Hx Genitourinary Disorders: Yes Hx Prostate Problems: Yes - Psychiatric Hx Psychophysiologic Disorder: No Hx Substance Use: No - Surgical History Hx Appendectomy: Yes Hx Cardiac Catheterization: Yes Hx Coronary Stent: Yes - Anesthesia Hx Anesthesia: Yes Hx Anesthesia Reactions: No Hx Malignant Hyperthermia: No - Suicidal Assessment Feels Threatened In Home Enviroment: No Family/Social History - Physician Review Nursing Documentation Reviewed: Yes Family/Social History: No Known Family HX Smoking Status: Former Smoker Hx Alcohol Use: Yes (SOCIAL) Hx Substance Use: No Allergies/Home Meds Allergies/Adverse Reactions: Allergies No Known Allergies Allergy (Verified 03/18/19 21:36) Home Medications: Home Meds Medication Instructions Recorded Confirmed Aspirin [Adult Low Dose Aspirin EC] 81 mg PO QAM 05/18/18 03/18/19 Atorvastatin [Lipitor] 20 mg PO DAILY 05/18/18 03/18/19 Fluticasone/Vilanterol [Breo 1 puff IH QAM 05/18/18 03/18/19 Ellipta 100-25 Mcg INH] Umeclidinium [place] [Incruse 62.5 mcg IH QAM 05/18/18 03/18/19 Ellipta] Lipase/Protease/Amylase [Saumya Martinez 1 cap PO TID 06/14/18 03/18/19 24,000 Units Capsule] Finasteride 5 mg PO DAILY 03/02/19 03/18/19 Pyridoxine [Vitamin B6] 100 mg PO BID 03/02/19 03/18/19 Tamsulosin [Flomax] 0.4 mg PO DAILY 03/02/19 03/18/19 Lactulose [Constulose] 10 gm PO BID 03/08/19 03/18/19 Cholecalciferol (Vitamin D3) 1 cap PO DAILY 03/18/19 03/18/19 [Vitamin D3] Famotidine [Pepcid] 1 tab PO DAILY 03/18/19 03/18/19 Review of Systems - Physician Review All systems were reviewed & negative as marked: Yes - Review of Systems Constitutional: absent: Fevers Respiratory: absent: SOB, Cough Cardiovascular: absent: Chest Pain Gastrointestinal: Abdominal Pain (baseline cancer pain). absent: Diarrhea Genitourinary Male: Other (leaking peritoneal catheter). absent: Dysuria, Hematuria Physical Exam Vital Signs Reviewed: Yes Vital Signs Temp Pulse Resp BP Pulse Ox 03/27/19 13:21 98.5 F 97 H 18 94/66 L 99 Temperature: Afebrile Blood Pressure: Normal Pulse: Regular Respiratory Rate: Normal Appearance: Positive for: Cachectic Pain Distress: Moderate (secondary to cancer) Mental Status: Positive for: Alert and Oriented X 3 - Systems Exam Head: Present: Atraumatic, Normocephalic Pupils: Present: PERRL Extroacular Muscles: Present: EOMI Conjunctiva: Present: Normal Mouth: Present: Moist Mucous Membranes Neck: Present: Normal Range of Motion Respiratory/Chest: Present: Clear to Auscultation, Other (Mediport right upper chest). No: Respiratory Distress, Accessory Muscle Use Cardiovascular: Present: Regular Rate and Rhythm, Normal S1, S2. No: Murmurs, Rub, Gallop Abdomen: Present: Tenderness, Mass/Organomegaly (right sided ), Other (leaking peritoneal catheter to abdomen). No: Distention, Peritoneal Signs, Rebound, Guarding Back: Present: Normal Inspection Upper Extremity: Present: Normal Inspection. No: Cyanosis, Edema Lower Extremity: Present: Normal Inspection. No: Edema Neurological: Present: GCS=15, CN II-XII Intact, Speech Normal Skin: Present: Warm, Dry, Normal Color. No: Rashes Psychiatric: Present: Alert, Oriented x 3, Normal Insight, Normal Concentration Medical Decision Making ED Course and Treatment: Impression: Patient is an 88 year old male, with past medical history of pancreatic cancer with peritoneal catheter, who presents to the emergency department complaining of leaking peritoneal catheter. Plan: -- Consult with Dr. Calrk -- Oxycodone -- Reassess and disposition Prior Visits: Notes and results from previous visits were reviewed. Progress Notes: 03/27/19 13:43 Dr. Clark reporting that he will take patient to [facility] to remove catheter. Requesting hep block and clear liquids - RAD Interpretation Radiology Orders: 03/27/19 15:00 CAR PERIPHERAL VASCULAR ORDER [VASCULAR] Stat - Medication Orders Current Medication Orders: Discontinued Medications Oxycodone/Acetaminophen (Percocet 5/325 Mg Tab) 1 tab PO STAT STA Stop: 03/27/19 13:42 - Scribe Statement The provider has reviewed the documentation as recorded by the Scribe Sidney Riddle All medical record entries made by the Scribe were at my direction and personally dictated by me. I have reviewed the chart and agree that the record accurately reflects my personal performance of the history, physical exam, medical decision making, and the department course for this patient. I have also personally directed, reviewed, and agree with the discharge instructions and disposition. Disposition/Present on Arrival - Present on Arrival Any Indicators Present on Arrival: No History of DVT/PE: No History of Uncontrolled Diabetes: No Urinary Catheter: No History of Decub. Ulcer: No History Surgical Site Infection Following: None - Disposition Have Diagnosis and Disposition been Completed?: Yes Diagnosis: Complication of catheter Disposition: HOSPITALIZED Disposition Time: 13:45 Patient Plan: Observation ([facility]) Patient Problems: Current Active Problems Problem Status Onset Complication of catheter Acute Condition: FAIR Forms: [employer] (Lao)
[2019-03-27] MEDS ORDERED: Lidocaine PF 2% (5 ml) Inj (For Cardiac Arrhy) ONE (16:32)
[2019-03-27] MEDS ORDERED: Sodium Chloride 0.45% 1,000 ML IV SCH (16:45)
[2019-03-27 17:33] VITALS: RESP 20; TEMP 97.6
[2019-03-27 17:56] VITALS: BP 92/59; PULSE 80; O2SAT 96
--- NOTE | 2019-03-27 18:53 | VASCULAR ---
Date of service: 03/27/2019 PROCEDURE: Remove tunneled peritoneal catheter HISTORY: Metastatic pancreatic CA with malignant ascites. Previously placed tunneled peritoneal catheter. Persistent leaking at catheter insertion site. Removed tube. COMPARISON: TECHNIQUE: The relative risks and indications of the procedure were explained the patient and his son and consent obtained. The patient was placed supine on the arteriogram table and the tunneled catheter prepped and draped usual sterile fashion. 1 percent xylocaine was used anesthetize skin soft tissues. Conscious sedation monitoring were provided throughout the procedure by a nurse. The tunneled portion of the catheter was carefully dissected. The catheter was removed and a single interrupted suture placed at the exit site. The patient tolerated the procedure well. FINDINGS: IMPRESSION: Removal the patient's tunneled peritoneal catheter.
--- NOTE | 2019-03-28 11:44 | CARD ---
APPROVED REPORT Date of service: 03/27/2019 EKG Measurement Heart [id number] <Conclusion> Normal sinus rhythm with sinus arrhythmia Right bundle branch block Left anterior fascicular block Bifascicular block Cannot rule out Inferior infarct (masked by fascicular block?), age undetermined Abnormal ECG
== END 2019-03-27 18:25 | disposition home or self-care (01) ==
LOC: ED 13:06 → UNDOADMOB 15:05 → SDAVASINP 15:05 → SDS 17:05
PROVIDERS: ATTEND Radiology Vascular & Interventional Radiology
DX: T85.631A Leakage of intraperitoneal dialysis catheter, initial encounter (principal); C25.9 Malignant neoplasm of pancreas, unspecified; R18.0 Malignant ascites; I45.10 Unspecified right bundle-branch block
CPT/HCPCS: 49422; 84145; 93005; 99283; J1644; J3010

== ENCOUNTER 2019-04-01 17:05 | Inpatient (IN) | payer MEDICARE, BC ==
[2019-04-01 17:06] VITALS: BMI 26.2
[2019-04-01] MEDS ORDERED: Sodium Chloride 0.9% 500 ML IV STA ×2 (17:55→18:43)
[2019-04-01 18:22] LABS: BASO # 0.01 K/mm3 (0.0-2.0); BASO % 0.1 % (0.0-3.0); EOS % 0.3 % (1.5-5.0); HEMOGLOBIN 10.8 g/dL (14.0-18.0); LYMPH # 1.3 (1.2-3.4); LYMPH % 16.5 % (22.0-35.0); MEAN CELL VOLUME 83.8 fl (80.0-105.0); MEAN CORPUSCULAR HEMOGLOBIN 27.7 pg (25.0-35.0); MEAN PLATELET VOLUME 9.9 fl (7.0-11.0); MONO # 1.3 (0.1-0.6); MONO % 16.6 % (1.0-6.0); RBC 3.9 10^6/uL (3.5-6.1); RED CELL DISTRIBUTION WIDTH 18.8 % (11.5-14.5); WHITE BLOOD COUNT 7.9 10^3/uL (4.5-11.0)
[2019-04-01 18:28] LABS: INR 1.07; PARTIAL THROMBOPLASTIN TIME 30.7 Seconds (26.9-38.3); PROTHROMBIN TIME 11.9 SECONDS (9.4-12.5)
--- NOTE | 2019-04-01 18:34 | ED PDOC ---
Arrival/HPI - General Chief Complaint: GI Problem Historian: Patient, Family - History of Present Illness Narrative History of Present Illness (Text): 04/01/19 18:31 Patient is an 88 yo male with past medical history of metastatic pancreatic cancer, currently not receiving chemo, presents to the Emergency Department with history of progressive worsening abdominal pain, loss of appetite, and episodes of nausea and vomiting most recently prior to arrival. Patient does have chronic abdominal pain but family reports that he received Tramadol earlier today with some relief of pain but pain returned. They also report that over the past week the patient has been progressively weaker and today was unsteady on his feet with difficulty ambulating. He is typically able to ambulate without assistance at times. He has drainage from his right abdomen that is chronic after paracentesis tube was removed reportedly. Family does not report and change in character or appearance of drainage. No fevers reported. Patient has been able to move his bowels. Past Medical History - Infectious Disease Hx of Infectious Diseases: None - Cardiac Hx Pacemaker: No - Pulmonary Hx Respiratory Disorders: Yes - Neurological Hx Neurological Disorder: No - HEENT Hx HEENT Disorder: No - Renal Hx Renal Disorder: No - Endocrine/Metabolic Hx Endocrine Disorders: No - Hematological/Oncological Hx Blood Disorders: Yes - Integumentary Hx Dermatological Disorder: No - Musculoskeletal/Rheumatological Hx Musculoskeletal Disorders: Yes - Gastrointestinal Hx Gastrointestinal Disorders: Yes Other/Comment: pancreatic ca - Genitourinary/Gynecological Hx Genitourinary Disorders: Yes Hx Prostate Problems: Yes - Psychiatric Hx Psychophysiologic Disorder: No Hx Substance Use: No - Surgical History Hx Appendectomy: Yes Hx Cardiac Catheterization: Yes Hx Coronary Stent: Yes Other/Comment: abd pain , colostomy - Anesthesia Hx Anesthesia: Yes Hx Anesthesia Reactions: No Hx Malignant Hyperthermia: No - Suicidal Assessment Feels Threatened In Home Enviroment: No Family/Social History Family/Social History: Unknown Family HX Smoking Status: Former Smoker Hx Alcohol Use: Yes (SOCIAL) Hx Substance Use: No Allergies/Home Meds Allergies/Adverse Reactions: Allergies oxycodone Adverse Reaction (Verified 04/02/19 13:24) DIZZINESS Home Medications: Home Meds Medication Instructions Recorded Confirmed Aspirin [Adult Low Dose Aspirin EC] 81 mg PO QAM 05/18/18 04/01/19 Atorvastatin [Lipitor] 20 mg PO DAILY 05/18/18 04/01/19 Fluticasone/Vilanterol [Breo 1 puff [facility] 05/18/18 04/01/19 Ellipta 100-25 Mcg INH] Umeclidinium [place] [Incruse 62.5 mcg [facility] 05/18/18 04/01/19 Ellipta] Lipase/Protease/Amylase [Saumya Martinez 1 cap PO TID 06/14/18 04/01/19 24,000 Units Capsule] Finasteride 5 mg PO DAILY 03/02/19 04/01/19 Pyridoxine [Vitamin B6] 100 mg PO BID 03/02/19 04/01/19 Tamsulosin [Flomax] 0.4 mg PO DAILY 03/02/19 04/01/19 Lactulose [Constulose] 10 gm PO BID 03/08/19 04/01/19 Cholecalciferol (Vitamin D3) 1 cap PO DAILY 03/18/19 04/01/19 [Vitamin D3] Famotidine [Pepcid] 1 tab PO DAILY 03/18/19 04/01/19 Cyproheptadine [Periactin] 4 mg PO DAILY 03/29/19 04/01/19 traMADol [Ultram] 50 mg PO Q8H 03/29/19 04/01/19 Review of Systems - Review of Systems Constitutional: Fatigue, Weight Change. absent: Fevers Eyes: absent: Vision Changes, Photophobia, Eye Pain ENT: absent: Hearing Changes, Sore Throat Respiratory: SOB. absent: Cough Cardiovascular: WEBBER. absent: Chest Pain, Palpitations, Edema Gastrointestinal: Abdominal Pain, Nausea, Vomiting, Appetite Changes, Anorexia. absent: Constipation, Diarrhea, Hematochezia, Hematemesis, Food Intolerance Genitourinary Male: absent: Dysuria, Frequency Musculoskeletal: absent: Back Pain Skin: absent: Rash Neurological: Dizziness, Gait Changes, Speech Changes, Disequilibrium. absent: Headache, Focal Weakness Endocrine: absent: Polyuria Hemo/Lymphatic: absent: Easy Bleeding Physical Exam Vital Signs Reviewed: Yes Vital Signs Temp Pulse Resp BP Pulse Ox 04/01/19 17:18 98 F 100 H 20 88/43 L 95 Temperature: Afebrile Blood Pressure: Hypotensive Pulse: Tachycardic Appearance: Positive for: Ill-Appearing, Cachectic Pain Distress: Moderate Mental Status: Positive for: other (alert, answers questions, but is sleepy, easily arousable) - Systems Exam Head: Present: Atraumatic Pupils: No: Pinpoint Extroacular Muscles: Present: EOMI Conjunctiva: Present: Icteric Mouth: Present: Dry Pharnyx: No: ERYTHEMA, Uvular Deviation, Muffled/Hoarse Voice, Strider Nose (Internal): Present: No Active Bleeding Neck: Present: Normal Range of Motion. No: Meningeal Signs Respiratory/Chest: Present: Clear to Auscultation. No: Respiratory Distress Cardiovascular: Present: Murmurs, Tachycardic Abdomen: Present: Tenderness, Distention, Other (collection bag to abdomen with clear yellow ascitic fluid). No: Peritoneal Signs Rectal: No: Gross Blood Back: No: Midline Tenderness Upper Extremity: Present: Neurovascularly Intact. No: Edema Lower Extremity: Present: NORMAL PULSES, Neurovascularly Intact. No: Edema, CALF TENDERNESS Neurological: Present: Motor Func Grossly Intact, Other (sleepy but easily arousable, answers questions) Skin: Present: Pale Psychiatric: Present: Alert. No: Normal Concentration Medical Decision Making ED Course and Treatment: Patient's history was reviewed extensively with his family including son and daughter at bedside. Patient has been progressively weaker over a period of time with decreased appetite, difficulty ambulating. He has chronic abdominal pain but family has noted that it appears that pain is more difficult to control and he has been having complaints of more frequent abdominal pain which will improve initially with Tramadol but then return fairly quickly relative to past episodes. Family reports that he did tolerate some eating today but did have episode of vomiting/spitting up. No cough or aspiration noted, although patient does occasionally complain of shortness of breath without associated complaints of chest pain. Patient on initial exam with family appears to have diffuse lower abdominal pain. He denies fevers, denies diarrhea, denies urinary symptoms. Daughter drains his peritoneal drainage bag frequently, but notes that she has had to do this less frequently lately, and has noted any cloudiness or change in color of drainage. Patient has not been more distended in abdomen than usual. Patient reportedly "always has a low blood pressure". Clinically he appears dehydrated. IV fluid boluses given and patient with improvement in blood pressure to 90s SBP. He was given Tramadol and appeared to have initial relief of abdominal discomfort, although on re-exam, his abdominal pain returned, again in lower quadrants with no palpable upper abdominal pain. Turf Sales Person persistent pain which appears to be different in character, CT abdomen/pelvis ordered for further evaluation. On re-exam, patient's blood pressure improved, but remains hypotensive. Tachycardia improved. Continues to have no fever. Initial WBC unremarkable. Abdomen is soft, not signficantly distended, not tense, and with no peritoneal s igns. Troponin indeterminate. EKG with no acute changes. Patient denies chest pain, but with history of cardiac stents and hx of occasional dyspnea, will consult his box inspector. I reviewed history and exam and initial labs with Dr. Ruperto Tatum, who accepts patient to his service. Will consult Dr. Sinclair, patient's finance associate, and Dr. Clemente Abebe to assess for risk of sepsis. Although with serial exams, no fever, unremarkable WBC, not tachycardic. Will admit to monitored bed given cardiac risk factors as well as for blood pressure monitoring. UA pending at time of admission and CT abdomen/pelvis pending as of 1999, CT reading endorsed to Dr. Espino for review and communication with family. Differential diagnosis reviewed with family, as well as limitations of labs and imaging studies. Patient later complained of pain to left hip. He was re-examined, found to have point lateral tenderness with no posterior leg or calf pain or acute edema. FROM of hip and knee with no history of injury or trauma. NO erythema or ulcerations. Recommended serial exams. Care turned over to admitting team. - Lab Interpretations Lab Results: PT 11.9 SECONDS (9.4-12.5) 04/01/19 18:06 INR 1.07 04/01/19 18:06 APTT 30.7 Seconds (26.9-38.3) 04/01/19 18:06 - RAD Interpretation Radiology Orders: 04/01/19 17:55 CHEST PORTABLE [RAD] Stat - Medication Orders Current Medication Orders: Discontinued Medications Sodium Chloride (Sodium Chloride 0.9%) 500 mls @ 1,000 mls/hr IV .Q30M STA Stop: 04/01/19 18:24 Last Admin: 04/01/19 18:29 Dose: 1,000 mls/hr eMAR Start Stop Document 04/01/19 18:29 BB (Rec: 04/01/19 18:29 BB [id number]) Intravenous Solution Start Date 04/01/19 Start Time 18:29 Ondansetron HCl (Zofran Inj) 4 mg IVP ONCE ONE Stop: 04/01/19 17:57 Last Admin: 04/01/19 18:30 Dose: 4 mg IVP Administration Document 04/01/19 18:30 BB (Rec: 04/01/19 18:30 BB [id number]) Charges for Administration # of IVP Administrations 1 Tramadol HCl (Ultram) 50 mg PO STAT STA Stop: 04/01/19 17:56 Last Admin: 04/01/19 18:29 Dose: 50 mg MAR Pain Assessment Document 04/01/19 18:29 BB (Rec: 04/01/19 18:30 [id number]) Pain Reassessment Is this a pain reassessment? No Sleep Is patient sleeping during reassessment? No Presence of Pain Presence of Pain Yes Location Pain Location Body Site Abdomen Description Description Constant Intensity of Pain at present 5 Pain Behavior Grasping Site Rubbing Site Restlessness Refusal to Eat Facial Grimacing Disposition/Present on Arrival - Present on Arrival Any Indicators Present on Arrival: No History of DVT/PE: No History of Uncontrolled Diabetes: No Urinary Catheter: No History of Decub. Ulcer: No History Surgical Site Infection Following: None - Disposition Have Diagnosis and Disposition been Completed?: Yes Diagnosis: Abdominal pain, Hypotension, Dyspnea, Pancreatic cancer, Loss of appetite Disposition: HOSPITALIZED Disposition Time: 19:30 Patient Plan: Admission, Telemetry Patient Problems: Current Active Problems Problem Status Onset Abdominal pain Acute Dyspnea Acute Hypotension Acute Loss of appetite Acute Pancreatic cancer Acute Condition: SERIOUS
[2019-04-01 18:45] LABS: TROPONIN I 0.11 ng/mL
[2019-04-01 19:28] LABS: ALB/GLOB RATIO 0.9 (1.1-1.8); ALBUMIN 2.9 g/dL (3.0-4.8); ALT/SGPT 186 U/L (7-56); AST/SGOT 191 U/L (17-59); BLOOD UREA NITROGEN 31 mg/dL (7-21); GFR NON-AFRICAN AMERICAN > 60
[2019-04-01] MEDS ORDERED: Morphine 2 mg/ml ISec IVP PRN (20:34)
[2019-04-01] MEDS ORDERED: Sodium Chloride 0.9% 1,000 ML IV STA (21:33)
[2019-04-02 06:45] LABS: BASO # 0.01 K/mm3 (0.0-2.0); BASO % 0.1 % (0.0-3.0); EOS % 0.6 % (1.5-5.0); HEMOGLOBIN 10.2 g/dL (14.0-18.0); LYMPH # 1.1 (1.2-3.4); LYMPH % 15.3 % (22.0-35.0); MEAN CELL VOLUME 84.3 fl (80.0-105.0); MEAN CORPUSCULAR HEMOGLOBIN 27.6 pg (25.0-35.0); MEAN CORPUSCULAR HGB CONC 32.8 g/dl (31.0-37.0); MEAN PLATELET VOLUME 9.8 fl (7.0-11.0); MONO # 1.1 (0.1-0.6); MONO % 15.3 % (1.0-6.0); RBC 3.69 10^6/uL (3.5-6.1); RED CELL DISTRIBUTION WIDTH 18.4 % (11.5-14.5); WHITE BLOOD COUNT 7.1 10^3/uL (4.5-11.0)
[2019-04-02 07:08] LABS: ALT/SGPT 150 U/L (7-56)
[2019-04-02 07:43] LABS: ALB/GLOB RATIO 0.9 (1.1-1.8); ALBUMIN 2.6 g/dL (3.0-4.8); AST/SGOT 138 U/L (17-59); BLOOD UREA NITROGEN 26 mg/dL (7-21); CALCIUM 8.5 mg/dL (8.4-10.5); GFR NON-AFRICAN AMERICAN > 60
--- NOTE | 2019-04-02 08:45 | RAD ---
Date of service: 04/01/2019 HISTORY: sob COMPARISON: Chest radiograph dated 03/18/2019; PET-CT dated 01/11/2019. TECHNIQUE: 1 view obtained. FINDINGS: LUNGS: Stable chronic prominence of the bilateral interstitial markings with superimposed pulmonary vascular congestion not excluded. No focal consolidation. Multiple right lung nodular opacities. PLEURA: No significant pleural effusion identified, no pneumothorax apparent. CARDIOVASCULAR: Aortic atherosclerotic calcifications. Cardiomediastinal silhouette within normal limits OSSEOUS STRUCTURES: Unchanged. VISUALIZED UPPER ABDOMEN: Normal. OTHER FINDINGS: Right internal jugular access central venous catheter, unchanged. IMPRESSION: No active disease. Multiple right lung nodular opacities.
--- NOTE | 2019-04-02 10:27 | CT ---
Date of service: 04/01/2019 PROCEDURE: CT Abdomen and Pelvis without intravenous contrast HISTORY: diffuse lower abdominal pain COMPARISON: None. TECHNIQUE: Contiguous images were obtained from the domes of the diaphragms to the upper thighs without the administration of intravenous contrast. Oral contrast was not administered. Radiation dose: Total exam DLP = 721.08 mGy-cm. This CT exam was performed using one or more of the following dose reduction techniques: Automated exposure control, adjustment of the mA and/or kV according to patient size, and/or use of iterative reconstruction technique. FINDINGS: LOWER THORAX: Partially imaged chest port catheter with tip terminating at the cavoatrial junction. Cardiomegaly. Coronary arterial and valvular calcifications. Multiple bibasilar pulmonary nodules, which appear to be less in number compared to the prior study. LIVER: Stable dominant right hepatic mass measuring 6.2 x 4.1 cm. Additional hepatic dome mass measuring 2.5 cm. Probable intrahepatic ductal dilatation, although evaluation is limited in the absence of intravenous contrast. GALLBLADDER AND BILE DUCTS: Distended gallbladder with dilated CBD, unchanged. PANCREAS: Low density area at the pancreatic body junction, cannot be discretely measured without intravenous contrast SPLEEN: Unremarkable. ADRENALS: Unremarkable. No mass. KIDNEYS AND URETERS: Unremarkable. No hydronephrosis. No solid mass. VASCULATURE: Unremarkable. No aortic aneurysm. Aortic atherosclerotic calcifications BOWEL: Small hiatal hernia. Thickening of the cecum, ascending and transverse colon to the splenic flexure. APPENDIX: No findings to suggest acute appendicitis. PERITONEUM: Small to moderate perihepatic ascites. Trace perisplenic ascites. Small amount of fluid in the pelvis. Moderate left fat containing inguinal hernia. LYMPH NODES: Unremarkable. No enlarged lymph nodes. BLADDER: Unremarkable. REPRODUCTIVE: Unremarkable. BONES: No acute fracture. OTHER FINDINGS: None. IMPRESSION: Infectious/inflammatory colitis extending from the cecum to the splenic flexure. This finding was not reported by tele radiology. Redemonstration of low-attenuation mass at the head neck junction of the pancreas. Discrete measurements are difficult in the absence of intravenous contrast. Increase in amount of perihepatic ascites. Trace perisplenic ascites. Small volume pelvic ascites. Multiple bibasilar pulmonary nodules, which may be less in number compared to the prior study. Additional stable findings as above.
--- NOTE | 2019-04-02 10:38 | CP.PCM.CON ---
History of Present Illness - History of Present Illness History of Present Illness: Awake, no distress Reason for consultation: Cardiac evaluation due to indeterminate troponin, history of pancreatic cancer Brief history of present illness; An 88 year old male who was brought to the ER due to progressive worsening abdominal pain, loss of appetite,nausea and vomiting. Patient does have chronic abdominal pain but family reports that he takes Tramadol but this time with no relief.Son reports that over the past week the patient has been progressively weaker and unsteady on his feet with difficulty ambulating. He typically able to ambulate without assistance. History of metastatic pancreatic cancer with liver metastasis, had chemotherapy, bilateral inguinal hernia repair, chronic anemia, COPD, former smoker,recurrent ascites, with peritoneal catheter last paracentesis 02/22/19, coronary artery disease post stents, hypertension,hyperlipidemia. Consult was called for indeterminate troponin. Seen and examined by me and Dr. Verma Review of Systems - Review of Systems All systems: reviewed and no additional remarkable complaints except Review of Systems: as per HPI Past Patient History - Infectious Disease Hx of Infectious Diseases: None - Past Medical History & Family History Past Medical History?: Yes - Past Social History Smoking Status: Former Smoker - CARDIAC Hx Pacemaker: No - PULMONARY Hx Respiratory Disorders: Yes - NEUROLOGICAL Hx Neurological Disorder: No - HEENT Hx HEENT Problems: No - RENAL Hx Chronic Kidney Disease: No - ENDOCRINE/METABOLIC Hx Endocrine Disorders: No - HEMATOLOGICAL/ONCOLOGICAL Hx Blood Disorders: Yes - INTEGUMENTARY Hx Dermatological Problems: No - MUSCULOSKELETAL/RHEUMATOLOGICAL Hx Musculoskeletal Disorders: Yes Hx Falls: No - GASTROINTESTINAL Hx Gastrointestinal Disorders: Yes Other/Comment: pancreatic ca - GENITOURINARY/GYNECOLOGICAL Hx Genitourinary Disorders: Yes Hx Prostate Problems: Yes - PSYCHIATRIC Hx Psychophysiologic Disorder: No - SURGICAL HISTORY Hx Appendectomy: Yes Hx Cardiac Catheterization: Yes Hx Coronary Stent: Yes Other/Comment: abd pain , colostomy - ANESTHESIA Hx Anesthesia: Yes Hx Anesthesia Reactions: No Hx Malignant Hyperthermia: No Meds Allergies/Adverse Reactions: Allergies Allergy/AdvReac Type Severity Reaction Status Date / Time No Known Allergies Allergy Verified 03/18/19 21:36 - Medications Medications: Current Medications Aspirin (Ecotrin) 81 mg PO DAILY [facility] Last Admin: 04/02/19 09:46 Dose: 81 mg Famotidine (Pepcid) 20 mg PO 1000,2200 [facility] Last Admin: 04/02/19 09:46 Dose: 20 mg Sodium Chloride (Sodium Chloride 0.9%) 1,000 mls @ 60 mls/hr IV .[id number] STA Stop: 04/02/19 14:12 Last Admin: 04/01/19 21:40 Dose: 60 mls/hr Morphine Sulfate (Morphine) 2 mg IVP Q4 PRN PRN Reason: Pain, severe (8-10) Non-Formulary Medication (Fluticasone/Vilanterol [Breo Ellipta 100-25 Mcg Inh]) 1 puff IH QAM MAYRA Ondansetron HCl (Zofran Inj) 4 mg IVP Q6 PRN PRN Reason: Nausea/Vomiting Tramadol HCl (Ultram) 50 mg PO Q8 PRN PRN Reason: Pain, moderate (4-7) Last Admin: 04/02/19 05:50 Dose: 50 mg Physical Exam - Constitutional Appears: Non-toxic, No Acute Distress - Head Exam Head Exam: NORMAL INSPECTION, NORMOCEPHALIC - ENT Exam ENT Exam: Mucous Membranes Dry - Respiratory Exam Respiratory Exam: Decreased Breath Sounds, NORMAL BREATHING PATTERN - Cardiovascular Exam Cardiovascular Exam: REGULAR RHYTHM, +S1, +S2 - GI/Abdominal Exam GI & Abdominal Exam: Normal Bowel Sounds, Soft Additional comments: right peritoneal drainage catheter (post paracentesis) - Extremities Exam Extremities exam: Positive for: full ROM, normal capillary refill - Neurological Exam Neurological exam: Alert - Psychiatric Exam Psychiatric exam: Normal Affect, Normal Mood - Skin Skin Exam: Dry, Normal Color, Warm Results - Vital Signs Recent Vital Signs: Last Vital Signs Temp 98.3 F 04/02/19 06:00 Pulse 80 04/02/19 06:00 Resp 18 04/02/19 06:00 BP 94/54 L 04/02/19 06:00 Pulse Ox 92 L 04/02/19 06:00 - Labs Result Diagrams: 04/02/19 06:30 04/02/19 06:30 Labs: Laboratory Results - last 24 hr 04/01/19 04/01/19 04/01/19 18:06 18:06 18:06 WBC 7.9 RBC 3.90 Hgb 10.8 L Hct 32.7 L MCV 83.8 MCH 27.7 MCHC 33.0 RDW 18.8 H Plt Count 278 MPV 9.9 Neut % (Auto) 66.5 Lymph % (Auto) 16.5 L [place] % (Auto) 16.6 H Eos % (Auto) 0.3 L Baso % (Auto) 0.1 Lymph # (Auto) 1.3 [place] # (Auto) 1.3 H Eos # (Auto) 0.0 Baso # (Auto) 0.01 Absolute Neuts (auto) 5.26 PT 11.9 INR 1.07 APTT 30.7 Sodium 130 L Potassium 5.0 Chloride 97 L Carbon Dioxide 26 Anion Gap 12 BUN 31 H Creatinine 0.9 Est GFR ( Amer) > 60 Est GFR (Non-Af Amer) > 60 Random Glucose 118 H Calcium 9.0 Total Bilirubin 1.7 H AST 191 H D ALT 186 H Alkaline Phosphatase 1897 H Ammonia Lactate Dehydrogenase 556 Total Creatine Kinase < 20 L Troponin I 0.11 D Total Protein 6.1 Albumin 2.9 L Globulin 3.2 Albumin/Globulin Ratio 0.9 L 04/01/19 04/02/19 04/02/19 18:06 06:30 06:30 WBC 7.1 RBC 3.69 Hgb 10.2 L Hct 31.1 L MCV 84.3 MCH 27.6 MCHC 32.8 RDW 18.4 H Plt Count 255 MPV 9.8 Neut % (Auto) 68.7 H Lymph % (Auto) 15.3 L [place] % (Auto) 15.3 H Eos % (Auto) 0.6 L Baso % (Auto) 0.1 Lymph # (Auto) 1.1 L [place] # (Auto) 1.1 H Eos # (Auto) 0.0 Baso # (Auto) 0.01 Absolute Neuts (auto) 4.85 PT INR APTT Sodium 130 L Potassium 4.8 Chloride 99 Carbon Dioxide 26 Anion Gap 10 BUN 26 H Creatinine 0.7 L Est GFR ( Amer) > 60 Est GFR (Non-Af Amer) > 60 Random Glucose 99 Calcium 8.5 Total Bilirubin 1.6 H AST 138 H D ALT 150 H Alkaline Phosphatase 1718 H Ammonia 34 H D Lactate Dehydrogenase Total Creatine Kinase Troponin I Total Protein 5.5 L Albumin 2.6 L Globulin 2.9 Albumin/Globulin Ratio 0.9 L Assessment & Plan - Assessment and Plan (Free Text) Assessment: An 88 year old male who was brought to the ER due to progressive worsening abdominal pain, loss of appetite,nausea and vomiting. Patient does have chronic abdominal pain but family reports that he takes Tramadol but this time with no relief.Son reports that over the past week the patient has been progressively weaker and unsteady on his feet with difficulty ambulating. He typically able to ambulate without assistance. History of metastatic pancreatic cancer with liver metastasis, had chemotherapy, bilateral inguinal hernia repair, chronic anemia, COPD, former smoker,recurrent ascites, with peritoneal catheter last paracentesis 02/22/19, coronary artery disease post stents, hyperten analilia,hyperlipidemia. Consult was called for indeterminate troponin. He had cardiac cath on 05/13/2015 and showed 2 vessel disease of RCA and LAD. Successful PTCA of LAD was done and Staged PTCA with NORMA of RCA and POBA of distal RCA done on 06/10/15. Troponin 0.11, indeterminate, Abdominal discomfort, on Toradol. EKG normal sinus rhythm with frequent PVC's and APC's. right bundle branch block. Will treat medically. Clinically patient is not having chest pain or shortness of breath. Rule out acute coronary syndrome. Cardiac status stable. Pain management. Will order echo to evaluate LV function. Plan: No distress, denies chest pain Heart rate and blood pressure stable Cardiac status stable Will order echo to evaluate LV function Continue current treatment Continue current medications Pain management Will follow up Plan and treatment discussed with Dr. Verma Thank you Dr. Tatum for the opportunity of taking care of Raymundo Godoy - Date & Time Date: 04/02/19 Time: 06:35
[2019-04-02] MEDS ORDERED: Home Med 1 UNIT IH SCH (10:45)
--- NOTE | 2019-04-02 10:48 | CARD ---
APPROVED REPORT Date of service: 04/01/2019 EKG Measurement Heart [id number] <Conclusion> Sinus rhythm with frequent premature ventricular complexes and premature atrial complexes Right bundle branch block Abnormal ECG
[2019-04-02] MEDS: Vancomycin 1gm in NS 250ml 1 GM/250 ML BAG IVPB SCH ×2 (12:43→23:49)
[2019-04-02] MEDS ORDERED: Sodium Chloride 0.9% 1,000 ML IV STA (13:22)
[2019-04-02] MEDS ORDERED: Morphine 2 mg/ml ISec IVP PRN (13:22)
[2019-04-02] MEDS ORDERED: Piperacill/Tazo 4.5gm in NS 4.5 GM/100 ML BAG IVPB SCH (14:00)
[2019-04-02 16:29] LABS: URINE BILIRUBIN SMALL (NEGATIVE); URINE BLOOD NEGATIVE (NEGATIVE); URINE GLUCOSE (UA) NEGATIVE (NEGATIVE); URINE LEUKOCYTE ESTERASE NEGATIVE Leu/uL (NEGATIVE); URINE PROTEIN TRACE mg/dL (<30 mg/dL)
[2019-04-02 16:35] LABS: URINE APPEARANCE CLEAR (CLEAR); URINE COLOR YELLOW (YELLOW)
[2019-04-02 16:43] LABS: URINE RBC 0 - 2 /hpf (0-2); URINE WBC 0 - 2 /hpf (0-6)
[2019-04-02] MEDS: Amylase/Lipase/Protease 5,000 Units ECC PO SCH (17:03)
--- NOTE | 2019-04-02 21:06 | CON ---
DATE: 04/02/2019 LOCATION: The patient seen earlier today in 277, bed 2. CHIEF COMPLAINT: Weakness, poor appetite and abdominal discomfort times several days. HISTORY OF PRESENT ILLNESS: This is an 88-year-old male with a history of pancreatic cancer, stage IV with metastasis, status post chemotherapy, admitted with worsening abdominal pain, poor appetite, episode of nausea and vomiting. The patient usually has abdominal pain. The patient's son is at the bedside, he states that now his abdominal pain has gotten worse. He has had weakness and unable to eat and continues to deteriorate. Has not had chemotherapy for the past 3 to 4 weeks, and is in low-grade fevers, no chills. PAST MEDICAL HISTORY: Significant for prostate disease, metastatic stage IV pancreatic cancer, coronary artery disease, hyperlipidemia, and chronic obstructive lung disease. PAST SURGICAL HISTORY: Significant for appendectomy, cardiac catheterization with stent placement. ALLERGY: THE PATIENT HAS NO KNOWN ALLERGIES. MEDICATIONS AT HOME: Noted and reviewed include oxycodone, Pepcid, atorvastatin, aspirin and tramadol. REVIEW OF SYSTEMS: A 12-point review of systems is performed. PHYSICAL EXAMINATION: GENERAL: The patient is in bed, appearing chronically ill and weak. VITAL SIGNS: Temperature of 98, pulse of 100, respiratory rate of 20, and blood pressure of 94/54, it was as low as 88 blood pressure when he came in. HEENT: Reveals temporal wasting. NECK: Supple. LUNGS: Decreased breath sounds. HEART: Normal S1 and S2. ABDOMEN: Soft and nontender. No rebound. No guarding. No masses. LABORATORY DATA: Laboratory examination reveals a white count of 7.9, hemoglobin of 10, and platelets of 279. Coagulation is noted. Chemistries reveal a BUN of 31, creatinine of 0.9. LFTs are elevated, alk phos is 97, and microbiology is pending. The patient had a CAT scan of the abdomen and pelvis. The patient also has a right-sided Port-A-Cath, distended gallbladder and dilated common bile duct, hepatic metastasis, liver metastasis, lung metastasis. The patient's chest x-ray noted with multiple nodules. Cardiology consultation is reviewed. ASSESSMENT AND PLAN: An 88-year-old male with: 1. Severe sepsis with tachycardia, dyspnea, weakness, probable biliary obstruction as the source versus spontaneous bacterial peritonitis. We will treat the patient with Zosyn. I doubt bacteremia from the Port-A-Cath also always in a differential. We will order blood cultures and we will order Zosyn and vancomycin and pending julian culture results, gastrointestinal evaluation. Overall, prognosis is quite poor for this patient. End-stage malignancy. Should consider hospice setting. We will follow with you. Toby Abebe MD
[2019-04-02] MEDS: Piperacill/Tazo 4.5gm in NS 4.5 GM/100 ML BAG IVPB SCH (21:14)
--- NOTE | 2019-04-02 22:59 | CON ---
DATE: 04/02/2019 PULMONARY CONSULTATION We were asked by Dr. Tatum, hunter to evaluate and treat. This is an 88-year-old white male, who is well known to our service from prior admission. I have examined the patient at bedside with his daughter present at bedside. HISTORY OF PRESENT ILLNESS: This 88-year-old with past medical history of metastatic pancreatic cancer and currently not on chemotherapy, came to the emergency room with progressive worsening abdominal pain, loss of appetite and episodes of nausea and vomiting. The patient has chronic obstructive pulmonary disease, which he is well know to our service and he is receiving Breo and Incruse inhalers at home. He did not complained of excessive cough, sputum production or hemoptysis on admission. ADDITIONAL PAST MEDICAL HISTORY: History of coronary artery disease, status post stenting. FAMILY HISTORY: Negative for inherited diseases. SOCIAL HISTORY: Former smoker. Does not use alcohol. Does not use illicit drugs. ALLERGIES: NO KNOWN ALLERGIES. HOME MEDICATIONS: Reviewed by me and in addition to Breo Incruse, he takes cardiac medication and pain medication. REVIEW OF SYSTEMS: Review of systems was conducted by reviewing all sources. CONSTITUTIONAL: Positive for fatigue, weight loss, absent fevers. EARS, NOSE AND THROAT: Negative. RESPIRATORY: Complains of shortness of breath with no cough. CARDIOVASCULAR: No current chest pain or palpitations. GASTROINTESTINAL: See history of present illness. The rest of the systems were reviewed and found to be negative. PHYSICAL EXAMINATION VITAL SIGNS: His temperature is 98, pulse 100, respirations are 20, blood pressure 98/43 and pulse oximetry is 95% on nasal cannula. HEENT: Head is normocephalic and atraumatic. NECK: Supple. There is no jugular vein distentions. CARDIOVASCULAR: S1 and S2. No S3, regular. PULMONARY: Diminished breath sounds at both lung bases with prolonged expiration. No wheezing. GASTROINTESTINAL: Soft and nontender. No organomegaly. : Within normal limits EXTREMITIES: No pedal edema. No cyanosis. SKIN: Clear with no skin rashes. NEUROLOGIC: No focal deficits. LABORATORY DATA: Chest x-ray was ordered in the emergency room reported negative which I am planning to review it, I am unable to get it on the screen. The chest x-ray demonstrates general demineralization due to age. His cardiac silhouette is not enlarged. The hilar areas appeared prominent. There are no infiltrates or effusion. There are some fluffy opacities in perihilar regions. The patient also had a CT scan of abdomen and pelvis, that was reviewed by me. Lower thorax demonstrates multiple bibasilar pulmonary nodules, which did not increase since the last either may there is few diminished nodules noted. CT of the liver demonstrates dominant hepatic mass. ASSESSMENT: 1. Chronic obstructive pulmonary disease. 2. Metastatic pancreatic cancer. 3. Pulmonary nodules suspicious for metastatic disease; however not increased in number or size. PLAN: The patient's chronic obstructive pulmonary disease does not appear to be exacerbated. I will continue with his Breo and Incruse. At this point, supplemental oxygen will be administered if the oxygen saturation drops below 92. Nebulizer treatments p.r.n. We will recheck as needed. Darrion Cadet MD [facility]
--- NOTE | 2019-04-03 00:45 | HP ---
DATE OF EXAM: 04/02/2019 This is [facility] admission to the Telemetry floor. For Dr. Pearson. CHIEF COMPLAINT: Abdominal pain, severe weakness. HISTORY OF PRESENT ILLNESS: The patient is an 88-year-old male with known pancreatic cancer with liver invasion, recurrent ascites, status post recent removal of peritoneal catheter after a leakage, admitted via the emergency room with a history of progressive worsening abdominal pain, loss of appetite, severe weakness so that the patient wants to sleep all the time according to family members, episodes of nausea and vomiting. His daughter is at the bedside with tramadol initially helping with the pain; however, no longer effective. He has been getting progressively weaker in the past few days and is unsteady on his feet, ambulates with difficulty, and needs to lie down all the time as per his daughter. He does have a drainage bag to the abdominal wall as the site of the catheter continues to leak periodically. With this, the patient is also not able to take oxycodone due to mental status change and we will put this down as an allergy with a trial of 1 mg of morphine for severe pain parenterally and continuation of the tramadol as needed. ALLERGY: TO OXYCODONE WITH MENTAL STATUS CHANGE. MEDICATIONS: At this point include Lipitor, Incruse Ellipta, Breo Ellipta, Ecotrin, Pancrease, Flomax, Vitamin B6, finasteride, lactulose, Pepcid, Vitamin D, tramadol and Marinol, which was recently started by Dr. Pearson with Periactin discontinued. PAST MEDICAL HISTORY: Significant for a stage IV pancreatic cancer with invasion to the liver, on chemotherapy, now on hold, status post stenting in his heart, ASCVD, GERD, bilateral inguinal herniae, anemia of chronic disease, intractable pain of cancer, COPD, gait disturbance, hyperlipidemia, failure to thrive, BPH, hepatic encephalopathy. FAMILY HISTORY AND SOCIAL HISTORY: The patient quit smoking 20 years ago, smoked for about 50 years prior to this, at least a pack a day; quit also years ago. The son and daughter are at the bedside, alive and well; otherwise, noncontributory. REVIEW OF SYSTEMS: A 12-point review of systems was done and is negative to questions except for items mentioned in the history of present illness. OBJECTIVE PHYSICAL EXAMINATION VITAL SIGNS: Temperature of 98.2, pulse of 80, respirations of 20, blood pressure is 83/54, pulse ox of 92%. HEENT: Unremarkable. Tongue is moist. Neck is supple. HEART: Regular rate, occasional ectopic beats. LUNGS: Normal decreased breath sounds, otherwise clear. ABDOMEN: Minimally distended with a collection bag on the abdomen where a peritoneal catheter has been discontinued with persistent drainage since with a faint positive ascitic fluid with tenderness to the left mid epigastrium to general palpation. EXTREMITIES: Faint +1 edema. NEUROLOGIC: Somnolent, awake and alert. SKIN: Warm and dry. LABORATORY DATA: The patient's labs were done, white blood cell count 7.1, hemoglobin 10.2, hematocrit 31.1, platelet count 255,000 with a metabolic panel showing a sodium of 130 with a chloride of 99, now improved after normal saline being infused, BUN down from 31 to 26 this morning with a creatinine of 0.7. Nonfasting glucose of 99. Total bilirubin of 1.6, AST of 138 down from 191 earlier yesterday, ALT of 150 down from 186 with an alk phos value of 1718, ammonia value of 34, total protein of 5.5, albumin of 2.6. Previous testing showed a CA value of 38.2. INR of 1.07. Urinalysis was to be done. The patient's testing included a chest x-ray done yesterday, it was read as no active disease, multiple right lung nodular opacities. An EKG was done yesterday and it was read as sinus rhythm with frequent PVCs and premature atrial complexes, right bundle-branch block, abnormal EKG, read by Dr. Verma who was seeing the patient. He did have a CT scan of the abdomen and pelvis without contrast done yesterday, it showed infectious/inflammatory colitis extending from the cecum to the splenic flexure, finding was not reported on the radiology. Redemonstration of low attenuation mass in the head and neck junction of the pancreas, discrete measurements are difficult in the absence of intravenous contrast, increase in the amount of perihepatic ascites, trace perisplenic ascites, small volume pelvic ascites, multiple bibasilar pulmonary nodules, which may be less in number compared to prior study, additional stable findings as above with a distended gallbladder, dilated common bile duct unchanged and with a stable dominant right hepatic mass, cardiomegaly. ASSESSMENT: 1. Infectious/inflammatory colitis. 2. Intractable pain of cancer. 3. Stage IV pancreatic cancer with liver metastasis with abnormal liver function testing. 4. Ascites. 5. Chronic obstructive pulmonary disease. 6. Gastroesophageal reflux disease. 7. Anemia of chronic disease. 8. Atherosclerotic cardiovascular disease status post stenting. 9. Failure to thrive. 10. Bradydysrhythmia. 11. Gastroesophageal reflux disease. 12. Benign prostatic hypertrophy. 13. Gait disturbance. 14. Ascites. 15. Questionable depression. 16. Elevated troponin, intermediate. PLAN: After conversation with Dr. Peasron, he was admitted to the Telemetry floor. Also the patient did have lab values including a troponin of 0.11, which is considered indeterminate with no cardiac symptoms at this time for which Telemetry will be continued and consult with Dr. Verma, Cardiology. Plan for this patient is to admit to the Telemetry floor. We will ask for consults with Cardiology, Infectious Disease Dr. Abebe, Gastroenterology Dr. Sinclair and Pulmonary Dr. Light. We will continue with the present medical regimen. We will restart Marinol along with clear liquids for now, with advancement as per Dr. Sinclair with antibiotics as per Dr. Abebe with low-flow IV fluids, normal saline at 50 mL/hour with Tylenol for mild pain, tramadol for moderate pain and a trial should he elect to try of morphine 1 mg IV every 4 hours for severe pain. We will monitor clinically and with labs with his lactulose to continue and an ammonia level to be repeated in the morning. This is a complex patient with a comprehensive medically necessary and appropriate visit carried out in excess of 95 minutes with the patient and his family members' questions answered to their satisfaction with the patient's case discussed with Dr. Abebe and nursing staff. Ruperto Tatum MD
--- NOTE | 2019-04-03 01:18 | CON ---
GASTROENTEROLOGY CONSULTATION DATE: 04/02/2019 REQUESTING PHYSICIAN: Dr. Tatum. 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 The patient was weak at home, unable to stand. His oral intake has been poor. He has some nausea and occasional vomiting, but he denies diarrhea. CT scan of the abdomen performed here in the hospital shows a mass in the neck and body of the pancreas with 2 large liver lesions, distended gallbladder with gallstones, ascites and some nonspecific mural thickening of the right colon. The patient admits to occasional left lower quadrant abdominal pain.. He has chronic drainage from a prior paracentesis site, which is now covered by ostomy bag to collect the ascites fluid. PAST MEDICAL HISTORY: As above. Again, he has a history of stage IV pancreatic cancer with liver metastasis, malignant ascites, coronary artery disease with stent. SOCIAL HISTORY: He is a former cigarette smoker having smoked up to 2 packs per day for many years. He consumes alcohol socially. FAMILY HISTORY: Noncontributory. REVIEW OF SYSTEMS: A 14-point review of systems is notable for abdominal pain, nausea, vomiting, weakness, poor oral intake. MEDICATIONS AT HOME: Include aspirin, Lipitor, Breo, Incruse Ellipta, Pancrease, finasteride, vitamin B6, Flomax, lactulose, vitamin D3, Pepcid, Periactin, and Ultram. PHYSICAL EXAMINATION: GENERAL: Elderly male, appearing chronically ill, comfortable. VITAL SIGNS: Reveal blood pressure of 83/45, temperature of 98, heart rate 98.2, BMI 23.5. HEENT: Reveal sclerae to be white. Conjunctivae pale. He has bitemporal wasting. NECK: Supple. CHEST: Reveals distant breath sounds. HEART: Reveals regular rate and rhythm. ABDOMEN: Soft. Mild left lower quadrant tenderness. He has an ostomy bag in his right lower quadrant to collect ascites fluid. EXTREMITIES: Show muscle wasting with no pedal edema. LABORATORY DATA: Reveal white blood cell count 7.1, hemoglobin 10.2. Chemistries reveal BUN 26, creatinine 0.7, total bilirubin 1.6, AST 138, ALT 50, alkaline phosphatase is 952. IMPRESSION: An 88-year-old male with stage IV pancreatic cancer, malignant ascites, abdominal pain, weakness, poor oral intake. CT scan of the abdomen reveals a mass in the neck and body of the pancreas as well as liver metastasis, distended gallbladder with gallstones, and nonspecific mural thickening of the ascending colon. Clinically, the patient does not have colitis. He does not have diarrhea. RECOMMENDATIONS: 1. Palliative care. 2. Would discontinue IV antibiotics. Again, the patient does not clinically have colitis. 3. The patient can be discharged home with comfort care measures. Raymundo Sinclair MD MTDD
[2019-04-03] MEDS: Piperacill/Tazo 4.5gm in NS 4.5 GM/100 ML BAG IVPB SCH ×3 (06:16→21:37)
[2019-04-03 07:01] LABS: BASO # 0.02 K/mm3 (0.0-2.0); BASO % 0.3 % (0.0-3.0); EOS # 0.1 (0.0-0.7); EOS % 1.8 % (1.5-5.0); HEMOGLOBIN 10.1 g/dL (14.0-18.0); LYMPH # 1.3 (1.2-3.4); LYMPH % 19.4 % (22.0-35.0); MEAN CORPUSCULAR HEMOGLOBIN 27.4 pg (25.0-35.0); MEAN CORPUSCULAR HGB CONC 32.7 g/dl (31.0-37.0); MEAN PLATELET VOLUME 9.7 fl (7.0-11.0); MONO # 1.2 (0.1-0.6); MONO % 17.8 % (1.0-6.0); RBC 3.68 10^6/uL (3.5-6.1); RED CELL DISTRIBUTION WIDTH 18.4 % (11.5-14.5); WHITE BLOOD COUNT 6.5 10^3/uL (4.5-11.0)
--- NOTE | 2019-04-03 07:04 | CP.PCM.PN ---
Subjective - Date & Time of Evaluation Date of Evaluation: 04/03/19 Time of Evaluation: 06:55 - Subjective Subjective: Lying in bed, no distress, family at bedside Reason for consultation: Cardiac evaluation due to indeterminate troponin, history of pancreatic cancer,(end stage), coronary artery disease post stents. Seen and examined by me and Dr. Verma Objective - Vital Signs/Intake and Output Vital Signs (last 24 hours): Temp Pulse Resp BP Pulse Ox 98.5 F 104 H 20 91/50 L 97 04/02/19 16:53 04/02/19 18:00 04/02/19 16:53 04/02/19 16:53 04/02/19 16:53 Intake and Output: 04/03/19 04/03/19 06:59 18:59 Intake Total 120 Output Total 250 Balance -130 - Medications Medications: Current Medications Acetaminophen (Tylenol 325mg Tab) 650 mg PO Q4H PRN PRN Reason: Pain, Mild (1-3) Amylase (Pancrease [id number] U) 0 unit PO AC [facility] Last Admin: 04/02/19 17:03 Dose: 5,000 unit Aspirin (Ecotrin) 81 mg PO DAILY [facility] Last Admin: 04/02/19 09:46 Dose: 81 mg Dronabinol (Marinol) 2.5 mg PO BID [facility] Famotidine (Pepcid) 20 mg PO DAILY [facility] Home Med (Home Med) 1 unit IH DAILY [facility] Last Admin: 04/02/19 12:10 Dose: 1 unit Vancomycin HCl (Vancomycin 1gm) 1 gm in 250 mls @ 167 mls/hr IVPB Q12H [facility]; Protocol Stop: 04/11/19 11:16 Last Admin: 04/02/19 23:49 Dose: 167 mls/hr Piperacillin Sod/Tazobactam Sod (Zosyn 4.5 Gm In Ns 100ml) 4.5 gm in 100 mls @ 25 mls/hr IVPB Q8 [facility]; Protocol Stop: 04/10/19 22:01 Last Admin: 04/03/19 06:16 Dose: 25 mls/hr Lactulose (Enulose) 10 gm PO BID [facility] Last Admin: 04/02/19 18:37 Dose: 10 gm Morphine Sulfate (Morphine) 1 mg IVP Q4 PRN PRN Reason: Pain, severe (8-10) (Fluticasone/Vilanterol [Breo Ellipta 100-25 Mcg Inh] 1 Puff) 1 puff IH QAM [facility] Last Admin: 04/02/19 12:10 Dose: 1 puff Ondansetron HCl (Zofran Inj) 4 mg IVP Q6 PRN PRN Reason: Nausea/Vomiting Tamsulosin HCl (Flomax) 0.4 mg PO DAILY [facility] Last Admin: 04/02/19 12:43 Dose: 0.4 mg Tramadol HCl (Ultram) 50 mg PO Q8 PRN PRN Reason: Pain, moderate (4-7) Last Admin: 04/03/19 06:32 Dose: 50 mg - Labs Labs: 04/02/19 06:30 04/02/19 06:30 PT 11.9 SECONDS (9.4-12.5) 04/01/19 18:06 INR 1.07 04/01/19 18:06 APTT 30.7 Seconds (26.9-38.3) 04/01/19 18:06 - Constitutional Appears: Non-toxic, No Acute Distress - Head Exam Head Exam: NORMAL INSPECTION, NORMOCEPHALIC - Eye Exam Eye Exam: Normal appearance Pupil Exam: NORMAL ACCOMODATION - ENT Exam ENT Exam: Mucous Membranes Moist, Normal Exam - Neck Exam Neck Exam: Full ROM, Normal Inspection - Respiratory Exam Respiratory Exam: Decreased Breath Sounds, NORMAL BREATHING PATTERN - Cardiovascular Exam Cardiovascular Exam: +S1, +S2 - GI/Abdominal Exam GI & Abdominal Exam: Soft, Normal Bowel Sounds Additional comments: right peritoneal drainage - Extremities Exam Extremities Exam: Full ROM, Normal Capillary Refill - Neurological Exam Neurological Exam: Alert, Awake - Psychiatric Exam Psychiatric exam: Normal Affect, Normal Mood - Skin Skin Exam: Dry, Normal Color, Warm Assessment and Plan - Assessment and Plan (Free Text) Assessment: An 88 year old male who was brought to the ER due to progressive worsening abdominal pain, loss of appetite,nausea and vomiting. Patient does have chronic abdominal pain but family reports that he takes Tramadol but this time with no relief.Son reports that over the past week the patient has been progressively weaker and unsteady on his feet with difficulty ambulating. He typically able to ambulate without assistance. History of metastatic pancreatic cancer with liver metastasis, had chemotherapy, bilateral inguinal hernia repair, chronic anemia, COPD, former smoker,recurrent ascites, with peritoneal catheter last paracentesis 02/22/19, coronary artery disease post stents, hypertension,hyperlipidemia. Consult was called for indeterminate troponin. He had cardiac cath on 05/13/2015 and showed 2 vessel disease of RCA and LAD. Successful PTCA of LAD was done and Staged PTCA with NORMA of RCA and POBA of distal RCA done on 06/10/15. Troponin 0.11, indeterminate, Abdominal discomfort, on Toradol. EKG normal sinus rhythm with frequent PVC's and APC's. right bundle branch block. Medical treatment. Dr. Verma spoke to patient and family, No further invasive cardiac procedures. Denies chest pain or shortness of breath. Rule out acute coronary syndrome. Cardiac status stable. Pain management. Echo to evaluate LV function. Nutritional support. No further cardiac work up at this time. Plan: Mild Abdominal pain,family at bedside PRN Tramadol No distress, denies chest pain Heart rate and blood pressure stable Cardiac status stable Echo to evaluate LV function Continue current treatment Continue current medications Supportive care Pain management Nutritional support Refer to palliative care Will follow up Plan and treatment discussed with Dr. Verma
[2019-04-03 08:12] LABS: ALB/GLOB RATIO 0.8 (1.1-1.8); ALBUMIN 2.5 g/dL (3.0-4.8); ALT/SGPT 118 U/L (7-56); AST/SGOT 104 U/L (17-59)
[2019-04-03 08:13] LABS: BLOOD UREA NITROGEN 19 mg/dL (7-21); CALCIUM 8.5 mg/dL (8.4-10.5); GFR NON-AFRICAN AMERICAN > 60
[2019-04-03] MEDS: Amylase/Lipase/Protease 5,000 Units ECC PO SCH ×2 (09:15→16:12)
[2019-04-03] MEDS: Vancomycin 1gm in NS 250ml 1 GM/250 ML BAG IVPB SCH ×2 (10:17→22:34)
--- NOTE | 2019-04-03 13:00 | PN ---
DATE: 04/03/2019 SUBJECTIVE: The patient is in bed, in no acute distress, nontoxic. PHYSICAL EXAMINATION: VITAL SIGNS: Temperature is 98, blood pressure is 103/60, respiratory rate of 20. HEENT: Unremarkable. NECK: Supple. LUNGS: Decreased breath sounds. HEART: Normal S1, S2. ABDOMEN: Soft, nontender. LABORATORY DATA: Examination reveals a white count of 6.5, hemoglobin of 10. BUN of 26, creatinine of 0.7. LFTs are elevated. Urinalysis is noted. The patient had a CAT scan of the abdomen and pelvis, results are noted. Dr. Raymundo Sinclair's consultation from yesterday is reviewed. He recommends to discontinue the antibiotics and place the patient on palliative care and comfort measures only. ASSESSMENT AND PLAN: An 88-year-old male with severe sepsis, tachycardia, dyspnea, weakness, probable biliary obstruction versus spontaneous bacterial peritonitis. Currently on Zosyn. The patient does have a Port-A-Cath. Bacteremia must be ruled out. Thus far, the cultures are pending. The patient is also on vancomycin in addition to the Zosyn. I agree with Dr. Raymundo Sinclair, the patient should be on palliative care. If the primary and family agree, would discontinue the antibiotics and palliative care only in this patient. We will follow with you. Toby Abebe MD
[2019-04-03] MEDS: Sodium Chloride 0.9% 1,000 ML IV SCH (14:13)
[2019-04-03] MEDS: [UNRECOGNIZED DRUG - OTHER] PO SCH (17:14)
--- NOTE | 2019-04-03 19:42 | PN ---
DATE: 04/03/2019 This is [facility] visit on the medical floor. For Dr. Pearson, SUBJECTIVE: The patient is an 88-year-old male seen lying awake in bed, family members at the bedside with known stage IV pancreatic cancer with liver metastasis with ascites with ASCVD, intractable pain of cancer, now moved to the Oncology floor with the family after long discussion still reporting full code to be in effect with no hospice at this time, especially since he maybe septic as his blood pressure was low yesterday with the patient recuperating with hydration as he has done in the past. Dr. Sinclair's note was appreciated with the patient unfortunately now reporting diarrhea as there was suspicion that the colitis diagnosed as per the report from the radiologist did not correlate with the clinical presentation. However, the patient was restarted on antibiotics as per Dr. Abebe on the suspicion that the colitis may not be the etiology for his possible sepsis with antibiotics to continue at least the full blood cultures are known. The patient is a full code. After DNR/DNI, discussion was held in the that this possibly maybe reversible process. As per family wishes, we will continue aggressive medical support in the possibility of recuperation by the patient. However, the patient's family is aware of his long-term prognosis with comfort measures to be considered should his condition deteriorates. Tramadol appears to help his pain at this point with the patient tolerating broth and soft and liquids with advancement to soft diet anticipated. We will also restart his IV fluids low at 50 mL an hour in the interim. OBJECTIVE/PHYSICAL EXAMINATION: VITAL SIGNS: Temperature 98, pulse 88, respirations 20, blood pressure 103/62, and pulse ox 98%. HEENT: Unremarkable. Tongue is moist. NECK: Regular. HEART: Regular rate, occasional ectopic beat. LUNGS: Decreased breath sounds at the bases. ABDOMEN: Soft with minimal tenderness to gentle palpation with ostomy bag for ascites fluid collection noted. EXTREMITIES: No edema. NEUROLOGIC: Somnolent, but arousable. SKIN: Warm and dry. LABORATORY DATA: The patient's labs were done. White blood cell count is 6.5, hemoglobin 10.1, hematocrit 30.9, and platelet count of 267,000 with a metabolic panel showing sodium of 131, total bilirubin of 2.0 up from 1.6 yesterday after his IV fluids were discontinued. AST, however, is down to 104 from 138 yesterday, ALT of 118 down from 150 with an ammonia level increased to 83 from 34 as lactulose was now restarted twice a day. Sepsis, possible bacterial peritonitis. Microbiology is pending. ASSESSMENT: The assessment for this patient is that of sepsis, possible colitis; stage IV pancreatic cancer; liver metastasis, abnormal liver function tests; intractable pain of cancer with ascites; chronic obstructive pulmonary disease; gastroesophageal reflux disease; anemia of chronic disease; atherosclerotic cardiovascular disease; failure to thrive; hypotension earlier, now improved; benign prostatic hyperplasia; gait disturbance; elevated troponin intermediate. PLAN: The plan for this patient after conversation with the family members at length and with Dr. Pearson and with Dr. Abebe and with Dr. Sinclair and nursing staff is to continue his present medical regimen with Marinol restarted. The patient is not taking morphine as tramadol seems to help his pain. We will restart his IV at 50 mL now of normal saline in the interm with antibiotics restarted as per Dr. Abebe with cultures pending with his diet to be advanced with BRAT diet for his loose stool, also stool for C. difficile to be obtained and to be monitored clinically. The patient is still full code with consideration for DNI/DNR, should his condition deteriorate as per family members along with hospice protocol should he deteriorate at present. Family requests that all efforts to be continued for reversible of his morbidity at this time as possible. This is a complex patient with a comprehensive medically necessary and appropriate visit carried out in excess of 80 minutes with long discussion with the patient's family and attend other consultants as above with prognosis for this patient guarded. Ruperto Tatum MD
[2019-04-04] MEDS: Piperacill/Tazo 4.5gm in NS 4.5 GM/100 ML BAG IVPB SCH ×3 (05:36→21:56)
[2019-04-04 06:13] LABS: BASO # 0.03 K/mm3 (0.0-2.0); BASO % 0.5 % (0.0-3.0); EOS # 0.1 (0.0-0.7); EOS % 1.6 % (1.5-5.0); HEMOGLOBIN 10.1 g/dL (14.0-18.0); LYMPH # 1.2 (1.2-3.4); MEAN CELL VOLUME 84.5 fl (80.0-105.0); MEAN CORPUSCULAR HEMOGLOBIN 27.4 pg (25.0-35.0); MEAN CORPUSCULAR HGB CONC 32.5 g/dl (31.0-37.0); MEAN PLATELET VOLUME 9.4 fl (7.0-11.0); MONO % 16.2 % (1.0-6.0); RBC 3.68 10^6/uL (3.5-6.1); RED CELL DISTRIBUTION WIDTH 18.2 % (11.5-14.5); WHITE BLOOD COUNT 6.1 10^3/uL (4.5-11.0)
--- NOTE | 2019-04-04 06:53 | CP.PCM.PN ---
Subjective - Date & Time of Evaluation Date of Evaluation: 04/04/19 Time of Evaluation: 06:40 - Subjective Subjective: Awake, Lying in bed, no distress, son at bedside Reason for consultation and follow up: Cardiac evaluation due to indeterminate troponin, history of pancreatic cancer,(end stage), coronary artery disease post stents. Seen and examined by me and Dr. Verma Objective - Vital Signs/Intake and Output Vital Signs (last 24 hours): Temp Pulse Resp BP Pulse Ox 97 F L 85 18 90/49 L 95 04/03/19 16:07 04/03/19 16:07 04/03/19 16:07 04/03/19 16:07 04/03/19 16:07 Intake and Output: 04/03/19 04/04/19 18:59 06:59 Intake Total 1200 Balance 1200 - Medications Medications: Current Medications Acetaminophen (Tylenol 325mg Tab) 650 mg PO Q4H PRN PRN Reason: Pain, Mild (1-3) Aspirin (Ecotrin) 81 mg PO DAILY [facility] Last Admin: 04/03/19 09:12 Dose: 81 mg Dronabinol (Marinol) 2.5 mg PO BID [facility] Last Admin: 04/03/19 17:13 Dose: 2.5 mg Famotidine (Pepcid) 20 mg PO DAILY [facility] Last Admin: 04/03/19 09:16 Dose: 20 mg Home Med (Home Med) 1 unit IH DAILY [facility] Last Admin: 04/03/19 17:14 Dose: 1 unit Vancomycin HCl (Vancomycin 1gm) 1 gm in 250 mls @ 167 mls/hr IVPB Q12H [facility]; Protocol Stop: 04/11/19 11:16 Last Admin: 04/03/19 22:34 Dose: 167 mls/hr Piperacillin Sod/Tazobactam Sod (Zosyn 4.5 Gm In Ns 100ml) 4.5 gm in 100 mls @ 25 mls/hr IVPB Q8 [facility]; Protocol Stop: 04/10/19 22:01 Last Admin: 04/04/19 05:36 Dose: 25 mls/hr Sodium Chloride (Sodium Chloride 0.9%) 1,000 mls @ 50 mls/hr IV .Q20H [facility] Last Admin: 04/03/19 14:13 Dose: 50 mls/hr Lactulose (Enulose) 10 gm PO BID [facility] Last Admin: 04/03/19 17:13 Dose: 10 gm Morphine Sulfate (Morphine) 1 mg IVP Q4 PRN PRN Reason: Pain, severe (8-10) (Fluticasone/Vilanterol [Breo Ellipta 100-25 Mcg Inh] 1 Puff) 1 puff IH QAM [facility] Last Admin: 04/03/19 17:14 Dose: [address] [place] [id number] /[id number] Units Capsule ] (Home Med) 1 cap PO AC [facility] Last Admin: 04/03/19 17:14 Dose: 1 cap Ondansetron HCl (Zofran Inj) 4 mg IVP Q6 PRN PRN Reason: Nausea/Vomiting Tamsulosin HCl (Flomax) 0.4 mg PO DAILY [facility] Last Admin: 04/03/19 09:13 Dose: 0.4 mg Tramadol HCl (Ultram) 50 mg PO Q8 PRN PRN Reason: Pain, moderate (4-7) Last Admin: 04/03/19 14:07 Dose: 50 mg - Labs Labs: 04/04/19 05:00 04/03/19 06:45 PT 11.9 SECONDS (9.4-12.5) 04/01/19 18:06 INR 1.07 04/01/19 18:06 APTT 30.7 Seconds (26.9-38.3) 04/01/19 18:06 - Constitutional Appears: Non-toxic, No Acute Distress - Head Exam Head Exam: NORMAL INSPECTION, NORMOCEPHALIC - Eye Exam Eye Exam: Normal appearance Pupil Exam: NORMAL ACCOMODATION - ENT Exam ENT Exam: Mucous Membranes Moist, Normal Exam - Neck Exam Neck Exam: Full ROM, Normal Inspection - Respiratory Exam Respiratory Exam: Decreased Breath Sounds, Clear to Ausculation Bilateral, NO RMAL BREATHING PATTERN - Cardiovascular Exam Cardiovascular Exam: +S1, +S2 Additional comments: right chest port - GI/Abdominal Exam GI & Abdominal Exam: Soft, Normal Bowel Sounds Additional comments: right peritoneal drainage - Extremities Exam Extremities Exam: Full ROM, Normal Capillary Refill - Neurological Exam Neurological Exam: Alert, Awake - Psychiatric Exam Psychiatric exam: Normal Affect, Normal Mood - Skin Skin Exam: Dry, Normal Color, Warm Assessment and Plan - Assessment and Plan (Free Text) Assessment: An 88 year old male who was brought to the ER due to progressive worsening abdominal pain, loss of appetite,nausea and vomiting. Patient does have chronic abdominal pain but family reports that he takes Tramadol but this time with no relief.Son reports that over the past week the patient has been progressively weaker and unsteady on his feet with difficulty ambulating. He typically able to ambulate without assistance. History of metastatic pancreatic cancer with liver metastasis, had chemotherapy, bilateral inguinal hernia repair, chronic anemia, COPD, former smoker,recurrent ascites, with peritoneal catheter last paracentesis 02/22/19, coronary artery disease post stents, hypertension,hyperlipidemia. Consult was called for indeterminate troponin. He had cardiac cath on 05/13/2015 and showed 2 vessel disease of RCA and LAD. Successful PTCA of LAD was done and Staged PTCA with NORMA of RCA and POBA of distal RCA done on 06/10/15. Troponin 0.11, indeterminate, Abdominal discomfort, on Toradol. EKG normal sinus rhythm with frequent PVC's and APC's. right bundle branch block. Denies chest pain or shortness of breath. Rule out acute coronary syndrome. Medical treatment. Dr. Verma spoke to patient and family, No further invasive cardiac procedures. Cardiac status stable. Pain management. Nutritional support. Echo to evaluate LV function. Episode of diarrhea, stool sent for C- diff. pending results. Continue IV antibiotics. IV hydration. Plan: Echo to evaluate LV function No distress, denies chest pain Heart rate and blood pressure stable Cardiac status stable Continue current treatment Continue current medications Supportive care Pain management Nutritional support Continue IV antibiotics per ID Continue IV hydration as ordered Will follow up Plan and treatment discussed with Dr. Verma
[2019-04-04 07:10] LABS: ALB/GLOB RATIO 0.8 (1.1-1.8); ALBUMIN 2.4 g/dL (3.0-4.8); ALT/SGPT 122 U/L (7-56); AST/SGOT 118 U/L (17-59); BLOOD UREA NITROGEN 15 mg/dL (7-21); CALCIUM 8.4 mg/dL (8.4-10.5); GFR NON-AFRICAN AMERICAN > 60
--- NOTE | 2019-04-04 08:35 | PN ---
DATE: 04/04/2019 SUBJECTIVE: The patient appears comfortable this morning. He is not short of breath at rest. PHYSICAL EXAMINATION: VITAL SIGNS: (Last noted in the computer): Temperature is 97.0, pulse 85, respirations 18, blood pressure 90/49. Oxygen saturation on room air 95% to 98%. HEENT: Normocephalic, atraumatic. No JVD. CARDIOVASCULAR: Systolic ejection murmur at the lower left sternal border. No S3 gallop. LUNGS: Decreased breath sounds at the bases. No rhonchi. No wheezing. EXTREMITIES: No clubbing, cyanosis or edema. Calves are nontender to palpation. GASTROINTESTINAL: Abdomen is soft, nontender and nondistended. Bowel sounds are positive. SKIN: No acute rash. NEUROLOGIC: Exam limited at the present time. IMPRESSION: 1. Stage IV metastatic pancreatic cancer. 2. Failure to thrive. 3. Pulmonary nodules. 4. Chronic obstructive pulmonary disease. PLAN: The patient appears comfortable this morning. He is not short of breath at rest. I did discuss the case with the son (at bedside). The son stated that the patient is doing a little better, and is more comfortable. On physical exam, there is no bronchospasm noted. In addition, there is no significant alveolar arterial gradient. I will continue the current pulmonary medications for now - Breo Ellipta. Inputs by Gastroenterology and Oncology are also noted. Clinical status of the patient does appear improved - compared to the initial presentation. However, unfortunately, the future status/prognosis for this patient is very, very poor. All are aware. I will discuss the above with the attending physician. Panda Garcia MD [facility]
--- NOTE | 2019-04-04 08:35 | PN ---
DATE: 04/03/2019 PULMONARY PROGRESS NOTE SUBJECTIVE: The patient was seen and examined at bedside with his daughter present at bedside. He appears comfortable with no respiratory distress. PHYSICAL EXAMINATION: VITAL SIGNS: Temperature 98, pulse 88, respirations 20, pulse oximetry is 98% on room air, and blood pressure is 103/62. HEENT: Head is normocephalic and atraumatic. NECK: Supple with no jugular vein distentions. CARDIOVASCULAR: S1 and S2. No S3. Regular. PULMONARY: Diminished breath sounds at both bases with no wheezing. GASTROINTESTINAL: Soft and nontender. No organomegaly. : Within normal limits EXTREMITIES: No pedal edema. No cyanosis. NEUROLOGIC: Limited at the present time. SKIN: No acute skin rash. ASSESSMENT: 1. Chronic obstructive pulmonary disease. 2. Metastasis pancreatic cancer. 3. Elevated liver enzymes. 4. Mild anemia. PLAN: The patient is comfortable at rest, is not short of breath. His today's blood work was reviewed by me. His serum sodium is reduced at 131. His total bilirubin is elevated at 2. His [place] [address]. The hemoglobin is reduced at 10.1. He is stable from a pulmonary standpoint. We will continue with administration of bronchodilators on an as needed basis. This was discussed with his daughter. He will continue with his Breo and Incruse. Darrion Cadet MD MTDD
[2019-04-04] MEDS: [UNRECOGNIZED DRUG - OTHER] PO SCH ×3 (08:46→17:27)
[2019-04-04] MEDS: Sodium Chloride 0.9% 1,000 ML IV SCH (10:00)
[2019-04-04] MEDS ORDERED: Simethicone 80 mg Chewtab PO SCH (14:00)
--- NOTE | 2019-04-04 14:33 | CP.PCM.APN ---
Subjective - Date & Time of Evaluation Date of Evaluation: 04/04/19 Time of Evaluation: 10:00 - Subjective Subjective: pt. seen and examined, c/o abdominal discomfort, some abdominal distention noted. Objective - Vital Signs/Intake and Output Vital Signs (last 24 hours): Temp Pulse Resp BP Pulse Ox 97.9 F 94 H 18 94/59 L 94 L 04/04/19 08:10 04/04/19 08:10 04/04/19 08:10 04/04/19 08:10 04/04/19 08:10 Intake and Output: 04/04/19 04/04/19 06:59 18:59 Intake Total 1200 Balance 1200 - Medications Medications: Current Medications Acetaminophen (Tylenol 325mg Tab) 650 mg PO Q4H PRN PRN Reason: Pain, Mild (1-3) Albumin Human (Albumin Human 5% (12.5 Gm/250 Ml)) 12.5 gm IV BID [facility] Stop: 04/05/19 18:01 Aspirin (Ecotrin) 81 mg PO DAILY [facility] Last Admin: 04/04/19 09:57 Dose: 81 mg Dronabinol (Marinol) 2.5 mg PO BID [facility] Last Admin: 04/04/19 09:57 Dose: 2.5 mg Famotidine (Pepcid) 20 mg PO DAILY [facility] Last Admin: 04/04/19 09:57 Dose: 20 mg Home Med (Home Med) 1 unit IH DAILY [facility] Last Admin: 04/04/19 09:57 Dose: 1 unit Piperacillin Sod/Tazobactam Sod (Zosyn 4.5 Gm In Ns 100ml) 4.5 gm in 100 mls @ 25 mls/hr IVPB Q8 [facility]; Protocol Stop: 04/10/19 22:01 Last Admin: 04/04/19 14:00 Dose: 25 mls/hr Sodium Chloride (Sodium Chloride 0.9%) 1,000 mls @ 50 mls/hr IV .Q20H [facility] Last Admin: 04/03/19 14:13 Dose: 50 mls/hr Lactulose (Enulose) 10 gm PO BID [facility] Last Admin: 04/04/19 09:57 Dose: 10 gm Morphine Sulfate (Morphine) 1 mg IVP Q4 PRN PRN Reason: Pain, severe (8-10) (Fluticasone/Vilanterol [Breo Ellipta 100-25 Mcg Inh] 1 Puff) 1 puff IH QAM [facility] Last Admin: 04/04/19 09:57 Dose: [address] [place] [id number] /[id number] Units Capsule ] (Home Med) 1 cap PO AC [facility] Last Admin: 04/04/19 13:02 Dose: 1 cap Ondansetron HCl (Zofran Inj) 4 mg IVP Q6 PRN PRN Reason: Nausea/Vomiting Simethicone (Mylicon Chew Tab) 80 mg PO TID [facility] Last Admin: 04/04/19 14:00 Dose: Not Given Simethicone (Mylicon Liq) 80 mg PO TID [facility] Tamsulosin HCl (Flomax) 0.4 mg PO DAILY [facility] Last Admin: 04/04/19 09:57 Dose: 0.4 mg Tramadol HCl (Ultram) 50 mg PO Q8 PRN PRN Reason: Pain, moderate (4-7) Last Admin: 04/04/19 08:46 Dose: 50 mg - Labs Labs: 04/04/19 05:00 04/04/19 05:00 PT 11.9 SECONDS (9.4-12.5) 04/01/19 18:06 INR 1.07 04/01/19 18:06 APTT 30.7 Seconds (26.9-38.3) 04/01/19 18:06 - Constitutional Appears: No Acute Distress - Head Exam Head Exam: NORMOCEPHALIC - Eye Exam Eye Exam: Normal appearance - ENT Exam ENT Exam: Mucous Membranes Moist, Normal Exam - Neck Exam Neck Exam: Full ROM - Respiratory Exam Respiratory Exam: Clear to Ausculation Bilateral - Cardiovascular Exam Cardiovascular Exam: +S1, +S2 - GI/Abdominal Exam GI & Abdominal Exam: Distended, Soft Additional comments: abdominal distention, with ostomy bag noted to prior drainage site. - Rectal Exam Rectal Exam: Deferred - Exam Exam: absent: Circumcision, NORMAL INSPECTION, Scrotal Swelling, Testicular Tenderness, Uretheral Discharge, Testicular Vertical Lie, Bladder Distension External exam: absent: Ecchymosis, Erythema, Lacerations, Lesions, NORMAL EXTERNAL EXAM, Swelling Speculum exam: absent: Cervical Discharge, Erythema, Foreign Body, Laceration, NORMAL SPECULUM EXAM, Tissue, Vaginal Bleeding, Vaginal Discharge Bimanual exam: absent: Adenexal Mass, Adnexal, Cervical Motion Tendernes, NORMAL BIMANUAL EXAM, Uterine Enlargement, Uterine Tenderness - Extremities Exam Extremities Exam: Full ROM - Neurological Exam Neurological Exam: Alert - Psychiatric Exam Psychiatric exam: Depressed - Skin Skin Exam: Dry, Intact, Normal Color, Warm Assessment and Plan - Assessment and Plan (Free Text) Assessment: ITS Impressions Microbiology 04/02/19 13:00 Blood Blood Culture - Preliminary NO GROWTH AFTER 48 HOURS 04/02/19 13:30 Blood Blood Culture - Preliminary NO GROWTH AFTER 48 HOURS 04/02/19 15:45 Urine Random Urine Culture - Preliminary Gram Positive Cocci Yeast Species 04/03/19 23:24 Stool C. difficile Antigen & Toxins A,B - Final oxycodone Adverse Reaction (Verified 04/02/19 13:24) DIZZINESS Chest X-Ray 04/01/19 17:55 IMPRESSION: No active disease. Multiple right lung nodular opacities. Abdomen/Pelvis CT 04/01/19 19:55 IMPRESSION: Infectious/inflammatory colitis extending from the cecum to the splenic flexure. This finding was not reported by tele radiology. Redemonstration of low-attenuation mass at the head neck junction of the pancreas. Discrete measurements are difficult in the absence of intravenous contrast. Increase in amount of perihepatic ascites. Trace perisplenic ascites. Small volume pelvic ascites. Multiple bibasilar pulmonary nodules, which may be less in number compared to the prior study. Additional stable findings as above. Assessment: 88 year old male who was brought to the ER due to progressive worsening abdominal pain, loss of appetite,nausea and vomiting, admitted with fatigue,weakness, for further eval and treatment. Plan: 1. Abdominal pain, ascites likely r/t pancreatic ca w. mets to liver- Morphine prn, Marinol as ordered. 2. Severe Sepsis, likely biliary obstruction vs. spontaneous bacterial peritonitis- IV antibiotics per I.D. cultures pending. procal pending. 3. Colitis unlikely per GI., rec. palliative care/ hospice.Stool Cdiff pending. 4. Intermediate troponins w. no angina symptoms, per Cardiology conservative treatment, echo pending. Will continue to monitor clinical status and follow closely.
--- NOTE | 2019-04-04 17:02 | PN ---
DATE: 04/04/2019 SUBJECTIVE: The patient is in bed in no acute distress, nontoxic. No fevers and no chills. PHYSICAL EXAMINATION: VITAL SIGNS: Temperature is 98, blood pressure is 120/70, respiratory rate of 16. HEENT: Unremarkable. NECK: Supple. LUNGS: Have decreased breath sounds. HEART: Normal S1 and S2. ABDOMEN: Soft. LABORATORY DATA: Reveals a white count of 6.1, hemoglobin of 10, platelets are noted. LFTs are reviewed. Urinalysis is noted; and microbiology reveals the cultures are negative. MEDICATIONS: Review of orders reveals the patient is on vancomycin and Zosyn. ASSESSMENT AND PLAN: This is an 88-year-old male with severe sepsis with probable biliary obstruction versus spontaneous bacterial peritonitis. The patient does have a Port-A-Cath, but the blood cultures are negative, and we will discontinue the vancomycin. Overall, prognosis is poor. Dr. Garcia's note is reviewed and appreciated, stage IV metastatic pancreatic cancer, failure to thrive with pulmonary nodules, chronic obstructive end-stage lung disease. Overall prognosis, should consider hospice setting. Toby Abebe MD
[2019-04-04] MEDS: Simethicone 40 mg/0.6 ml Liquid (30 ml) PO SCH (17:26)
[2019-04-04] MEDS: Albumin Human 5% (12.5 gm/250 ml) IV SCH (17:59)
[2019-04-05] MEDS: Piperacill/Tazo 4.5gm in NS 4.5 GM/100 ML BAG IVPB SCH ×3 (05:22→21:47)
[2019-04-05] MEDS: Sodium Chloride 0.9% 1,000 ML IV SCH ×2 (05:22→10:50)
[2019-04-05 05:35] LABS: HEMOGLOBIN 9.8 g/dL (14.0-18.0); MEAN CORPUSCULAR HGB CONC 32.1 g/dl (31.0-37.0); MEAN PLATELET VOLUME 9.3 fl (7.0-11.0); RBC 3.63 10^6/uL (3.5-6.1); WHITE BLOOD COUNT 5.8 10^3/uL (4.5-11.0)
[2019-04-05 05:42] LABS: ALB/GLOB RATIO 0.9 (1.1-1.8); ALBUMIN 2.4 g/dL (3.0-4.8); ALT/SGPT 119 U/L (7-56); AST/SGOT 125 U/L (17-59); BLOOD UREA NITROGEN 13 mg/dL (7-21); CALCIUM 8.4 mg/dL (8.4-10.5); GFR NON-AFRICAN AMERICAN > 60
--- NOTE | 2019-04-05 08:39 | PQF ---
PROVIDER RESPONSE TEXT: Provider was unable to determine a response for this query. REVIEWER QUERY TEXT: Malnutrition Severity Malnutrition is documented in the Medical Record. Please specify the severity Such as: -- Mild - first degree -- Moderate - second degree -- Severe - third degree -- Severe malnutrition with marasmus -- Other, please specify The patient's Clinical Indicators include: Query created by: Karli Eldridge on 04/04/2019 11:30 AM Electronically signed by: Karlos Smith 04/05/2019 8:36 AM
--- NOTE | 2019-04-05 08:41 | CP.PCM.PN ---
<LuisKarlos Elena - Last Filed: 04/05/19 08:43> Subjective - Date & Time of Evaluation Date of Evaluation: 04/04/19 Time of Evaluation: 08:41 - Subjective Subjective: Heme/onc progress note - Luis PGY - 2 Patient seen and examined at bedside with no acute overnight events. Patient has been in quite a bit of pain this morning though. Drainage from abdominal site is decreased. Objective - Vital Signs/Intake and Output Vital Signs (last 24 hours): Temp Pulse Resp BP Pulse Ox 99 F 84 20 93/57 L 94 L 04/05/19 08:05 04/05/19 08:05 04/05/19 08:05 04/05/19 08:05 04/05/19 08:05 Intake and Output: 04/05/19 04/05/19 06:59 18:59 Intake Total 1250 Balance 1250 - Medications Medications: Current Medications Acetaminophen (Tylenol 325mg Tab) 650 mg PO Q4H PRN PRN Reason: Pain, Mild (1-3) Albumin Human (Albumin Human 5% (12.5 Gm/250 Ml)) 12.5 gm IV BID [facility] Stop: 04/05/19 18:01 Last Admin: 04/04/19 17:59 Dose: 12.5 gm Aspirin (Ecotrin) 81 mg PO DAILY [facility] Last Admin: 04/04/19 09:57 Dose: 81 mg Dronabinol (Marinol) 2.5 mg PO BID [facility] Last Admin: 04/04/19 17:26 Dose: 2.5 mg Famotidine (Pepcid) 20 mg PO DAILY [facility] Last Admin: 04/04/19 09:57 Dose: 20 mg Home Med (Home Med) 1 unit IH DAILY [facility] Last Admin: 04/04/19 09:57 Dose: 1 unit Piperacillin Sod/Tazobactam Sod (Zosyn 4.5 Gm In Ns 100ml) 4.5 gm in 100 mls @ 25 mls/hr IVPB Q8 [facility]; Protocol Stop: 04/10/19 22:01 Last Admin: 04/05/19 05:22 Dose: 25 mls/hr Sodium Chloride (Sodium Chloride 0.9%) 1,000 mls @ 50 mls/hr IV .Q20H [facility] Last Admin: 04/05/19 05:22 Dose: 50 mls/hr Lactulose (Enulose) 10 gm PO BID [facility] Last Admin: 04/04/19 17:12 Dose: Not Given Morphine Sulfate (Morphine) 1 mg IVP Q4 PRN PRN Reason: Pain, severe (8-10) Last Admin: 04/05/19 04:15 Dose: 1 mg (Fluticasone/Vilanterol [Breo Ellipta 100-25 Mcg Inh] 1 Puff) 1 puff IH QAM [facility] Last Admin: 04/04/19 09:57 Dose: [address] [address] [id number] /[id number] Units Capsule ] (Home Med) 1 cap PO AC [facility] Last Admin: 04/04/19 17:27 Dose: 1 cap Ondansetron HCl (Zofran Inj) 4 mg IVP Q6 PRN PRN Reason: Nausea/Vomiting Simethicone (Mylicon Liq) 80 mg PO TID [facility] Last Admin: 04/04/19 17:26 Dose: 80 mg Tamsulosin HCl (Flomax) 0.4 mg PO DAILY [facility] Last Admin: 04/04/19 09:57 Dose: 0.4 mg Tramadol HCl (Ultram) 50 mg PO Q8 PRN PRN Reason: Pain, moderate (4-7) Last Admin: 04/05/19 08:33 Dose: 50 mg - Labs Labs: 04/05/19 05:10 04/05/19 05:10 PT 11.9 SECONDS (9.4-12.5) 04/01/19 18:06 INR 1.07 04/01/19 18:06 APTT 30.7 Seconds (26.9-38.3) 04/01/19 18:06 - Constitutional Appears: Well - Head Exam Head Exam: ATRAUMATIC, NORMAL INSPECTION, NORMOCEPHALIC - Eye Exam Eye Exam: EOMI, Normal appearance, PERRL Pupil Exam: NORMAL ACCOMODATION, PERRL - ENT Exam ENT Exam: Mucous Membranes Moist, Normal Exam - Neck Exam Neck Exam: Full ROM, Normal Inspection. absent: Lymphadenopathy - Respiratory Exam Respiratory Exam: Clear to Ausculation Bilateral, NORMAL BREATHING PATTERN - Cardiovascular Exam Cardiovascular Exam: REGULAR RHYTHM, +S1, +S2. absent: Murmur - GI/Abdominal Exam GI & Abdominal Exam: Soft, Normal Bowel Sounds. absent: Tenderness - Extremities Exam Extremities Exam: Full ROM, Normal Capillary Refill, Normal Inspection. absent: Joint Swelling, Pedal Edema - Back Exam Back Exam: NORMAL INSPECTION - Neurological Exam Neurological Exam: Alert, Awake, CN II-XII Intact, Normal Gait, Oriented x3 - Psychiatric Exam Psychiatric exam: Normal Affect, Normal Mood - Skin Skin Exam: Dry, Intact, Normal Color, Warm Assessment and Plan - Assessment and Plan (Free Text) Assessment: 88-year-old male with a past medical history of asthma, BPH, hyperlipidemia, and stage IV pancreatic cancer who presented for excessive drainage and generalized fatigue Plan: Pancreatic CA Acute diarrhea likely 2/2 Lactulose Acute pain 2/2 malignancy Possible severe sepsis Asthma Hyperlipidemia BPH CAD Constipation Anemia of chronic disease Transaminitis Will continue to treat patient for now, after extensive discussion with family, for possible severe sepsis. Patient's transaminitis and total bili are improving for now. Will continue lactulose for hyperammonemia. Will continue antibiotics, given elevated procal. Spoke with family about comfort measures but they and patient do not want that right now. Patient pain controlled with Tramadol <Katy Pearson P - Last Filed: 04/05/19 19:39> Objective - Vital Signs/Intake and Output Vital Signs (last 24 hours): Temp Pulse Resp BP Pulse Ox 99 F 89 20 93/57 L 96 04/05/19 08:05 04/05/19 11:02 04/05/19 08:05 04/05/19 08:05 04/05/19 11:02 Intake and Output: 04/05/19 04/06/19 18:59 06:59 Intake Total 120 Output Total 0 Balance 120 - Medications Medications: Current Medications Acetaminophen (Tylenol 325mg Tab) 650 mg PO Q4H PRN PRN Reason: Pain, Mild (1-3) Last Admin: 04/05/19 12:45 Dose: 650 mg Aspirin (Ecotrin) 81 mg PO DAILY [facility] Last Admin: 04/05/19 10:50 Dose: 81 mg Dronabinol (Marinol) 2.5 mg PO BID [facility] Last Admin: 04/05/19 18:52 Dose: 2.5 mg Famotidine (Pepcid) 20 mg PO DAILY [facility] Last Admin: 04/05/19 10:43 Dose: 20 mg Fludrocortisone Acetate (Florinef) 0.1 mg PO DAILY [facility] Last Admin: 04/05/19 16:13 Dose: 0.1 mg Home Med (Home Med) 1 unit IH DAILY [facility] Last Admin: 04/05/19 10:43 Dose: 1 unit Piperacillin Sod/Tazobactam Sod (Zosyn 4.5 Gm In Ns 100ml) 4.5 gm in 100 mls @ 25 mls/hr IVPB Q8 [facility]; Protocol Stop: 04/10/19 22:01 Last Admin: 04/05/19 16:14 Dose: 25 mls/hr Sodium Chloride (Sodium Chloride 0.9%) 1,000 mls @ 100 mls/hr IV .Q10H [facility] Last Admin: 04/05/19 10:50 Dose: 100 mls/hr Lactulose (Enulose) 10 gm PO BID [facility] Last Admin: 04/05/19 18:52 Dose: 10 gm Morphine Sulfate (Morphine) 1 mg IVP Q4 PRN PRN Reason: Pain, severe (8-10) Last Admin: 04/05/19 04:15 Dose: 1 mg (Fluticasone/Vilanterol [Breo Ellipta 100-25 Mcg Inh] 1 Puff) 1 puff IH QAM [facility] Last Admin: 04/05/19 10:43 Dose: [address] [place] [id number] /[id number] Units Capsule ] (Home Med) 1 cap PO AC [facility] Last Admin: 04/05/19 16:13 Dose: 1 cap Ondansetron HCl (Zofran Inj) 4 mg IVP Q6 PRN PRN Reason: Nausea/Vomiting Simethicone (Mylicon Liq) 80 mg PO TID [facility] Last Admin: 04/05/19 18:52 Dose: Not Given Tamsulosin HCl (Flomax) 0.4 mg PO DAILY [facility] Last Admin: 04/05/19 10:43 Dose: 0.4 mg Tramadol HCl (Ultram) 50 mg PO Q8 PRN PRN Reason: Pain, moderate (4-7) Last Admin: 04/05/19 08:33 Dose: 50 mg - Labs Labs: 04/05/19 05:10 04/05/19 05:10 PT 11.9 SECONDS (9.4-12.5) 04/01/19 18:06 INR 1.07 04/01/19 18:06 APTT 30.7 Seconds (26.9-38.3) 04/01/19 18:06 Attending/Attestation - Attestation I have personally seen and examined this patient.: Yes I have fully participated in the care of the patient.: Yes I have reviewed all pertinent clinical information, including history, physical exam and plan: Yes
[2019-04-05] MEDS: [UNRECOGNIZED DRUG - OTHER] PO SCH ×3 (10:43→16:13)
[2019-04-05] MEDS: Simethicone 40 mg/0.6 ml Liquid (30 ml) PO SCH ×3 (10:43→18:52)
[2019-04-05] MEDS: Albumin Human 5% (12.5 gm/250 ml) IV SCH ×2 (11:12→20:21)
[2019-04-05] MEDS ORDERED: Potassium Chloride 20 mEq/15 ml LIQ UD PO STA (12:24)
--- NOTE | 2019-04-05 12:36 | PN ---
DATE: 04/05/2019 SUBJECTIVE: The patient is in bed in no acute distress. The patient's daughter is at the bedside who states the patient had an uneventful night, no fevers. PHYSICAL EXAMINATION: VITAL SIGNS: Temperature is 98, blood pressure is 82/42, respiratory rate 18, heart rate of 90. HEENT: Unremarkable. NECK: Supple. LUNGS: Decreased breath sounds. HEART: Normal S1, S2. ABDOMEN: Soft, nontender. LABORATORY DATA: Examination reveals the patient's white count of 5.8, hemoglobin of 9, platelets of 248. BUN of 13, creatinine of 0.7. Procalcitonin is noted. Urinalysis is reviewed. Microbiology is reviewed. The patient's cultures are noted. MEDICATIONS: Review of orders reveals the patient to be on Zosyn. ASSESSMENT AND PLAN: An 88-year-old male seen earlier this morning in 364, bed 2. The patient's daughter at the bedside and discussion about his care. The patient admitted with severe sepsis, probable biliary obstruction versus spontaneous bacterial peritonitis. The patient does have a Port-A-Cath, but the blood cultures are negative and therefore the vancomycin was discontinued. The patient was seen by Dr. Garcia this morning. Case was discussed with Dr. Garcia. The patient with pancreatic cancer stage IV with pulmonary nodules, chronic obstructive lung disease and would complete a short course of Zosyn, today is day #4. May be able to switch to oral Augmentin to complete therapy upon discharge. Overall prognosis is quite poor. Should consider hospice setting for this end-stage patient. Toby Abebe MD
--- NOTE | 2019-04-05 13:17 | PN ---
DATE: 04/05/2019 PULMONARY NOTE SUBJECTIVE: The patient appears comfortable this morning. He is not short of breath at rest. PHYSICAL EXAMINATION: VITAL SIGNS: (Last noted in the computer): Temperature is 98.5, pulse 90, respirations 16, blood pressure 82/42. Oxygen saturation on room air - 96%. HEENT: Normocephalic, atraumatic. No JVD. CARDIOVASCULAR: Systolic ejection murmur at the lower left sternal border. No S3 gallop. LUNGS: Decreased breath sounds at the bases. No rhonchi. No wheezing. GASTROINTESTINAL: Abdomen is soft. It is mildly distended and mildly tender to palpation. Bowel sounds are positive. EXTREMITIES: No clubbing, cyanosis or edema. Calves are nontender to palpation. SKIN: No acute rash. NEUROLOGIC: Exam limited at the present time. IMPRESSION: 1. Stage IV metastatic pancreatic cancer. 2. Failure to thrive. 3. Pulmonary nodules. 4. Chronic obstructive pulmonary disease. PLAN: The patient appears comfortable this morning. He is not short of breath at rest. I did discuss the case with the daughter (at bedside) at length. The daughter stated that the patient had an uneventful night. On physical exam, there is no significant bronchospasm noted. In addition, there is no significant alveolar-arterial gradient. I will continue the current pulmonary medications for now. Inputs by Gastroenterology and Oncology are also noted. Clinical status of the patient does appear improved-- compared to the initial presentation. However, given the above, the future status/prognosis for this patient remains very poor. All are aware. I will discuss the above with the attending physician. Panda Garcia MD MTDD
--- NOTE | 2019-04-05 16:05 | PN ---
DATE: 04/05/2019 REASON FOR CONSULTATION AND FOLLOWUP: Cardiac evaluation, history of coronary artery disease, status post PTCA in 2014, admitted with abdominal pain, pancreatic cancer with metastatic. SUBJECTIVE: The patient denies any chest pain, shortness of breath or any palpitation. OBJECTIVE: GENERAL: Not in apparent distress. VITAL SIGNS: Temperature afebrile, heart rate 89, blood pressure 93/59. HEENT: PERRLA. Extraocular muscles intact. NECK: Supple. No carotid bruit. No thyromegaly. CHEST: Clear to auscultation. HEART: S1, S2. Regular. ABDOMEN: Soft. EXTREMITIES: Clubbing and cyanosis, negative. LABORATORY DATA: Blood workup as follows. WBC 5.8, hemoglobin 9.8, hematocrit 30.5, platelet count 248. Chemistries show sodium 134, potassium 3.7, chloride 105, carbon dioxide 23, anion gap of 10, BUN 23, creatinine 0.3. IMPRESSION: An 88-year-old male with past medical history significant for coronary artery disease, status post percutaneous transluminal coronary angioplasty 4 years ago, admitted with abdominal pain, history of bilateral inguinal hernia repair, history of chronic anemia, history of pancreatic cancer with metastatic, history of cardiac catheterization 05/13/2015, two vessels left anterior descending and right coronary artery, as percutaneous transluminal coronary angioplasty was done. Currently, the patient is asymptomatic. RECOMMENDATIONS: Aggressive medical treatment, discussed with son and daughter. The patient has poor appetite, supportive care. No active cardiac issues at this time. We will sign off and would like to follow up p.r.n. We will supplement potassium. In case support and we will put some Ensure because of protein-calorie malnutrition 2.4, moderate severe, though it was present on admission 2.9 is mild. We will also supplement potassium as mentioned. We will sign off and would like to follow up p.r.n. Thank you, Dr. Tatum, for providing us the opportunity in taking care of the patient, Raymundo Godoy. Junior Verma MD [facility] # [id number]
[2019-04-06] MEDS: Sodium Chloride 0.9% 1,000 ML IV SCH ×3 (02:02→16:45)
[2019-04-06] MEDS: Piperacill/Tazo 4.5gm in NS 4.5 GM/100 ML BAG IVPB SCH (05:06)
--- NOTE | 2019-04-06 07:25 | CP.PCM.PN ---
<Karlos Smith Elena - Last Filed: 04/06/19 07:07> Subjective - Date & Time of Evaluation Date of Evaluation: 04/05/19 Time of Evaluation: 07:07 - Subjective Subjective: Heme/onc progress note - Luis PGY - 2 Patient seen and examined at bedside with no acute overnight events. Patient complaining of testicular pain this morning. Objective - Vital Signs/Intake and Output Vital Signs (last 24 hours): Temp Pulse Resp BP Pulse Ox 99 F 89 20 93/57 L 96 04/05/19 08:05 04/05/19 11:02 04/05/19 08:05 04/05/19 08:05 04/05/19 11:02 Intake and Output: 04/06/19 04/06/19 06:59 18:59 Intake Total 940 Balance 940 - Medications Medications: Current Medications Acetaminophen (Tylenol 325mg Tab) 650 mg PO Q4H PRN PRN Reason: Pain, Mild (1-3) Last Admin: 04/05/19 12:45 Dose: 650 mg Aspirin (Ecotrin) 81 mg PO DAILY [facility] Last Admin: 04/05/19 10:50 Dose: 81 mg Dronabinol (Marinol) 2.5 mg PO BID [facility] Last Admin: 04/05/19 18:52 Dose: 2.5 mg Famotidine (Pepcid) 20 mg PO DAILY [facility] Last Admin: 04/05/19 10:43 Dose: 20 mg Fludrocortisone Acetate (Florinef) 0.1 mg PO DAILY [facility] Last Admin: 04/05/19 16:13 Dose: 0.1 mg Home Med (Home Med) 1 unit IH DAILY [facility] Last Admin: 04/05/19 10:43 Dose: 1 unit Piperacillin Sod/Tazobactam Sod (Zosyn 4.5 Gm In Ns 100ml) 4.5 gm in 100 mls @ 25 mls/hr IVPB Q8 [facility]; Protocol Stop: 04/10/19 22:01 Last Admin: 04/06/19 05:06 Dose: 25 mls/hr Sodium Chloride (Sodium Chloride 0.9%) 1,000 mls @ 100 mls/hr IV .Q10H [facility] Last Admin: 04/06/19 02:02 Dose: 100 mls/hr Lactulose (Enulose) 10 gm PO BID [facility] Last Admin: 04/05/19 18:52 Dose: 10 gm Morphine Sulfate (Morphine) 1 mg IVP Q4 PRN PRN Reason: Pain, severe (8-10) Last Admin: 04/05/19 04:15 Dose: 1 mg (Fluticasone/Vilanterol [Breo Ellipta 100-25 Mcg Inh] 1 Puff) 1 puff IH QAM [facility] Last Admin: 04/05/19 10:43 Dose: [address] [place] [id number] /[id number] Units Capsule ] (Home Med) 1 cap PO AC [facility] Last Admin: 04/05/19 16:13 Dose: 1 cap Ondansetron HCl (Zofran Inj) 4 mg IVP Q6 PRN PRN Reason: Nausea/Vomiting Simethicone (Mylicon Liq) 80 mg PO TID [facility] Last Admin: 04/05/19 18:52 Dose: Not Given Tamsulosin HCl (Flomax) 0.4 mg PO DAILY [facility] Last Admin: 04/05/19 10:43 Dose: 0.4 mg Tramadol HCl (Ultram) 50 mg PO Q8 PRN PRN Reason: Pain, moderate (4-7) Last Admin: 04/05/19 08:33 Dose: 50 mg - Labs Labs: 04/05/19 05:10 04/05/19 05:10 PT 11.9 SECONDS (9.4-12.5) 04/01/19 18:06 INR 1.07 04/01/19 18:06 APTT 30.7 Seconds (26.9-38.3) 04/01/19 18:06 - Constitutional Appears: Well, Non-toxic, Chronically Ill - Head Exam Head Exam: ATRAUMATIC, NORMAL INSPECTION, NORMOCEPHALIC - Eye Exam Eye Exam: EOMI, Normal appearance, PERRL Pupil Exam: NORMAL ACCOMODATION, PERRL - ENT Exam ENT Exam: Mucous Membranes Moist, Normal Exam - Neck Exam Neck Exam: Full ROM, Normal Inspection. absent: Lymphadenopathy - Respiratory Exam Respiratory Exam: Clear to Ausculation Bilateral, NORMAL BREATHING PATTERN - Cardiovascular Exam Cardiovascular Exam: REGULAR RHYTHM, +S1, +S2. absent: Murmur - GI/Abdominal Exam GI & Abdominal Exam: Soft, Normal Bowel Sounds. absent: Tenderness - Extremities Exam Extremities Exam: Full ROM, Normal Capillary Refill, Normal Inspection. absent: Joint Swelling, Pedal Edema - Back Exam Back Exam: NORMAL INSPECTION - Neurological Exam Neurological Exam: Alert, Awake, CN II-XII Intact, Normal Gait, Oriented x3 - Psychiatric Exam Psychiatric exam: Normal Affect, Normal Mood - Skin Skin Exam: Dry, Intact, Normal Color, Warm Assessment and Plan - Assessment and Plan (Free Text) Assessment: Pancreatic CA Acute diarrhea likely 2/2 Lactulose Acute pain 2/2 malignancy Possible severe sepsis Asthma Hyperlipidemia BPH CAD Constipation Anemia of chronic disease Transaminitis Plan: Will continue to treat patient for now, after extensive discussion with family, for possible severe sepsis. Patient's transaminitis and total bili are improving for now. Will continue lactulose for hyperammonemia. Will continue antibiotics, given elevated procal. Spoke with family about comfort measures but they and patient do not want that right now. Patient pain controlled with Tramadol. Currently on Zosyn. Added simethicone for constipation. ACEP for f ever and pain. Had conversation regarding DNR/DNI with family; they are not amenable at this time. <Katy Pearson P - Last Filed: 04/06/19 22:49> Objective - Vital Signs/Intake and Output Vital Signs (last 24 hours): Temp Pulse Resp BP Pulse Ox 98.1 F 87 18 104/59 L 94 L 04/06/19 16:21 04/06/19 16:21 04/06/19 16:21 04/06/19 16:21 04/06/19 16:21 Intake and Output: 04/06/19 04/07/19 18:59 06:59 Intake Total 1200 780 Balance 1200 780 - Medications Medications: Current Medications Acetaminophen (Tylenol 325mg Tab) 650 mg PO Q4H PRN PRN Reason: Pain, Mild (1-3) Last Admin: 04/05/19 12:45 Dose: 650 mg Amoxicillin/Clavulanate Potassium (Augmentin 875 Mg-125 Mg Tab) 1 tab PO Q12 [facility]; Protocol Stop: 04/11/19 22:01 Last Admin: 04/06/19 21:42 Dose: 1 tab Aspirin (Ecotrin) 81 mg PO DAILY [facility] Last Admin: 04/06/19 09:34 Dose: 81 mg Dronabinol (Marinol) 2.5 mg PO BID [facility] Last Admin: 04/06/19 18:30 Dose: 2.5 mg Famotidine (Pepcid) 20 mg PO DAILY [facility] Last Admin: 04/06/19 09:34 Dose: 20 mg Fludrocortisone Acetate (Florinef) 0.1 mg PO DAILY [facility] Last Admin: 04/06/19 09:34 Dose: 0.1 mg Home Med (Home Med) 1 unit IH DAILY [facility] Last Admin: 04/06/19 09:34 Dose: 1 unit Sodium Chloride (Sodium Chloride 0.9%) 1,000 mls @ 75 mls/hr IV .[id number] [facility] Last Admin: 04/06/19 22:19 Dose: 75 mls/hr Lactobacillus Acidophilus (Bacid Acidophilus) 1 cap PO BID [facility] Last Admin: 04/06/19 18:26 Dose: 1 cap Lactulose (Enulose) 10 gm PO BID [facility] Last Admin: 04/06/19 18:25 Dose: 10 gm Morphine Sulfate (Morphine) 1 mg IVP Q4 PRN PRN Reason: Pain, severe (8-10) Last Admin: 04/05/19 04:15 Dose: 1 mg (Fluticasone/Vilanterol [Breo Ellipta 100-25 Mcg Inh] 1 Puff) 1 puff IH QAM [facility] Last Admin: 04/06/19 09:35 Dose: [address] [place] [address] [id number] /[id number] Units Capsule ] (Home Med) 1 cap PO AC [facility] Last Admin: 04/06/19 18:25 Dose: 1 cap Ondansetron HCl (Zofran Inj) 4 mg IVP Q6 PRN PRN Reason: Nausea/Vomiting Simethicone (Mylicon Liq) 80 mg PO TID [facility] Last Admin: 04/06/19 18:26 Dose: 80 mg Tamsulosin HCl (Flomax) 0.4 mg PO DAILY [facility] Last Admin: 04/06/19 09:34 Dose: 0.4 mg Tramadol HCl (Ultram) 50 mg PO Q8 PRN PRN Reason: Pain, moderate (4-7) Last Admin: 04/06/19 16:52 Dose: 50 mg - Labs Labs: 04/05/19 05:10 04/05/19 05:10 PT 11.9 SECONDS (9.4-12.5) 04/01/19 18:06 INR 1.07 04/01/19 18:06 APTT 30.7 Seconds (26.9-38.3) 04/01/19 18:06 Attending/Attestation - Attestation I have personally seen and examined this patient.: Yes I have fully participated in the care of the patient.: Yes I have reviewed all pertinent clinical information, including history, physical exam and plan: Yes
--- NOTE | 2019-04-06 07:51 | PN ---
DATE: 04/06/2019 SUBJECTIVE: The patient appears comfortable this morning. He is not short of breath at rest. He does appear weak. PHYSICAL EXAMINATION: VITAL SIGNS: (Last noted in the computer): Temperature is 99, pulse 89, respirations 18/20, last blood pressure recorded 93/57. Oxygen saturation on room air - 96%. HEENT: Normocephalic, atraumatic. No JVD. CARDIOVASCULAR: Systolic ejection murmur at the lower left sternal border. No S3 gallop. LUNGS: Decreased breath sounds at the bases. No rhonchi. No wheezing. EXTREMITIES: Mild edema, no cyanosis, no clubbing. Calves are nontender to palpation. GASTROINTESTINAL: Abdomen is soft. It is less distended and less tender to palpation. Bowel sounds are positive. SKIN: No acute rash. NEUROLOGIC: Exam limited at the present time. IMPRESSION: 1. Stage IV metastatic pancreatic cancer. 2. Failure thrive. 3. Pulmonary nodules. 4. Chronic obstructive pulmonary disease. PLAN: The patient appears comfortable this morning. He is not short of breath at rest. I did discuss the case with the son (at bedside) at length. The son stated that his father (the patient) had an uneventful night. On physical exam, there is no significant bronchospasm noted. In addition, there is no significant alveolar arterial gradient. I will continue the current pulmonary medications for now. I did go over the importance with both children - in reference to rinsing the patient's mouth after he takes his pulmonary medications. They fully understand. Inputs by Cardiology, Oncology, Infectious Disease are noted. Clinical status of the patient does appear improved - compared to the initial presentation. However, again, the future status/prognosis for this patient remains very poor. As above, the patient does appear very weak. Perhaps, a short stay on the transitional unit would benefit this patient. I will discuss the above with the attending physician. Panda Garcia MD MTDD
[2019-04-06] MEDS: [UNRECOGNIZED DRUG - OTHER] PO SCH ×3 (08:38→18:25)
[2019-04-06] MEDS: Simethicone 40 mg/0.6 ml Liquid (30 ml) PO SCH ×3 (10:00→18:26)
[2019-04-06] MEDS: Lactobacillus Acidophilus 500 MU Cap PO SCH ×2 (11:37→18:26)
[2019-04-06] MEDS ORDERED: Albumin Human 25% (25 gm/100 ml) IV ONE (12:42)
--- NOTE | 2019-04-06 13:52 | CP.PCM.PCO ---
Additional Comments - Additional Comments Additional Comments: Patient comfortable, laying in bed. Abdomen distended. IR consult pending for eval of aspira catheter drain insertion. Continue antibiotics as per I.D. Albumin ordered, monitor protein levels. will continue to monitor clinical status and follow closely.
--- NOTE | 2019-04-06 13:58 | PN ---
DATE: 04/06/2019 SUBJECTIVE: The patient is in bed in no acute distress, nontoxic. PHYSICAL EXAMINATION: VITAL SIGNS: Temperature is 97, blood pressure is 104/50, respiratory rate of 18. HEENT: Unremarkable. NECK: Supple. LUNGS: Have decreased breath sounds. HEART: Normal S1, S2. ABDOMEN: Soft, nontender. LABORATORY EXAMINATION: Reveals the patient's white count of 5.8, hemoglobin of 9, platelets of 248. Chemistries are noted. LFTs are noted. Microbiology is noted. ASSESSMENT AND PLAN: This is an 88-year-old seen earlier today. The patient's daughter is at the bedside, so was the son, and the patient initially admitted with severe sepsis, probably biliary obstruction versus spontaneous bacterial peritonitis and does have a Port-A-Cath, although the blood cultures are negative. Today is day #5 of Zosyn. We will discontinue the Zosyn and complete with p.o. Augmentin 875 p.o. twice a day x5 days. Overall prognosis is quite poor. Should consider hospice setting for this patient who is end-stage. We will stop the wound. Toby Abebe MD
[2019-04-06] MEDS ORDERED: Albumin Human 25% (12.5 gm/50 ml) IV SCH (14:15)
--- NOTE | 2019-04-06 14:20 | CP.PCM.PN ---
<Karlos Smith Elena - Last Filed: 04/06/19 14:22> Subjective - Date & Time of Evaluation Date of Evaluation: 04/06/19 Time of Evaluation: 07:00 - Subjective Subjective: Heme/onc Progress note-Luis pgy2 The patient was seen and examined at bedside. Patients family is at bedside including his son and daughter. Patient himself only has acute complaints of the of Amaury pain that hes been complaining of for a few days. The son and daughter are worried about the amount of ascites and the patients belly. Patient denies any shortness of breath or chest pain nausea vomiting. Continues to have diarrhea on lactulose Objective - Vital Signs/Intake and Output Vital Signs (last 24 hours): Temp Pulse Resp BP Pulse Ox 97.9 F 92 H 20 104/58 L 91 L 04/06/19 06:00 04/06/19 06:00 04/06/19 06:00 04/06/19 06:00 04/06/19 06:00 Intake and Output: 04/06/19 04/06/19 06:59 18:59 Intake Total 940 Balance 940 - Medications Medications: Current Medications Acetaminophen (Tylenol 325mg Tab) 650 mg PO Q4H PRN PRN Reason: Pain, Mild (1-3) Last Admin: 04/05/19 12:45 Dose: 650 mg Albumin Human (Albumin Human 25% (12.5 Gm/50 Ml)) 12.5 gm IV BID [facility] Stop: 04/07/19 10:01 Amoxicillin/Clavulanate Potassium (Augmentin 875 Mg-125 Mg Tab) 1 tab PO Q12 [facility]; Protocol Stop: 04/11/19 22:01 Aspirin (Ecotrin) 81 mg PO DAILY [facility] Last Admin: 04/06/19 09:34 Dose: 81 mg Dronabinol (Marinol) 2.5 mg PO BID [facility] Last Admin: 04/06/19 09:34 Dose: 2.5 mg Famotidine (Pepcid) 20 mg PO DAILY [facility] Last Admin: 04/06/19 09:34 Dose: 20 mg Fludrocortisone Acetate (Florinef) 0.1 mg PO DAILY [facility] Last Admin: 04/06/19 09:34 Dose: 0.1 mg Home Med (Home Med) 1 unit IH DAILY [facility] Last Admin: 04/06/19 09:34 Dose: 1 unit Sodium Chloride (Sodium Chloride 0.9%) 1,000 mls @ 100 mls/hr IV .Q10H [facility] Last Admin: 04/06/19 07:30 Dose: 100 mls/hr Lactobacillus Acidophilus (Bacid Acidophilus) 1 cap PO BID [facility] Last Admin: 04/06/19 11:37 Dose: 1 cap Lactulose (Enulose) 10 gm PO BID [facility] Last Admin: 04/06/19 09:33 Dose: 10 gm Morphine Sulfate (Morphine) 1 mg IVP Q4 PRN PRN Reason: Pain, severe (8-10) Last Admin: 04/05/19 04:15 Dose: 1 mg (Fluticasone/Vilanterol [Breo Ellipta 100-25 Mcg Inh] 1 Puff) 1 puff IH QAM [facility] Last Admin: 04/06/19 09:35 Dose: [address] [id number] /[id number] Units Capsule ] (Home Med) 1 cap PO AC [facility] Last Admin: 04/06/19 11:38 Dose: 1 cap Ondansetron HCl (Zofran Inj) 4 mg IVP Q6 PRN PRN Reason: Nausea/Vomiting Simethicone (Mylicon Liq) 80 mg PO TID [facility] Last Admin: 04/05/19 18:52 Dose: Not Given Tamsulosin HCl (Flomax) 0.4 mg PO DAILY [facility] Last Admin: 04/06/19 09:34 Dose: 0.4 mg Tramadol HCl (Ultram) 50 mg PO Q8 PRN PRN Reason: Pain, moderate (4-7) Last Admin: 04/06/19 09:33 Dose: 50 mg - Labs Labs: 04/05/19 05:10 04/05/19 05:10 PT 11.9 SECONDS (9.4-12.5) 04/01/19 18:06 INR 1.07 04/01/19 18:06 APTT 30.7 Seconds (26.9-38.3) 04/01/19 18:06 - Constitutional Appears: Non-toxic, Chronically Ill - Head Exam Head Exam: ATRAUMATIC, NORMAL INSPECTION, NORMOCEPHALIC - Eye Exam Eye Exam: EOMI, Normal appearance, PERRL Pupil Exam: NORMAL ACCOMODATION, PERRL - ENT Exam ENT Exam: Mucous Membranes Moist, Normal Exam - Neck Exam Neck Exam: Full ROM, Normal Inspection. absent: Lymphadenopathy - Respiratory Exam Respiratory Exam: Clear to Ausculation Bilateral, NORMAL BREATHING PATTERN - Cardiovascular Exam Cardiovascular Exam: REGULAR RHYTHM, +S1, +S2. absent: Murmur - GI/Abdominal Exam GI & Abdominal Exam: Soft, Normal Bowel Sounds. absent: Tenderness - Extremities Exam Extremities Exam: Full ROM, Normal Capillary Refill, Normal Inspection. absent: Joint Swelling, Pedal Edema - Back Exam Back Exam: NORMAL INSPECTION - Neurological Exam Neurological Exam: Alert, Awake, CN II-XII Intact, Normal Gait, Oriented x3 - Psychiatric Exam Psychiatric exam: Normal Affect, Normal Mood - Skin Skin Exam: Dry, Intact, Normal Color, Warm Assessment and Plan - Assessment and Plan (Free Text) Assessment: Pancreatic CA Acute diarrhea likely 2/2 Lactulose Acute pain 2/2 malignancy Possible severe sepsis Asthma Hyperlipidemia BPH CAD Constipation Anemia of chronic disease Transaminitis Plan: Will continue to treat patient for now, after extensive discussion with family, for possible severe sepsis. Patient's transaminitis and total bili are improving for now. Will continue lactulose for hyperammonemia. Will continue antibiotics, given elevated procal. Spoke with family about comfort measures but they and patient do not want that right now. Patient pain controlled with Tramadol. Currently on Zosyn. Added simethicone for constipation. ACEP for fever and pain. Had conversation regarding DNR/DNI with family; they are not amenable at this time. given patients re-accumulation of acidic fluid, we will reach out to Dr. Albert Clark for the placement of an aspira catheter. Patient will be given another dose of albumin. Patient will be continued on antibiotics for now, the blood cultures urine cultures Remain negative. Patient continues to not have a white count remains afebrile and only has a minor elevation in pro calcitonin. <Katy Pearson - Last Filed: 04/06/19 22:48> Objective - Vital Signs/Intake and Output Vital Signs (last 24 hours): Temp Pulse Resp BP Pulse Ox 98.1 F 87 18 104/59 L 94 L 04/06/19 16:21 04/06/19 16:21 04/06/19 16:21 04/06/19 16:21 04/06/19 16:21 Intake and Output: 04/06/19 04/07/19 18:59 06:59 Intake Total 1200 780 Balance 1200 780 - Medications Medications: Current Medications Acetaminophen (Tylenol 325mg Tab) 650 mg PO Q4H PRN PRN Reason: Pain, Mild (1-3) Last Admin: 04/05/19 12:45 Dose: 650 mg Amoxicillin/Clavulanate Potassium (Augmentin 875 Mg-125 Mg Tab) 1 tab PO Q12 [facility]; Protocol Stop: 04/11/19 22:01 Last Admin: 04/06/19 21:42 Dose: 1 tab Aspirin (Ecotrin) 81 mg PO DAILY [facility] Last Admin: 04/06/19 09:34 Dose: 81 mg Dronabinol (Marinol) 2.5 mg PO BID [facility] Last Admin: 04/06/19 18:30 Dose: 2.5 mg Famotidine (Pepcid) 20 mg PO DAILY [facility] Last Admin: 04/06/19 09:34 Dose: 20 mg Fludrocortisone Acetate (Florinef) 0.1 mg PO DAILY [facility] Last Admin: 04/06/19 09:34 Dose: 0.1 mg Home Med (Home Med) 1 unit IH DAILY [facility] Last Admin: 04/06/19 09:34 Dose: 1 unit Sodium Chloride (Sodium Chloride 0.9%) 1,000 mls @ 75 mls/hr IV .[id number] [facility] Last Admin: 04/06/19 22:19 Dose: 75 mls/hr Lactobacillus Acidophilus (Bacid Acidophilus) 1 cap PO BID [facility] Last Admin: 04/06/19 18:26 Dose: 1 cap Lactulose (Enulose) 10 gm PO BID [facility] Last Admin: 04/06/19 18:25 Dose: 10 gm Morphine Sulfate (Morphine) 1 mg IVP Q4 PRN PRN Reason: Pain, severe (8-10) Last Admin: 04/05/19 04:15 Dose: 1 mg (Fluticasone/Vilanterol [Breo Ellipta 100-25 Mcg Inh] 1 Puff) 1 puff IH QAM [facility] Last Admin: 04/06/19 09:35 Dose: [address] [place] [address] [id number] /[id number] Units Capsule ] (Home Med) 1 cap PO AC [facility] Last Admin: 04/06/19 18:25 Dose: 1 cap Ondansetron HCl (Zofran Inj) 4 mg IVP Q6 PRN PRN Reason: Nausea/Vomiting Simethicone (Mylicon Liq) 80 mg PO TID [facility] Last Admin: 04/06/19 18:26 Dose: 80 mg Tamsulosin HCl (Flomax) 0.4 mg PO DAILY [facility] Last Admin: 04/06/19 09:34 Dose: 0.4 mg Tramadol HCl (Ultram) 50 mg PO Q8 PRN PRN Reason: Pain, moderate (4-7) Last Admin: 04/06/19 16:52 Dose: 50 mg - Labs Labs: 04/05/19 05:10 04/05/19 05:10 PT 11.9 SECONDS (9.4-12.5) 04/01/19 18:06 INR 1.07 04/01/19 18:06 APTT 30.7 Seconds (26.9-38.3) 04/01/19 18:06 Attending/Attestation - Attestation I have personally seen and examined this patient.: Yes I have fully participated in the care of the patient.: Yes I have reviewed all pertinent clinical information, including history, physical exam and plan: Yes
--- NOTE | 2019-04-06 18:19 | US ---
PROCEDURE: Ultrasound guided paracentesis. HISTORY: Metastatic pancreatic CA. Ascites with abdominal pain and distension. Needs therapeutic paracentesis PHYSICIAN(S): Albert Clark MD. TECHNIQUE: The relative risks and indications for the procedure were explained to the patient and his daughter and informed written consent obtained. Sonography of the abdomen was performed in a slight right decubitus position. This revealed a small to moderate amount of non-loculated ascites, greatest in the right lower quadrant. A puncture site was selected and the area was prepped and draped in the usual sterile fashion. 1% Xylocaine was used to anesthetize the skin and soft tissues. A 7 [place] paracentesis catheter was trocared into the right lower quadrantand 3200 cc of yellow fluid aspirated. No labs were sent. IMPRESSION: Ultrasound-guided paracentesis in the right lower quadrant. 3200 cc of fluid was aspirated.
[2019-04-06] MEDS ORDERED: Sodium Chloride 0.9% 1,000 ML IV SCH (19:31)
[2019-04-06] MEDS: Amoxicillin-Clav 875-125 mg Tab PO SCH (21:42)
[2019-04-07 06:27] LABS: BASO # 0.02 K/mm3 (0.0-2.0); BASO % 0.4 % (0.0-3.0); EOS # 0.1 (0.0-0.7); EOS % 1.2 % (1.5-5.0); HEMOGLOBIN 9.6 g/dL (14.0-18.0); LYMPH # 1.2 (1.2-3.4); LYMPH % 20.7 % (22.0-35.0); MEAN CORPUSCULAR HEMOGLOBIN 27.7 pg (25.0-35.0); MEAN CORPUSCULAR HGB CONC 32.5 g/dl (31.0-37.0); MEAN PLATELET VOLUME 9.7 fl (7.0-11.0); MONO # 0.8 (0.1-0.6); MONO % 14.8 % (1.0-6.0); RBC 3.47 10^6/uL (3.5-6.1); RED CELL DISTRIBUTION WIDTH 18.1 % (11.5-14.5); WHITE BLOOD COUNT 5.7 10^3/uL (4.5-11.0)
[2019-04-07 07:19] LABS: ALBUMIN 2.5 g/dL (3.0-4.8); ALT/SGPT 112 U/L (7-56); AST/SGOT 116 U/L (17-59); BLOOD UREA NITROGEN 9 mg/dL (7-21); CALCIUM 8.6 mg/dL (8.4-10.5); GFR NON-AFRICAN AMERICAN > 60
--- NOTE | 2019-04-07 08:19 | PN ---
DATE: 04/06/2019 This is a dictation addition to the progress note dictated by my resident earlier today. I had a long discussion with the patient, the patient's family including daughter, son-in-law, and son. The patient just had a paracentesis done of more than 3100 mL of fluid removed which was clear to yellow in color. The patient feels comfortable after the ascitic fluid tap. The patient received tramadol. Before that, he received IV albumin 25 g one dose tonight and given another dose earlier in the morning. The patient's current medications were reviewed that he is currently taking. I discussed my plans with the family. Blood pressure currently is holding above 100 with the addition of a new medicine to the regimen consisting of fludrocortisone 0.1 mg p.o. daily. The patient is on fluticasone/vilanterol one puff inhaled once in the morning for his COPD. He is on amoxicillin 875 mg p.o. every 12 hours. He is on Lactobacillus. He is on Ultram 50 mg p.o. every 8 hours p.r.n. He is on Ecotrin 81 mg p.o. daily. He is on Incruse Ellipta home medicine 62.5 mcg one unit inhaled daily, Tylenol p.r.n., Flomax 0.4 mg daily. He is on Enulose 10 g p.o. b.i.d. He is on morphine 1 mg IV every 4 hours p.r.n., he is on Marinol 5 mg p.o. b.i.d., Pepcid 20 mg p.o. daily. He is on Creon 24,000 units one capsule p.o. before meals and at bedtime. He is on Mylicon liquid 80 mg p.o. t.i.d. and he is also on Florinef 0.1 mg p.o. daily and acidophilus one cap p.o. b.i.d. The patient's IV fluid has been decreased to 75 mL/hour. We will continue to monitor the patient over the next 12 hours. If he continues to hold his own, we will plan on early discharge and evaluate for home services. Condition of the patient is fair. Overall prognosis is, however, guarded. We are looking to keep the patient comfortable as an outpatient. If he should deteriorate, we are planning for hospice as well. Currently, the blood pressure is holding over 104/58 on at least three separate occasions. Visiting nurses have already been contacted so arrangements can be made for home visits as well. The patient is able to keep food down without significant nausea at this point, which is a positive sign for the patient. Family is quite aware of the patient's prognosis, but they are still wanting to keep the patient as comfortable as possible until the very end. He is still having leakage of ascitic fluid from the previous site where he had the Aspira catheter for which he has a colostomy bag over that site and the drainage is gradually decreasing. We will have to watch for any leakage from the current site where he had the ascitic fluid tapped again today. Please make a note this is a complex patient with multiple comorbid medical issues. Time spent for the patient and the family in excess of 80 minutes. Hospice plans were also discussed with the family. Katy Pearson MD
--- NOTE | 2019-04-07 08:57 | PN ---
DATE: 04/07/2019 SUBJECTIVE: The patient appears comfortable this morning. He is not short of breath at rest. PHYSICAL EXAMINATION: VITAL SIGNS: (Last noted in the computer): Temperature is 98.1, pulse 87, respirations 18, blood pressure 104/59. Oxygen saturation on room air - 94%. HEENT: Normocephalic, atraumatic. No JVD. CARDIOVASCULAR: Systolic ejection murmur at the lower left sternal border. No S3 gallop. LUNGS: Decreased breath sounds at the bases. No rhonchi. No wheezing. Extremities: Mild edema, no cyanosis, no clubbing. Calves are nontender to palpation. GASTROINTESTINAL: Abdomen is soft. It is much less distended and less tender to palpation. Bowel sounds are positive. SKIN: No acute rash. NEUROLOGIC: Exam limited at the present time. IMPRESSION: 1. Stage IV metastatic pancreatic cancer. 2. Failure to thrive. 3. Pulmonary nodules. 4. Chronic obstructive pulmonary disease. PLAN: The patient appears comfortable this morning. He is not short of breath at rest. I did discuss the case with the son (at bedside) at length. The son stated that the patient had an uneventful night. On physical exam, there is no significant bronchospasm noted. In addition, there is no significant alveolar arterial gradient. I will continue the current pulmonary medications for now. Inputs by Infectious Disease and Oncology are also noted. In addition, the patient did have a paracentesis by Dr. Albert Clark yesterday. Clinical status of the patient is improved - compared to the initial presentation. However, unfortunately, the future status/prognosis for this patient remains very poor. All are aware. The patient is for discharge in the very near future. I will discuss the above with the attending physician. Panda Garcia MD MTDD
[2019-04-07] MEDS: [UNRECOGNIZED DRUG - OTHER] PO SCH ×3 (08:59→17:16)
[2019-04-07] MEDS: Amoxicillin-Clav 875-125 mg Tab PO SCH (09:00)
[2019-04-07] MEDS: Lactobacillus Acidophilus 500 MU Cap PO SCH ×2 (09:00→17:15)
[2019-04-07] MEDS ORDERED: Potassium Chloride 20 mEq/15 ml LIQ UD PO STA (09:47)
--- NOTE | 2019-04-07 10:01 | CP.PCM.PN ---
Subjective - Date & Time of Evaluation Date of Evaluation: 04/07/19 Time of Evaluation: 09:47 - Subjective Subjective: Heme/Onc progress note - Luis PGY - 2 Patient seen and examined at bedside. Patient had 3200 cc's drained during paracentesis yesterday. Patient currently in mild pain but is generally comfortable. Objective - Vital Signs/Intake and Output Vital Signs (last 24 hours): Temp Pulse Resp BP Pulse Ox 97.8 F 89 17 90/51 L 93 L 04/07/19 06:00 04/07/19 06:00 04/07/19 06:00 04/07/19 06:00 04/07/19 06:00 Intake and Output: 04/07/19 04/07/19 06:59 18:59 Intake Total 2019 Balance 2019 - Medications Medications: Current Medications Acetaminophen (Tylenol 325mg Tab) 650 mg PO Q4H PRN PRN Reason: Pain, Mild (1-3) Last Admin: 04/05/19 12:45 Dose: 650 mg Amoxicillin/Clavulanate Potassium (Augmentin 875 Mg-125 Mg Tab) 1 tab PO Q12 [facility]; Protocol Stop: 04/11/19 22:01 Last Admin: 04/07/19 09:00 Dose: 1 tab Aspirin (Ecotrin) 81 mg PO DAILY [facility] Last Admin: 04/07/19 09:02 Dose: 81 mg Dronabinol (Marinol) 2.5 mg PO BID [facility] Last Admin: 04/07/19 09:00 Dose: 2.5 mg Famotidine (Pepcid) 20 mg PO DAILY [facility] Last Admin: 04/07/19 09:01 Dose: 20 mg Fludrocortisone Acetate (Florinef) 0.1 mg PO DAILY [facility] Last Admin: 04/07/19 09:02 Dose: 0.1 mg Home Med (Home Med) 1 unit IH DAILY [facility] Last Admin: 04/07/19 09:04 Dose: 1 unit Sodium Chloride (Sodium Chloride 0.9%) 1,000 mls @ 75 mls/hr IV .[id number] [facility] Last Admin: 04/06/19 22:19 Dose: 75 mls/hr Lactobacillus Acidophilus (Bacid Acidophilus) 1 cap PO BID [facility] Last Admin: 04/07/19 09:00 Dose: 1 cap Lactulose (Enulose) 10 gm PO BID [facility] Last Admin: 04/07/19 09:02 Dose: 10 gm Morphine Sulfate (Morphine) 1 mg IVP Q4 PRN PRN Reason: Pain, severe (8-10) Last Admin: 04/05/19 04:15 Dose: 1 mg (Fluticasone/Vilanterol [Breo Ellipta 100-25 Mcg Inh] 1 Puff) 1 puff IH QAM [facility] Last Admin: 04/07/19 09:04 Dose: [address] [place] [id number] /[id number] Units Capsule ] (Home Med) 1 cap PO AC [facility] Last Admin: 04/07/19 08:59 Dose: 1 cap Ondansetron HCl (Zofran Inj) 4 mg IVP Q6 PRN PRN Reason: Nausea/Vomiting Simethicone (Mylicon Liq) 80 mg PO TID [facility] Last Admin: 04/06/19 18:26 Dose: 80 mg Tamsulosin HCl (Flomax) 0.4 mg PO DAILY [facility] Last Admin: 04/07/19 09:01 Dose: 0.4 mg Tramadol HCl (Ultram) 50 mg PO Q8 PRN PRN Reason: Pain, moderate (4-7) Last Admin: 04/07/19 00:45 Dose: 50 mg - Labs Labs: 04/07/19 06:00 04/07/19 06:00 PT 11.9 SECONDS (9.4-12.5) 04/01/19 18:06 INR 1.07 04/01/19 18:06 APTT 30.7 Seconds (26.9-38.3) 04/01/19 18:06 - Constitutional Appears: Well - Head Exam Head Exam: ATRAUMATIC, NORMAL INSPECTION, NORMOCEPHALIC - Eye Exam Eye Exam: EOMI, Normal appearance, PERRL Pupil Exam: NORMAL ACCOMODATION, PERRL - ENT Exam ENT Exam: Mucous Membranes Moist, Normal Exam - Neck Exam Neck Exam: Full ROM, Normal Inspection. absent: Lymphadenopathy - Respiratory Exam Respiratory Exam: Clear to Ausculation Bilateral, NORMAL BREATHING PATTERN - Cardiovascular Exam Cardiovascular Exam: REGULAR RHYTHM, +S1, +S2. absent: Murmur - GI/Abdominal Exam GI & Abdominal Exam: Soft, Normal Bowel Sounds. absent: Tenderness Additional comments: TTP in RLQ and LLQ - Extremities Exam Extremities Exam: Full ROM, Normal Capillary Refill, Normal Inspection. absent: Joint Swelling, Pedal Edema - Back Exam Back Exam: NORMAL INSPECTION - Neurological Exam Neurological Exam: Alert, Awake, CN II-XII Intact, Normal Gait, Oriented x3 - Psychiatric Exam Psychiatric exam: Normal Affect, Normal Mood - Skin Skin Exam: Dry, Intact, Normal Color, Warm Assessment and Plan - Assessment and Plan (Free Text) Assessment: Pancreatic CA Acute diarrhea likely 2/2 Lactulose Acute pain 2/2 malignancy Possible severe sepsis Asthma Hyperlipidemia BPH CAD Constipation Anemia of chronic disease Transaminitis Plan: Spoke with family about comfort measures but they and patient do not want that right now. Patient pain controlled with Tramadol. Added simethicone for constipation, as well as probiotics. ACEP for fever and pain. Had conversation regarding DNR/DNI with family; they are not amenable at this time. Will continue to treat patient for now, after extensive discussion with family, for possible severe sepsis, which is resolving. Will continue antibiotics, given elevated procal; patient has been changed from Zosyn to po Augmentin. Patient's transaminitis and total bili are improving for now. Will continue lactulose for hyperammonemia, which is improved today to 30. In light of patients re-accumulation of ascitic fluid, Dr. Clark drained 3200 cc yesterday; no labs were sent, patient more comfortable. Patient was given another dose of albumin yesterday; one more dose will be given today. Will add low dose Aldactone for ascites support
[2019-04-07] MEDS ORDERED: Albumin Human 25% (12.5 gm/50 ml) IV ONE (10:03)
[2019-04-07] MEDS: Simethicone 40 mg/0.6 ml Liquid (30 ml) PO SCH ×3 (10:49→17:16)
[2019-04-07] MEDS ORDERED: Bacitracin 500 Units/gm Oint Foilpak UD TOP ONE (13:18)
--- NOTE | 2019-04-07 14:21 | PCM.PCON ---
History of Present Illness - History of Present Illness History of Present Illness: Palliative consult requested by Dr. Rolf Pearson Reason: Goals of Care 88 year old male who originally presented from home for progressive worsening abdominal pain, loss of appetite, and episodes of nausea and vomiting. Paracentesis US: US guided paracentesis in RLQ; 3200cc aspirated Chest X-Ray: No active disease; Multiple R lung nodular opacities CT Abdomen/Pelvis: Infectious/inflammatory colitis from cecum to splenic flexure; re-demonstration of low-attenuation mass at the head neck junction of the pancreas; Increased amount of perihepatic, perisplenic and pelvic ascites; Multiple bibasilar pulmonary nodules EKG: NSR with frequent PVC's, RBBB Labs: Hemoglobin/Hematocrit: 9.6/29.5; Potassium: 3.5; T. Bili: 2.1, AST/ALT: 116/112, Alk. Phos: 1423; Procalcitonin: 0.9 PMHx: CAD, asthma, BPH, GERD, HLD, stage IV metastatic pancreatic adenocarcinoma PSHx: Inguinal hernia repair, R portacath, percutaneous coronary stent 2014, spinal surgery, open appendectomy Social History: Former smoker with 50 year pack smoking history (Quit 20 years ago); Former use of alcohol daily (whiskey) but quit one year ago; Denies any illicit drug abuse Family History: Non-contributory Review of System: 12 point ROS reviewed with patient and found to be unremarkable Review of Systems - Review of Systems Review of Systems: As stated in HPI, otherwise negative Physical Exam - Constitutional Appears: Cachectic, Chronically Ill Additional comments: Vital Signs: Temp: 97.8 degrees, HR: 89 beats/min, BP: 90/51mmHg, RR: 17 breath s/min, O2 Sat: 93% on room air - Head Exam Head Exam: ATRAUMATIC - Eye Exam Eye Exam: EOMI - ENT Exam ENT Exam: Mucous Membranes Moist - Respiratory Exam Respiratory Exam: Clear to Auscultation Bilateral, NORMAL BREATHING PATTERN - Cardiovascular Exam Cardiovascular Exam: REGULAR RHYTHM, +S1, +S2 - GI/Abdominal Exam GI & Abdominal Exam: Normal Bowel Sounds, Soft, Tenderness (RLQ/LLQ) - Neurological Exam Neurological exam: Alert, Oriented x3 - Psychiatric Exam Psychiatric exam: Normal Affect, Normal Mood - Skin Skin Exam: Dry, Intact, Warm Palliative Care Assessment - Pain Description Intensity of pain at present: 0 - Juan Scale Sensory Perception: Slightly Limited Moisture: Occasionally Moist Activity: Walks Occasionally Mobility: Slightly Impaired Nutrition: Probably Inadequate Friction & Shear: Potential Problem Total Score - Skin Risk Assessment: 16 - Psychosocial Distress Patient screened for psychosocial distress: Yes Outcome: Referred to social worker - Goals Treatment Goal(s): Alleviate symptoms, Improve ADLs, Improve quality of life End of life care discussed: Yes - Plan Interdisciplinary involved: Nurse, wax ball knock out worker, cage manager, Physician Discharge planning: Home Assessment & Plan - Assessment and Plan (Free Text) Assessment: This is an 88 year old male with a past medical history significant for CAD, asthma, BPH, GERD, HLD, stage IV metastatic pancreatic adenocarcinoma who originally presented from home with progressive worsening abdominal pain, loss of appetite and episodes of nausea and vomiting. Also found to have, colitis and ascites Discussion with patients children/ surrogate decision makers (Raymundo Godoy ) and daughter (Cherie JayneBenjiey ) regarding goals of care and advanced care planning. Patient and family intend to continue outpatient treatment of patients pancreatic adenocarcinoma. Patient and family are aware of the diagnosis and prognosis. They recognize an overall decline in patients health status recently. Patient children report they have had a discussion amongst themselves regarding patients resuscitation wishes as well as goals of care. Given this discussion, patient was aware and comfortable with POLST being completed by his children/decisions makers. They expressed that casey ent wished to be DNR/DNI. He also does not want feeding tubes or dialysis. Intent is to continue treatment and hospitalization as necessary. Psychosocial support provided. Time spent in goals of care and advanced care planning, 50 minutes Plan: Goals of care and advance care planning: POLST DNR/DNI Stage IV Pancreatic Adenocarcinoma; Continue follow up with oncology as an outpatient Patient to continue Augmentin and all home medications upon discharge as ordered - Date & Time Date: 04/07/19 Time: 14:21
[2019-04-07 17:45] VITALS: BP 100/59; PULSE 74; RESP 16; TEMP 97.4; O2SAT 94
--- NOTE | 2019-04-08 15:12 | CP.PCM.DIS ---
<Karlos Smith - Last Filed: 04/09/19 08:02> Provider - Provider Date of Admission: 04/01/19 20:14 Attending physician: Ruperto Tatum MD Consults: 04/01/19 20:10 Physician Consult Routine Comment: Consulting Provider: Junior Cavazos Consulting Physician: Junior Cavazos Reason for Consult: troponin 0.11, hx of sob 04/01/19 20:11 Physician Consult Routine Comment: Consulting Provider: Toby Abebe Consulting Physician: Toby Abebe Reason for Consult: abdominal pain, request by PMD 04/01/19 21:19 Consult [Physician Consult] Routine Comment: Consulting Provider: Raymundo Sinclair Consulting Physician: Raymundo Sinclair Reason for Consult: GI 04/01/19 21:20 Consult [Physician Consult] Routine Comment: Consulting Provider: Shane Light Consulting Physician: Shane Light Reason for Consult: Welfare Adviser 04/05/19 05:00 Wound Care [Nursing Referral for Wound Care] Routine Comment: Physician Instructions: Reason For Exam: skin tears 04/06/19 13:06 Consult [Physician Consult] Routine Comment: Consulting Provider: Albert Clark Consulting Physician: Albert Clark Reason for Consult: eval for aspira catheter insertion 04/06/19 19:15 Nursing Referral for Palliative Care Routine Comment: Physician Instructions: Reason For Exam: pancreatic cancer, goals of care 04/07/19 03:17 Nursing Referral for Wound Care Routine Comment: leakage from paracentesis site Physician Instructions: Reason For Exam: skin tears on arm & knee area 04/07/19 13:19 Physician Consult Routine Comment: Consulting Provider: Karli Tristan Consulting Physician: Karli Tristan Reason for Consult: POLST DNR/DNI Time Spent in preparation of Discharge (in minutes): 45 Hospital Course - Lab Results Lab Results: Micro Results 04/02/19 13:30 Blood Blood Culture - Final NO GROWTH AFTER 5 DAYS 04/02/19 13:30 Blood Gram Stain - Final TEST NOT PERFORMED 04/02/19 13:00 Blood Blood Culture - Final NO GROWTH AFTER 5 DAYS 04/02/19 13:00 Blood Gram Stain - Final TEST NOT PERFORMED 04/02/19 15:45 Urine Random Urine Culture - Final Enterococcus Faecalis Yeast Species 04/03/19 23:24 Stool C. difficile Antigen & Toxins A,B - Final Most Recent Lab Values WBC 5.7 10^3/uL (4.5-11.0) 04/07/19 06:00 RBC 3.47 10^6/uL (3.5-6.1) L 04/07/19 06:00 Hgb 9.6 g/dL (14.0-18.0) L 04/07/19 06:00 Hct 29.5 % (42.0-52.0) L 04/07/19 06:00 MCV 85.0 fl (80.0-105.0) 04/07/19 06:00 MCH 27.7 pg (25.0-35.0) 04/07/19 06:00 MCHC 32.5 g/dl (31.0-37.0) 04/07/19 06:00 RDW 18.1 % (11.5-14.5) H 04/07/19 06:00 Plt Count 203 10^3/uL (120.0-450.0) 04/07/19 06:00 MPV 9.7 fl (7.0-11.0) 04/07/19 06:00 Neut % (Auto) 62.9 % (50.0-68.0) 04/07/19 06:00 Lymph % (Auto) 20.7 % (22.0-35.0) L 04/07/19 06:00 [place] % (Auto) 14.8 % (1.0-6.0) H 04/07/19 06:00 Eos % (Auto) 1.2 % (1.5-5.0) L 04/07/19 06:00 Baso % (Auto) 0.4 % (0.0-3.0) 04/07/19 06:00 Lymph # (Auto) 1.2 (1.2-3.4) 04/07/19 06:00 [place] # (Auto) 0.8 (0.1-0.6) H 04/07/19 06:00 Eos # (Auto) 0.1 (0.0-0.7) 04/07/19 06:00 Baso # (Auto) 0.02 K/mm3 (0.0-2.0) 04/07/19 06:00 Absolute Neuts (auto) 3.56 (1.4-6.5) 04/07/19 06:00 PT 11.9 SECONDS (9.4-12.5) 04/01/19 18:06 INR 1.07 04/01/19 18:06 APTT 30.7 Seconds (26.9-38.3) 04/01/19 18:06 Sodium 136 mmol/L (132-148) 04/07/19 06:00 Potassium 3.5 mmol/L (3.6-5.0) L 04/07/19 06:00 Chloride 110 mmol/L (98-107) H 04/07/19 06:00 Carbon Dioxide 21 mmol/L (21-33) 04/07/19 06:00 Anion Gap 9 (10-20) L 04/07/19 06:00 BUN 9 mg/dL (7-21) 04/07/19 06:00 Creatinine 0.6 mg/dl (0.8-1.5) L 04/07/19 06:00 Est GFR ( Amer) > 60 04/07/19 06:00 Est GFR (Non-Af Amer) > 60 04/07/19 06:00 Random Glucose 104 mg/dL (70-110) 04/07/19 06:00 Calcium 8.6 mg/dL (8.4-10.5) 04/07/19 06:00 Magnesium 2.0 mg/dL (1.7-2.2) 04/05/19 05:10 Total Bilirubin 2.1 mg/dL (0.2-1.3) H 04/07/19 06:00 AST 116 U/L (17-59) H 04/07/19 06:00 ALT 112 U/L (7-56) H 04/07/19 06:00 Alkaline Phosphatase 1423 U/L (38-126) H 04/07/19 06:00 Ammonia 30 umol/L (9-33) 04/07/19 06:00 Lactate Dehydrogenase 556 U/L (333-699) 04/01/19 18:06 Total Creatine Kinase < 20 U/L (35-230) L 04/01/19 18:06 Troponin I 0.11 ng/mL D 04/01/19 18:06 Total Protein 5.1 g/dL (5.8-8.3) L 04/07/19 06:00 Albumin 2.5 g/dL (3.0-4.8) L 04/07/19 06:00 Globulin 2.6 gm/dL 04/07/19 06:00 Albumin/Globulin Ratio 1.0 (1.1-1.8) L 04/07/19 06:00 Procalcitonin 0.90 NG/ML (0.19-0.49) H 04/04/19 13:05 Urine Color Yellow (YELLOW) 04/02/19 15:45 Urine Appearance Clear (CLEAR) 04/02/19 15:45 Urine pH 6.0 (4.7-8.0) 04/02/19 15:45 Ur Specific [place] 1.025 (1.005-1.035) 04/02/19 15:45 Urine Protein Trace mg/dL (<30 mg/dL) H 04/02/19 15:45 Urine Glucose (UA) Negative mg/dL (NEGATIVE) 04/02/19 15:45 Urine Ketones Negative mg/dL (NEGATIVE) 04/02/19 15:45 Urine Blood Negative (NEGATIVE) 04/02/19 15:45 Urine Nitrate Negative (NEGATIVE) 04/02/19 15:45 Urine Bilirubin Small (NEGATIVE) H 04/02/19 15:45 Urine Urobilinogen 4.0 E.U./dL (<1 E.U./dL) H 04/02/19 15:45 Ur Leukocyte Esterase Negative Elif/uL (NEGATIVE) 04/02/19 15:45 Urine RBC 0 - 2 /hpf (0-2) 04/02/19 15:45 Urine WBC 0 - 2 /hpf (0-6) 04/02/19 15:45 Ur Epithelial Cells 1 - 3 /hpf (0-5) 04/02/19 15:45 - Hospital Course Hospital Course: Mr. Godoy is an 88-year-old male who presented to the [facility] emergency department with complaints of worsening abdominal distention as well as abdominal pain generalized fatigue. Patient is a chronic patient of Dr. Nguyen and has been diagnosed with metastatic pancreatic cancer for which hes not receiving any chemotherapy at this time. Throughout the course of Mr. Doll hospitalization, he received a few doses of albumin to try to keep ascitic fluid to a minimum. He also had a therapeutic top of the ascitic fluid, and 3200 mL were taken out. Patient obtained some relief from this procedure. Patient was also known to become hypotensive throughout his admission, however he remained asymptomatic. His new baseline might be in the 90s over 60s for blood pressure. Patient was also evaluated for severe sepsis and septic shock but no source of infection could be identified, and patientShowed no symptoms or signs of infection besides fatigue and hypotension which are not service criteria. On day of discharge patient was also started on Aldactone to help with the Ascitic fluid build up. Patients family was amenable to taking the patient home in caring for him at home. The goal of care right now is to get the patient feeling better and to try to make him comfortable. Patients family still opposed to DNR/DNI status, as well as hospice evaluation. Therefore the current goal of therapy will be to make the patient comfortable and try to make him strong enough to see if he can handle chemotherapy. Patient was discharged on the following medications: Creon oneTID, Elliptical, Flomax, Aldactone, Lactulose, Ultram, B6, Marinol, Florinef, Lactobacillus. Patient was also given a script for Augmentin for five days to complete his antibiotic therapy. Discharge Exam - Head Exam Head Exam: ATRAUMATIC, NORMAL INSPECTION, NORMOCEPHALIC - Eye Exam Eye Exam: EOMI, Normal appearance, PERRL Pupil Exam: NORMAL ACCOMODATION, PERRL - ENT Exam ENT Exam: Normal Exam - Respiratory Exam Respiratory Exam: Clear to PA & Lateral, UNREMARKABLE - Cardiovascular Exam Cardiovascular Exam: REGULAR RHYTHM - GI/Abdominal Exam GI & Abdominal Exam: Distended, Normal Bowel Sounds, Soft, Tenderness Additional comments: Patient - Extremities Exam Extremities exam: normal inspection - Back Exam Back exam: NORMAL INSPECTION - Neurological Exam Neurological exam: Alert, CN II-XII Intact, Normal Gait, Oriented x3, Reflexes Normal - Psychiatric Exam Psychiatric exam: Normal Affect, Normal Mood - Skin Skin Exam: Dry, Intact, Normal Color, Warm Discharge Plan - Discharge Medications Prescriptions: Amoxicillin/Clavulanate [Augmentin 875 MG-125 MG Tab] 1 tab PO Q12 #10 tab Dronabinol [Marinol] 2.5 mg PO BID #60 cap Fludrocortisone [Florinef] 0.1 mg PO DAILY #39 tab Fluticasone/Vilanterol [Breo Ellipta 100-25 Mcg INH] 1 puff IH QAM #1 blst.w.dev Lactobacillus Acidophilus [Bacid Acidophilus] 1 cap PO BID #60 cap Lactulose [Enulose] 10 gm PO BID #60 udc Spironolactone [Aldactone] 12.5 mg PO BID #30 tab traMADol [Ultram] 50 mg PO Q8 PRN #60 tab PRN Reason: Pain, Moderate (4-7) - Follow Up Plan Condition: SERIOUS Disposition: HOME/ ROUTINE Instructions: Acute Abdomen (Belly Pain), Adult (DC), Tramadol, Abdominal Paracentesis (DC) Additional Instructions: Please follow up with Dr. Pearson within one week Please return to the emergency room if symptoms return or worsen Please take your new medication, Aldactone, as directed <Katy Pearson P - Last Filed: 04/09/19 15:38> Provider - Provider Date of Admission: 04/01/19 20:14 Attending physician: Ruperto Tatum MD Consults: 04/01/19 20:10 Physician Consult Routine Comment: Consulting Provider: Junior Cavazos Consulting Physician: Junior Cavazos Reason for Consult: troponin 0.11, hx of sob 04/01/19 20:11 Physician Consult Routine Comment: Consulting Provider: Toby Abebe Consulting Physician: Toby Abebe Reason for Consult: abdominal pain, request by PMD 04/01/19 21:19 Consult [Physician Consult] Routine Comment: Consulting Provider: Raymundo Sinclair Consulting Physician: Raymundo Sinclair Reason for Consult: GI 04/01/19 21:20 Consult [Physician Consult] Routine Comment: Consulting Provider: Shane Light Consulting Physician: Shane Light Reason for Consult: Welfare Adviser 04/05/19 05:00 Wound Care [Nursing Referral for Wound Care] Routine Comment: Physician Instructions: Reason For Exam: skin tears 04/06/19 13:06 Consult [Physician Consult] Routine Comment: Consulting Provider: Albert Clark Consulting Physician: Albert Clark Reason for Consult: eval for aspira catheter insertion 04/06/19 19:15 Nursing Referral for Palliative Care Routine Comment: Physician Instructions: Reason For Exam: pancreatic cancer, goals of care 04/07/19 03:17 Nursing Referral for Wound Care Routine Comment: leakage from paracentesis site Physician Instructions: Reason For Exam: skin tears on arm & knee area 04/07/19 13:19 Physician Consult Routine Comment: Consulting Provider: Karli Tristan Consulting Physician: Karli Tristan Reason for Consult: POLST DNR/DNI Hospital Course - Lab Results Lab Results: Micro Results 04/02/19 13:30 Blood Blood Culture - Final NO GROWTH AFTER 5 DAYS 04/02/19 13:30 Blood Gram Stain - Final TEST NOT PERFORMED 04/02/19 13:00 Blood Blood Culture - Final NO GROWTH AFTER 5 DAYS 04/02/19 13:00 Blood Gram Stain - Final TEST NOT PERFORMED 04/02/19 15:45 Urine Random Urine Culture - Final Enterococcus Faecalis Yeast Species 04/03/19 23:24 Stool C. difficile Antigen & Toxins A,B - Final Most Recent Lab Values WBC 5.7 10^3/uL (4.5-11.0) 04/07/19 06:00 RBC 3.47 10^6/uL (3.5-6.1) L 04/07/19 06:00 Hgb 9.6 g/dL (14.0-18.0) L 04/07/19 06:00 Hct 29.5 % (42.0-52.0) L 04/07/19 06:00 MCV 85.0 fl (80.0-105.0) 04/07/19 06:00 MCH 27.7 pg (25.0-35.0) 04/07/19 06:00 MCHC 32.5 g/dl (31.0-37.0) 04/07/19 06:00 RDW 18.1 % (11.5-14.5) H 04/07/19 06:00 Plt Count 203 10^3/uL (120.0-450.0) 04/07/19 06:00 MPV 9.7 fl (7.0-11.0) 04/07/19 06:00 Neut % (Auto) 62.9 % (50.0-68.0) 04/07/19 06:00 Lymph % (Auto) 20.7 % (22.0-35.0) L 04/07/19 06:00 [place] % (Auto) 14.8 % (1.0-6.0) H 04/07/19 06:00 Eos % (Auto) 1.2 % (1.5-5.0) L 04/07/19 06:00 Baso % (Auto) 0.4 % (0.0-3.0) 04/07/19 06:00 Lymph # (Auto) 1.2 (1.2-3.4) 04/07/19 06:00 [place] # (Auto) 0.8 (0.1-0.6) H 04/07/19 06:00 Eos # (Auto) 0.1 (0.0-0.7) 04/07/19 06:00 Baso # (Auto) 0.02 K/mm3 (0.0-2.0) 04/07/19 06:00 Absolute Neuts (auto) 3.56 (1.4-6.5) 04/07/19 06:00 PT 11.9 SECONDS (9.4-12.5) 04/01/19 18:06 INR 1.07 04/01/19 18:06 APTT 30.7 Seconds (26.9-38.3) 04/01/19 18:06 Sodium 136 mmol/L (132-148) 04/07/19 06:00 Potassium 3.5 mmol/L (3.6-5.0) L 04/07/19 06:00 Chloride 110 mmol/L (98-107) H 04/07/19 06:00 Carbon Dioxide 21 mmol/L (21-33) 04/07/19 06:00 Anion Gap 9 (10-20) L 04/07/19 06:00 BUN 9 mg/dL (7-21) 04/07/19 06:00 Creatinine 0.6 mg/dl (0.8-1.5) L 04/07/19 06:00 Est GFR ( Amer) > 60 04/07/19 06:00 Est GFR (Non-Af Amer) > 60 04/07/19 06:00 Random Glucose 104 mg/dL (70-110) 04/07/19 06:00 Calcium 8.6 mg/dL (8.4-10.5) 04/07/19 06:00 Magnesium 2.0 mg/dL (1.7-2.2) 04/05/19 05:10 Total Bilirubin 2.1 mg/dL (0.2-1.3) H 04/07/19 06:00 AST 116 U/L (17-59) H 04/07/19 06:00 ALT 112 U/L (7-56) H 04/07/19 06:00 Alkaline Phosphatase 1423 U/L (38-126) H 04/07/19 06:00 Ammonia 30 umol/L (9-33) 04/07/19 06:00 Lactate Dehydrogenase 556 U/L (333-699) 04/01/19 18:06 Total Creatine Kinase < 20 U/L (35-230) L 04/01/19 18:06 Troponin I 0.11 ng/mL D 04/01/19 18:06 Total Protein 5.1 g/dL (5.8-8.3) L 04/07/19 06:00 Albumin 2.5 g/dL (3.0-4.8) L 04/07/19 06:00 Globulin 2.6 gm/dL 04/07/19 06:00 Albumin/Globulin Ratio 1.0 (1.1-1.8) L 04/07/19 06:00 Procalcitonin 0.90 NG/ML (0.19-0.49) H 04/04/19 13:05 Urine Color Yellow (YELLOW) 04/02/19 15:45 Urine Appearance Clear (CLEAR) 04/02/19 15:45 Urine pH 6.0 (4.7-8.0) 04/02/19 15:45 Ur Specific [place] 1.025 (1.005-1.035) 04/02/19 15:45 Urine Protein Trace mg/dL (<30 mg/dL) H 04/02/19 15:45 Urine Glucose (UA) Negative mg/dL (NEGATIVE) 04/02/19 15:45 Urine Ketones Negative mg/dL (NEGATIVE) 04/02/19 15:45 Urine Blood Negative (NEGATIVE) 04/02/19 15:45 Urine Nitrate Negative (NEGATIVE) 04/02/19 15:45 Urine Bilirubin Small (NEGATIVE) H 04/02/19 15:45 Urine Urobilinogen 4.0 E.U./dL (<1 E.U./dL) H 04/02/19 15:45 Ur Leukocyte Esterase Negative Elif/uL (NEGATIVE) 04/02/19 15:45 Urine RBC 0 - 2 /hpf (0-2) 04/02/19 15:45 Urine WBC 0 - 2 /hpf (0-6) 04/02/19 15:45 Ur Epithelial Cells 1 - 3 /hpf (0-5) 04/02/19 15:45 Attending/Attestation - Attestation I have personally seen and examined this patient.: Yes I have fully participated in the care of the patient.: Yes I have reviewed all pertinent clinical information, including history, physical exam and plan: Yes
== END 2019-04-07 18:00 | disposition home or self-care (01) | DRG 872 ==
LOC: ED 17:05 → ERH 20:14 → 2RSO 21:46 → 3RNO 04-02 20:42
PROVIDERS: ADMIT Family Medicine; ATTEND Family Medicine
PROC: 0W9G3ZZ Drainage of Peritoneal Cavity, Percutaneous Approach (ICD-10-PCS; principal; 2019-04-06)
DX: A41.9 Sepsis, unspecified organism (principal); C25.9 Malignant neoplasm of pancreas, unspecified; R18.0 Malignant ascites; C78.7 Secondary malignant neoplasm of liver and intrahepatic bile duct; K52.1 Toxic gastroenteritis and colitis; R65.20 Severe sepsis without septic shock; T47.3X5A Adverse effect of saline and osmotic laxatives, initial encounter; R63.0 Anorexia; R26.2 Difficulty in walking, not elsewhere classified; J44.9 Chronic obstructive pulmonary disease, unspecified; G89.3 Neoplasm related pain (acute) (chronic); D63.8 Anemia in other chronic diseases classified elsewhere; E78.5 Hyperlipidemia, unspecified; R62.7 Adult failure to thrive; K21.9 Gastro-esophageal reflux disease without esophagitis; N40.0 Benign prostatic hyperplasia without lower urinary tract symptoms; I25.10 Atherosclerotic heart disease of native coronary artery without angina pectoris; I45.10 Unspecified right bundle-branch block; I10 Essential (primary) hypertension; K59.00 Constipation, unspecified; K80.20 Calculus of gallbladder without cholecystitis without obstruction; Z79.82 Long term (current) use of aspirin; Z79.899 Other long term (current) drug therapy; Z87.891 Personal history of nicotine dependence; Z92.21 Personal history of antineoplastic chemotherapy; Z95.5 Presence of coronary angioplasty implant and graft